=== PATIENT | female | born 1980 | race Caucasian/White ===

== ENCOUNTER 2020-11-27 14:43 | Outpatient (CLI) | payer OTHER, SELFPAY ==
--- NOTE | ~2020-11-27 | MM_ITS ---
EXAMINATION: MM screening [place] [facility] w jaciel HISTORY: Screening TECHNIQUE: Craniocaudal and mediolateral oblique 3-D tomosynthesis images were obtained and synthetic 2-D images were generated. CAD analysis was submitted and interpreted. COMPARISON: No prior mammogram is available for comparison at this institution. BREAST PARENCHYMAL COMPOSITION: There are scattered areas of fibroglandular density. FINDINGS: There is no evidence of suspicious mass, calcification, or architectural distortion to sugg est malignancy in either breast. There has been no suspicious interval change. IMPRESSION: 1. No mammographic evidence of malignancy. 2. Recommend routine screening mammography in one year. BI-RADS Category 1: Negative Reviewed, dictated and finalized at location A.
== END 2020-11-27 14:44 | disposition home or self-care (01) ==
LOC: ANHIMG 14:49
PROVIDERS: PCP Family Medicine; Visit Provider Nurse Practitioner Obstetrics & Gynecology
DX: Z12.31 Encounter for screening mammogram for malignant neoplasm of breast (principal)
CPT/HCPCS: 77063; 77067

== ENCOUNTER 2023-08-18 15:23 | Outpatient (CLI) | payer OTHER, SELFPAY ==
--- NOTE | ~2023-08-18 | MM_ITS ---
EXAMINATION: MM screening [place] [facility] w jaciel HISTORY: Screening mammogram TECHNIQUE: Craniocaudal and mediolateral oblique 3-D tomosynthesis images were obtained and synthetic 2-D images were generated. CAD analysis was submitted and interpreted. COMPARISON: 11/27/2020 bilateral screening mammogram BREAST PARENCHYMAL COMPOSITION: The breasts are almost entirely fatty. FINDINGS: There is no evidence of suspicious mass, calcification, or architectural distortion to sugg est malignancy in either breast. There has been no suspicious interval change. IMPRESSION: 1. No mammographic evidence of malignancy. 2. Recommend routine screening mammography in one year. BI-RADS Category 1: Negative Reviewed, dictated and finalized at location A.
== END 2023-08-18 15:24 | disposition home or self-care (01) ==
LOC: ANHIMG 15:24
PROVIDERS: PCP Internal Medicine; Visit Provider Nurse Practitioner Obstetrics & Gynecology
DX: Z12.31 Encounter for screening mammogram for malignant neoplasm of breast (principal)
CPT/HCPCS: 77063; 77067

== ENCOUNTER 2023-12-22 09:15 | Inpatient (IN) | payer MEDICARE, OTHER, SELFPAY ==
[2023-12-22] VITALS (17 sets, daily range): BP systolic 122–165; BP diastolic 75–102; PULSE 59–99; RESP 16–23; TEMP 36.7–36.8; O2SAT 95–100; BMI 43.0
--- NOTE | ~2023-12-22 | MR_ITS ---
EXAMINATION: MR thoracic spine wo con DATE: 12/22/2023 14:40 INDICATION: Saddle anesthesia. Low back pain. Lower extremity weakness. TECHNIQUE: Magnetic resonance imaging (MRI) of the thoracic spine was performed without intravenous c ontrast. COMPARISON: Lumbar spine MRI 12/19/2023 FINDINGS: There is 5 degrees levocurvature of upper thoracic spine. There is mild chronic anterior we dging of T8 vertebral body. There are Schmorl's nodes at multiple levels. There is mildly decreased d isc height from T2-T3 through T4-T5 and T7-T8 through T9-T10. At T2-T3, the disc is bulging with mild central canal stenosis. At T7-T8, there is a left central extrusion with mild central canal stenosis and indentation of the spinal cord. At T9-T10, there is a central extrusion with mild central canal stenosis and indentation of the spinal cord. There is multilevel mild facet joint osteoarthritis. On the right, there is mild neural foraminal stenosis at T2-T3. In the left, there is mild neural forami nal stenosis at T2-T3. There is increased T2-weighted signal intensity in the spinal cord involving t he torres matter at T9-T10. IMPRESSION: 1. Mild thoracic spondylosis. 2. 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 Reviewed, dictated and finalized at location A.
--- NOTE | ~2023-12-22 | XR_ITS ---
EXAMINATION: 1. CT cervical spine w con 2. XR myelogram spine cervical DATE: 12/28/2023 10:44 INDICATION: Cervical stenosis. TECHNIQUE: The procedure including the risks, benefits, and alternatives was discussed with the patie nt. Risks discussed included spinal headache, bleeding, and infection. The patient understood the ris ks and agreed to proceed. A timeout was performed to verify the patient's name, date of , and procedure to be performed. The skin overlying the L2-L3 level was prepped and draped in usual steri le fashion. Subcutaneous 1% lidocaine was used for local anesthesia. A 22 gauge spinal needle was a dvanced under fluoroscopic guidance. 10 mL Omnipaque 300 was injected into the thecal sac. The needle was removed and the entry site was cleaned and dressed. Multiple fluoroscopic images were obtained. There were no immediate complications. Fluoroscopy exposure time was 0.2 minutes. The total number of images was 3. Computed tomography (CT) of the thoracic spine was performed without intravenous contr ast. Automated exposure control and iterative reconstruction technique were employed. The dose-length product was 455.88 mGy-cm. COMPARISON: Cervical spine MRI 12/23/2023 FINDINGS: CERVICAL MYELOGRAM: Images demonstrate the needle in the thecal sac at L2-L3. Images demonstrate disp lacement of contrast to the cervical spine with the patient's head down. The contrast is faint by flu oroscopy and will be further described on the post myelogram CT. POST MYELOGRAM CERVICAL SPINE CT: There is 5 degrees levocurvature of the cervical spine. Vertebral b jodi heights are normal. Intervertebral disc heights are normal. The following disc levels are specifi rajeev discussed: C2-C3: There is moderate left uncovertebral joint osteoarthritis. There is mild bilateral facet joint osteoarthritis. There is mild left neural foraminal stenosis. There is no central canal stenosis. C3-C4: There is severe right uncovertebral joint osteoarthritis. There is mild bilateral facet joint osteoarthritis. There is mild right neural foraminal stenosis. There is no central canal stenosis. C4-C5: There is mild right and moderate left uncovertebral joint osteoarthritis. There is moderate le ft facet joint osteoarthritis. There is mild left neural foraminal stenosis. There is no central lalo l stenosis. C5-C6: There is a central extrusion. There is mild bilateral uncovertebral joint osteoarthritis. Ther e is mild bilateral facet joint osteoarthritis. There is no neural foraminal stenosis. There is mild central canal stenosis with ventral indentation of the spinal cord. C6-C7: There is no uncovertebral joint osteoarthritis. There is mild bilateral facet joint osteoarthr itis. There is no neural foraminal stenosis. There is no central canal stenosis. C7-T1: There is a central extrusion. There is mild right uncovertebral joint osteoarthritis. There is mild bilateral facet joint osteoarthritis. There is mild right neural foraminal stenosis. There is m ild central canal stenosis. IMPRESSION: 1. Mild cervical spondylosis. Reviewed, dictated and finalized at location A. IMPRESSION: 1. Mild cervical spondylosis.
--- NOTE | ~2023-12-22 | MR_ITS ---
Procedure: MR thoracic spine wo/w con Ordering provider: Micheline Shepherd History: . MS protocol . Comparison: None. Technique: MRI thoracic spine with and without contrast. 20 mL of MultiHance was given IV. FINDINGS: Motion artifacts degrading the images. SPINAL CORD: No definite abnormality seen. No abnormal enhancement of the spinal cord or spinal canal . VERTEBRAL BODIES: Normal height and alignment. No compression fracture. Normal marrow signal. No abno rmal marrow enhancement. DISK SPACES: Normal. STENOSIS: None. PARASPINOUS SOFT TISSUES: Normal. No abnormal enhancement of the paraspinous soft tissues. IMPRESSION: No definite abnormality seen with no definite enhancing lesions. Reviewed, dictated and finalized at location A.
--- NOTE | ~2023-12-22 | MR_ITS ---
MR brain/brain stem wo/w con Ordering provider: Micheline Shepherd PA-C History: 43 years Female with . MS protocol . Comparison: None. Technique: MRI brain was performed with and without contrast. 20 mL MultiHance was given IV. FINDINGS: BONES: Normal. CRANIOCERVICAL JUNCTION: normal. PITUITARY: Normal. MAJOR INTRACRANIAL VESSELS: Normal flow void. OPTIC NERVES AND CRANIAL NERVES VII AND VIII COMPLEXES: Grossly normal. BRAIN PARENCHYMA AND CSF SPACES: No visible white matter disease. The brainstem and cerebellum are n ormal. No acute or chronic intracranial hemorrhage. No extra axial fluid collections. Diffusion weigh argenis and ADC mapping images reveal no recent ischemia. No midline shift or mass effect. No abnormal co ntrast enhancement. PARANASAL SINUSES: Bilateral ethmoid sinus disease. MASTOIDS: Normal SUPERFICIAL/SURROUNDING SOFT TISSUES: Normal. IMPRESSION: 1. No acute intracranial process. No evidence of multiple sclerosis 2. No abnormal enhancement. Reviewed, dictated and finalized at location A.
--- NOTE | ~2023-12-22 | XR_ITS ---
EXAMINATION: XR lumbar puncture diagnostic DATE: 12/23/2023 22:12 INDICATION: Suspected acute transverse myelitis with several anesthesia and lower extremity weakness TECHNIQUE: The procedure including the risks and benefits was discussed with the patient. Risks discu ssed included spinal headache, cerebrospinal fluid leak, bleeding, and infection. The patient underst ood the risks and agreed to proceed. A timeout was performed to verify the patient's name, date of , and procedure to be performed. The skin overlying the L5-S1 level was prepped and draped in usual sterile fashion. Subcutaneous 1% lidocaine was used for local anesthesia. A 22 gauge spinal n eedle was advanced under fluoroscopic guidance. The needle was removed and the entry site was cleaned and dressed. There were no immediate complications. A total of 2 fluoroscopic images and a crosstab le lateral radiograph were obtained. The amount of fluoroscopy time used during this procedure was 0. 2 minutes. Total DAP was 33.03 Gycm^2. There were no immediate complications. FINDINGS: Real-time fluoroscopy demonstrates the needle at the L5-S1 level. Opening pressure was 19 c m water. (Normal range is variably defined as 6-20 cm water and up to 25 cm water in obese patients. Pressure >25 cm water is one of the modified Dandy criteria for idiopathic intracranial hypertension) . 13 mL of clear, colorless fluid was collected in 4 tubes. IMPRESSION: 1. Successful fluoro-guided lumbar puncture with normal opening pressure of 19 cm water. Reviewed, dictated and finalized at location A.
--- NOTE | ~2023-12-22 | XR_ITS ---
EXAMINATION: XR chest 2V DATE: 12/22/2023 11:23 INDICATION: Lower extremity weakness. Low back pain. Saddle anesthesia. TECHNIQUE: Frontal and lateral views of the chest were obtained. COMPARISON: None. FINDINGS: There is no pneumonia, pleural effusion, or pneumothorax. The heart size is normal. There a re surgical clips in the abdomen. IMPRESSION: 1. No acute cardiopulmonary disease. Reviewed, dictated and finalized at location A.
--- NOTE | ~2023-12-22 | MR_ITS ---
MR cervical spine wo/w con Ordering provider: Micheline Shepherd History: . MS protocol . Comparison: None. Technique: MRI cervical spine with and without contrast enhancement. 20 mL MultiHance was given IV. FINDINGS: CERVICAL SPINAL CORD/CRANIAL CERVICAL JUNCTION: T2 hyperintense signal areas seen in the cord opposit e the inferior aspect of C7. Marrow reconversion is seen in the C2, C3 and C4 versus hemangiomas. Nor mal in signal and caliber. No abnormal enhancement. CERVICAL VERTEBRAL BODIES: Normal height and alignment. Normal marrow signal. No abnormal marrow enha ncement. DISK SPACES: Well maintained. C2-C3: No stenosis. C3-C4: No stenosis. Diffuse disc bulge with slight narrowing of the right intervertebral foramen with nerve root compression.. C4-C5: Moderate spinal canal stenosis secondary to broad based disc bulge. Narrowing of the right in tervertebral foramen with root compression. C5-C6: Severe spinal canal stenosis secondary to broad based disc bulge. Slight narrowing of the rig ht intervertebral foramen. C6-C7: Mild spinal canal stenosis secondary to broad based disc bulge. Bilateral narrowing of the fo ramina with nerve root compression. C7-T1: No stenosis. VISUALIZED PARASPINOUS SOFT TISSUES: Normal. No abnormal enhancement. IMPRESSION: 1. Very small T2 hyperintense signal focus seen in the colon opposite C7 which may be a plaque. Foll ow-up advised. 2. Multilevel degenerative disc disease with variable degrees of spinal canal stenosis, intervertebr al foraminal narrowing and the root compression. 3. No abnormal enhancing lesions seen. Reviewed, dictated and finalized at location A. IMPRESSION: 1. Very small T2 hyperintense signal focus seen in the colon opposite C7 which may be a plaque. Follow-up advised. 2. Multilevel degenerative disc disease with variable degrees of spinal canal stenosis, intervertebral foraminal narrowing and the root compression. 3. No abnormal enhancing lesions seen.
--- NOTE | 2023-12-22 09:47 | ED.BACK ---
HPI - Back Pain/Injury General Chief Complaint: Back Pain/Injury <Micheline Shepherd PA-C - Last Filed: 12/22/23 18:31> Stated Complaint: lower back pain, bilateral leg numbness <RAYSA Ho Last Filed: 12/22/23 18:31> Time Seen by Provider: 12/22/23 09:23 <RAYSA Ho Last Filed: 12/22/23 18:31> Source: patient <RAYSA Ho Last Filed: 12/22/23 18:31> Mode of arrival: ambulatory (with walker) <RAYSA Ho Last Filed: 12/22/23 18:31> Limitations: no limitations <RAYSA Ho Last Filed: 12/22/23 18:31> History of Present Illness HPI Narrative: This is a 43-year-old female that presents to the emergency department for lower extremity weakness. Reports she called her neurosurgeon Dr Gaspar and was prompted to be seen in the ER for an MRI of her lumbar spine. Reports over the last several weeks she has had numbness in her right leg. Reports the last couple of days she now has numbness in her left leg. Reports numbness in her groin as well. She has not experienced bowel/bladder incontinence, but reports she just goes to the bathroom every couple hours to avoid that because she is unsure when she needs to urinate. Reports she has still been able to walk, but has to shuffle and use a walker. Denies fevers. <Micheline Shepherd PA-C - Last Filed: 12/22/23 18:31> Related Data Home Medications: Home Medications Medication Instructions Recorded Confirmed adalimumab 40 mg/0.4 mL 40 mg subcut [id number] 12/22/23 subcutaneous pen kit (Humira(CF) Pen) albuterol sulfate 90 mcg/actuation 2 inh inhalation Q4H PRN Shortness 12/22/23 12/22/23 aerosol inhaler Of Breath Or Wheezing aspirin 81 mg tablet,delayed 81 mg PO DAILY 12/22/23 12/22/23 release (Fred Low Dose Aspirin) clindamycin phosphate 1 % lotion 1 applic topical DAILY PRN Skin 12/22/23 12/22/23 Irritation doxycycline monohydrate 100 mg 100 mg PO BID 12/22/23 12/22/23 capsule furosemide 20 mg tablet 20 mg PO DAILY 12/22/23 12/22/23 hydroxychloroquine 200 mg tablet 200 mg PO BID 12/22/23 12/22/23 ketoconazole 2 % topical cream 1 applic topical BID PRN Skin 12/22/23 12/22/23 Irritation pantoprazole 40 mg tablet,delayed 40 mg PO DAILY 12/22/23 12/22/23 release prednisone 20 mg tablet 40 mg PO DAILY 12/22/23 12/22/23 rosuvastatin 40 mg tablet 40 mg PO DAILY 12/22/23 12/22/23 spironolactone 100 mg tablet 100 mg PO DAILY 12/22/23 12/22/23 triamcinolone acetonide 0.1 % 1 applic topical BID PRN Skin 12/22/23 12/22/23 topical cream Irritation varenicline 1 mg tablet 1 mg PO DAILY 12/22/23 12/22/23 gabapentin 100 mg capsule 100 mg PO BID 12/23/23 12/23/23 gabapentin 300 mg capsule 300 mg PO QHS 12/23/23 12/23/23 <Micheline Shepherd PA-C - Last Filed: 12/22/23 18:31> Allergies/Adverse Reactions: Allergies Allergy/AdvReac Type Severity Reaction Status Date / Time No Known Drug Allergies Allergy Mild Verified 06/21/09 19:23 <Micheline Shepherd PA-C - Last Filed: 12/22/23 18:31> Review of Systems Review of Systems: CONSTITUTIONAL: Denies fever MUSCULOSKELETAL: Reports back pain NEUROLOGIC: Reports numbness, and weakness. <RAYSA Ho Last Filed: 12/22/23 18:31> All systems reviewed & are unremarkable except as noted in HPI and below <Micheline Shepherd PA-C - Last Filed: 12/22/23 18:31> [facility] Past Medical History Medical History: Medical History (Updated 12/23/23 @ 05:09 by Antonieta Ornelas DO) Asthma Cutaneous lupus erythematosus Degenerative disc disease Essential hypertension GERD (gastroesophageal reflux disease) Hyperlipidemia Migraine Obstructive sleep apnea Rheumatoid arthritis <Micheline Shepherd PA-C - Last Filed: 12/22/23 18:31> Surgical History Surgical History: Surgical History (Updated 12/23/23 @ 05:09 by Antonieta Ornelas DO) History of (2001) History of cardiac catheterization No stents Hx of cholecystectomy (~12/2022) <Micheline Shepherd PA-C - Last Filed: 12/22/23 18:31> Social History Social History: Social History (Updated 12/22/23 @ 10:16 by Micheline Shepherd PA-C) Smoking status: Light tobacco smoker Tobacco type: cigarettes Alcohol intake: current Drinks per week: 1 Substance use: current Substance use type: marijuana Other substance usage details: daily Last use: 12/22/23 Do You Feel Safe in your Home?: Yes Lack of Transportation: No Lack of Food: Never True Current Housing: I Have Housing Concerned About Future Housing: No Difficulty Paying Gas/Electric Bills: No Difficulty Paying for Meds: No Currently Unemployed: No Education: Associate Degree Difficulty w/ Childcare or Family Care: No Spiritual care concerns: No <Micheline Shepherd PA-C - Last Filed: 12/22/23 18:31> Exam Narrative: GENERAL: Well-appearing, well-nourished, and in no acute distress. HEAD: Normocephalic, atraumatic. EYES: EOMI. CHEST: Clear to auscultation. No respiratory distress. No wheezes rales or rhonchi HEART: Regular rate and rhythm. No murmur heard. Normal peripheral pulses. EXTREMITIES: Normal range of motion in the feet and ankle. Unable to bend at the knee due to weakness. No edema. Normal DP pulses. Patient unable to feel pinprick to the legs bilaterally SKIN: Warm, dry, no rash. NEURO: No focal deficits. Alert and oriented x3. PSYCH: Normal mood and affect <Micheline Shepherd PA-C - Last Filed: 12/22/23 18:31> Course Course Emergency Course: We are not able to get an MRI today, Dr. Gaspar recommends transfer to somewhere who can do a more urgent MRI Spoke with Dr. Gaspar again. As I was not able to get patient transferred. Initial plan was for MRI in the morning. Dr Gaspar believes she still needs imaging more urgently than that. MRI is able to get her in this afternoon <Micheline Shepherd PA-C - Last Filed: 12/22/23 18:31> CLINICAL OPERATIONS MANAGER/PA Physician Supervision For this patient encounter, I reviewed the CLINICAL OPERATIONS MANAGER or PA documentation, treatment plan, and medical decision making; and I had [id number] time with this patient. <Cayden Scherer MD - Last Filed: 12/23/23 07:28> Consultations Consultation #1: Spoke with Dr. Gaspar about patient and workup who would like patient to have an urgent MRI of the thoracic spine in the ER for surgical planning Dr. Gaspar does not see any structural lesions that would need immediate surgery/ explain the myelomalacia at T9/10. Recommends admission with neurology consult <Micheline Shepherd PA-C - Last Filed: 12/22/23 18:31> Date: 12/22/23 <Micheline Shepherd PA-C - Last Filed: 12/22/23 18:31> Consultation #2: Spoke with [facility] who is unable to accept the patient at this time as they are on red status <Micheline Shepherd PA-C - Last Filed: 12/22/23 18:31> Date: 12/22/23 <Micheline Shepherd PA-C - Last Filed: 12/22/23 18:31> Consultation #3: Spoke with [facility] hospital system. Patient was initially accepted by the hospitalist at [facility]. Neurosurgery then declined to consult for transfer <Micheline Shepherd PA-C - Last Filed: 12/22/23 18:31> Date: 12/22/23 <Micheline Shepherd PA-C - Last Filed: 12/22/23 18:31> Additional Consultation(s): Spoke with Dr. Montero who will consult. Recommends MR with and without contrast of the brain, cervical, and thoracic spine to rule out MS Spoke with hospitalist about patient and workup who accepts admission <Micheline Shepherd PA-C - Last Filed: 12/22/23 18:31> Vital Signs Vital signs: Vital Signs Temperature 98.1 F 12/22/23 09:16 Pulse Rate 60 12/22/23 09:16 Respiratory Rate 18 12/22/23 09:16 Blood Pressure 143/83 H 12/22/23 09:16 Pulse Oximetry 98 12/22/23 09:16 Oxygen Delivery Room Air 12/22/23 09:16 Temperature 98.2 F 12/23/23 05:24 Pulse Rate 57 L 12/23/23 05:24 Respiratory Rate 18 12/23/23 05:24 Blood Pressure 111/74 12/23/23 05:24 Pulse Oximetry 99 12/23/23 05:24 Oxygen Delivery Room Air 12/22/23 20:00 <Micheline Shepherd PA-C - Last Filed: 12/22/23 18:31> Vital Signs Temperature 98.1 F 12/22/23 09:16 Pulse Rate 60 12/22/23 09:16 Respiratory Rate 18 12/22/23 09:16 Blood Pressure 143/83 H 12/22/23 09:16 Pulse Oximetry 98 12/22/23 09:16 Oxygen Delivery Room Air 12/22/23 09:16 Temperature 98.2 F 12/23/23 05:24 Pulse Rate 57 L 12/23/23 05:24 Respiratory Rate 18 12/23/23 05:24 Blood Pressure 111/74 12/23/23 05:24 Pulse Oximetry 99 12/23/23 05:24 Oxygen Delivery Room Air 12/22/23 20:00 <Cayden Scherer MD - Last Filed: 12/23/23 07:28> MDM - Back Pain/Injury MDM Narrative Medical decision making narrative: Patient presents to the emergency department for bilateral lower extremity weakness. Progressively ongoing over the last couple of weeks. Reports saddle anesthesia. She is unable to flex at the knee. She is able to move her feet and ankles. She has normal peripheral pulses. She is insensate to pinprick sensation from the feet to the hips bilaterally. Unable to feel when she needs to urinate. Neurosurgery had sent her to the ER to have an urgent MRI of her thoracic spine. Originally I was likely not going to be able to perform the MRI here in the ER. Dr. Gaspar then recommended transfer to a hospital that would be able to do this. Spoke with [facility] who is unable to accept the patient at this time as they are on red status. Spoke with [facility] system. Patient was initially accepted by the hospitalist at [facility]. Neurosurgery then declined to consult for transfer. Spoke with Dr. Gaspar again. As I was not able to get patient transferred. Initial plan was for MRI in the morning. Dr Gaspar believes she still needs imaging more urgently than that. As she could potentially have a lesion that would not recover as we wait longer. MRI is able to get her in this afternoon. Her MRI of the thoracic spine shows myelomalacia at T9/T10. Dr. Gaspar recommends admission for consult with Neurology as she does not see a structural lesion to explain this. Spoke with Dr. Montero who will consult. Recommends MR with and without contrast of the brain, cervical, and thoracic spine to rule out MS. Spoke with hospitalist about patient and workup accepts admission <Micheline Shepherd PA-C - Last Filed: 12/22/23 18:31> Differential Diagnosis Differential diagnosis: Likely lumbar radiculopathy, discitis and other (MS, transverse myelitis, cauda equina) <Micheline Shepherd PA-C - Last Filed: 12/22/23 18:31> Lab Data Attestation: I reviewed the patient's lab results. <Micheline Shepherd PA-C - Last Filed: 12/22/23 18:31> Result diagrams: 12/22/23 10:16 12/22/23 10:16 <Micheline Shepherd PA-C - Last Filed: 12/22/23 18:31> Labs: Lab Results 12/22/23 12/22/23 Range/Units 10:16 10:55 WBC 10.3 H (4.5-10.0) K/mm3 RBC 4.55 (4.2-5.4) M/mm3 Hgb 14.8 (12.0-15.0) g/dL Hct 43.7 (37.0-47.0) % MCV 96.0 (80-100) fl MCH 32.5 (26-34) pg MCHC 33.9 (32-36) g/dl RDW 13.2 (11.5-14.5) % Plt Count 222 (150-375) k/mm3 MPV 10.2 (7.4-10.4) fl Immature Gran % (Auto) 0.4 (0-0.5) % Neut % (Auto) 85.8 H (45.5-73.1) % Lymph % (Auto) 10.1 L (18.3-44.2) % Knox % (Auto) 3.6 (2.6-8.5) % Eos % (Auto) 0.0 (0-4.4) % Baso % (Auto) 0.1 L (0.2-1.2) % Lymph # (Auto) 1.04 (0.9-3.2) K/mm3 Knox # (Auto) 0.4 (0.1-0.6) K/mm3 Eos # (Auto) 0.0 (0-0.3) K/mm3 Baso # (Auto) 0.0 (0.0-0.1) K/mm3 Abs Immat Gran (auto) 0.04 H (0.00-0.031) K/mm3 Absolute Neuts (auto) 8.9 H (1.3-6.7) K/mm3 Absolute Nucleated RBC 0.000 (0.0-0.012) K/mm3 Nucleated RBC % 0.0 (0.0-0.2) % PT 13.7 (11.1-14.7) Seconds INR 1.0 APTT 22.4 (22.3-36.8) Seconds Sodium 133 L (137-145) mmol/L Potassium 4.7 (3.4-5.0) mmol/L Chloride 102 (98-107) mmol/L Carbon Dioxide 26 (22-30) mmol/L Anion Gap 5 (4-12) mmol/L BUN 16 (7-17) mg/dL Creatinine 1.10 H (0.7-1.0) mg/dL Estim Creat Clear Calc 72 ml/min Estimated GFR 54 L (59 - ) Glucose 113 H (65-110) mg/dL Calcium 9.2 (8.4-10.2) mg/dL POC Urine HCG, Qual Negative POC Ur Preg QC Yes <Micheline Shepherd PA-C - Last Filed: 12/22/23 18:31> Lab Results 12/22/23 12/22/23 Range/Units 10:16 10:55 WBC 10.3 H (4.5-10.0) K/mm3 RBC 4.55 (4.2-5.4) M/mm3 Hgb 14.8 (12.0-15.0) g/dL Hct 43.7 (37.0-47.0) % MCV 96.0 (80-100) fl MCH 32.5 (26-34) pg MCHC 33.9 (32-36) g/dl RDW 13.2 (11.5-14.5) % Plt Count 222 (150-375) k/mm3 MPV 10.2 (7.4-10.4) fl Immature Gran % (Auto) 0.4 (0-0.5) % Neut % (Auto) 85.8 H (45.5-73.1) % Lymph % (Auto) 10.1 L (18.3-44.2) % Knox % (Auto) 3.6 (2.6-8.5) % Eos % (Auto) 0.0 (0-4.4) % Baso % (Auto) 0.1 L (0.2-1.2) % Lymph # (Auto) 1.04 (0.9-3.2) K/mm3 Knox # (Auto) 0.4 (0.1-0.6) K/mm3 Eos # (Auto) 0.0 (0-0.3) K/mm3 Baso # (Auto) 0.0 (0.0-0.1) K/mm3 Abs Immat Gran (auto) 0.04 H (0.00-0.031) K/mm3 Absolute Neuts (auto) 8.9 H (1.3-6.7) K/mm3 Absolute Nucleated RBC 0.000 (0.0-0.012) K/mm3 Nucleated RBC % 0.0 (0.0-0.2) % PT 13.7 (11.1-14.7) Seconds INR 1.0 APTT 22.4 (22.3-36.8) Seconds Sodium 133 L (137-145) mmol/L Potassium 4.7 (3.4-5.0) mmol/L Chloride 102 (98-107) mmol/L Carbon Dioxide 26 (22-30) mmol/L Anion Gap 5 (4-12) mmol/L BUN 16 (7-17) mg/dL Creatinine 1.10 H (0.7-1.0) mg/dL Estim Creat Clear Calc 72 ml/min Estimated GFR 54 L (59 - ) Glucose 113 H (65-110) mg/dL Calcium 9.2 (8.4-10.2) mg/dL POC Urine HCG, Qual Negative POC Ur Preg QC Yes <Cayden Scherer MD - Last Filed: 12/23/23 07:28> Imaging Data Radiologist's impression: ITS Impressions Chest X-Ray 12/22/23 11:24 IMPRESSION: 1. No acute cardiopulmonary disease. Thoracic Spine MRI 12/22/23 14:41 IMPRESSION: 1. Mild thoracic spondylosis. 2. 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 <Micheline Shepherd PA-C - Last Filed: 12/22/23 18:31> ECG Data EKG #1: ECG completion date: 12/22/23 <Micheline Shepherd PA-C - Last Filed: 12/22/23 18:31> EKG Interpretation: bradycardia, sinus rhythm, no ST changes and normal QT <Micheline Shepherd PA-C - Last Filed: 12/22/23 18:31> Critical Care Time Critical Care Time Critical Care Time: Yes <Micheline Shepherd PA-C - Last Filed: 12/22/23 18:31> Total Critical Care Time: 35 <Micheline Shepherd PA-C - Last Filed: 12/22/23 18:31> Discharge Plan Discharge Clinical Impression: Bilateral leg weakness, Myelomalacia <Micheline Shepherd PA-C - Last Filed: 12/22/23 18:31> Patient Disposition: Still a Patient <Micheline Shepherd PA-C - Last Filed: 12/22/23 18:31> Condition: Serious <Micheline Shepherd PA-C - Last Filed: 12/22/23 18:31>
[2023-12-22 10:22] LABS: Basophils Percent Auto 0.1 % (0.2-1.2); Hematocrit 43.7 % (37.0-47.0); Hemoglobin 14.8 g/dL (12.0-15.0); Immature Granulocyte Absolute 0.04 K/mm3 (0.00-0.031); Immature Granulocyte Percent A 0.4 % (0-0.5); Lymphocytes Absolute Auto 1.04 K/mm3 (0.9-3.2); Lymphocytes Percent Auto 10.1 % (18.3-44.2); Mean Corpuscular HGB Conc 33.9 g/dl (32-36); Mean Corpuscular Hemoglobin 32.5 pg (26-34); Mean Platelet Volume 10.2 fl (7.4-10.4); Monocytes Absolute Auto 0.4 K/mm3 (0.1-0.6); Monocytes Percent Auto 3.6 % (2.6-8.5); Neutrophils Absolute Auto 8.9 K/mm3 (1.3-6.7); Neutrophils Percent Auto 85.8 % (45.5-73.1); Platelet Count Result 222 k/mm3 (150-375); Red Blood Count 4.55 M/mm3 (4.2-5.4); Red Cell Distribution Width 13.2 % (11.5-14.5); White Blood Count 10.3 K/mm3 (4.5-10.0)
--- NOTE | 2023-12-22 10:33 | ECG_ITS ---
Test Date: 2023-12-22 10:52:25 Measurements Intervals [place] Rate: 49 P: 52 OK: 141 QRS: 25 QRSD: 88 T: 28 QT: 431 QTc: 391 Interpretive Statements SINUS BRADYCARDIA No previous ECG available for comparison Electronically Signed On 12-22-2023 13:37:35 CDT by Young Lozada M.D.
[2023-12-22 10:34] LABS: Anion Gap 5 mmol/L (4-12); Blood Urea Nitrogen 16 mg/dL (7-17); Calcium 9.2 mg/dL (8.4-10.2); Carbon Dioxide 26 mmol/L (22-30); Chloride 102 mmol/L (98-107); Estimated CRCL calculation 72 ml/min; Estimated Glomerular Filt Rate 54; Glucose 113 mg/dL (65-110); Potassium 4.7 mmol/L (3.4-5.0); Sodium 133 mmol/L (137-145)
[2023-12-22 10:56] LABS: BEDSIDEPREGUCG Negative
[2023-12-22 11:01] LABS: Prothrombin Time 13.7 Seconds (11.1-14.7)
[2023-12-22 11:02] LABS: Partial Thromboplastin Time 22.4 Seconds (22.3-36.8)
[2023-12-22] MEDS: MORPHINE SULFATE (*CRX) 4 MG/ML INJ IV PUSH (11:43)
[2023-12-22] MEDS: ONDANSETRON INJ 4 MG/2 ML VIAL IV PUSH (11:43)
[2023-12-22] MEDS: LORazepam INJ (*CRX) 2 MG/ML VIAL 0.5 MG IV PUSH (14:10)
--- NOTE | 2023-12-22 17:32 | WPDNEUROSGCN ---
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 Ferrell is a 43-year-old female who has had progressive lower extremity weakness, numbness from the waist down, and inability to sense bowel or bladder function over the last 12 days. On physical exam, she has a sensory level around T9-10 and does have objective weakness in both legs with fairly minimal movement in her distal legs. MRI thoracic spine shows a faint cord signal change at the T9-10 level. I also reviewed her outside MRI lumbar spine which does show fairly diffuse degenerative changes and [id number] stenosis most prominently at L3-4. I do not see any large disc herniation or other compressive lesion in her thoracic spine to explain her symptoms. Possible diagnoses at this time could be transverse myelitis or a demyelinating lesion. I would recommend a Neurology consult. I would also suggest repeating an MRI thoracic spine with contrast. She may require a lumbar puncture, but I will defer that decision to Neurology. It would be important to bladder scan her to evaluate for urinary retention. I do not recommend any surgical intervention at this time. Plan: -Recommend Neurology consultation -Recommend MRI thoracic spine with contrast when able Consult date: 12/22/23 HPI: Ana Ferrell is a 43 year old female with history of lupus, rheumatoid arthritis, and chronic kidney disease who presented to the ER today on my advice for evaluation of progressive lower extremity numbness and weakness over the last 2 weeks. Around December 08, she started noticing some numbness in her right leg. The following day, she was helping a friend move, during which she noticed significant weakness of her right leg to the point that she had to drag it to walk. She also had progressive numbness from the waist down at this point. Four days ago, she developed similar weakness in the left leg to the point that she is unable to ambulate normally or independently. She now is completely numb from the waist down. She has chronically had some issues with bowel or bladder function, but in the last week or 2, she has been unable to sense when she needs to use the restroom. She says an alarm on her phone for every 2 hours to sit on the toilet in case she needs to go. She went to her primary care physician who sent her to the emergency room at [place]. In the ER, they obtained an MRI lumbar spine and discharge her with outpatient follow-up with me. When I saw her pop up on my schedule yesterday afternoon, I called her and got the same information as above. I recommended that she go back to the emergency room yesterday afternoon for an emergent MRI thoracic spine. She apparently waited until this morning and presented to the ER at [place]. She describes a long history of lower back pain that can radiate up her back, sometimes to her shoulders. She also can have pain that radiates into the legs. She does follow with a pain management physician at [facility] in [place]. She had an epidural steroid injection around October 23. She denies any recent infections, viral illnesses, or vaccines. She has some occasional paresthesias in her upper extremities, but she denies any new and progressive numbness or weakness in her arms or hands. Review of Systems Review of Systems: All systems reviewed & are unremarkable except as noted in HPI and below PMFSH Past Medical History Medical History (Updated 12/22/23 @ 17:47 by Blaire Gaspar MD) History of gastroesophageal reflux (GERD) History of hyperlipidemia History of rheumatoid arthritis Social History Social History (Updated 12/22/23 @ 10:16 by Micheline Shepherd PA-C) Substance use: never Meds Home Medications and Allergies Allergies Allergy/AdvReac Type Severity Reaction Status Date / Time No Known Drug Allergies Allergy Mild Verified 06/21/09 19:23 Vital Signs Vital Signs - 24 hr 12/22/23 09:16 12/22/23 10:22 12/22/23 11:25 Temperature 98.1 F Pulse Rate 60 99 95 Respiratory Rate 18 19 19 Blood Pressure 143/83 H 123/78 141/87 H Pulse Oximetry 98 97 99 Oxygen Delivery Room Air 12/22/23 11:48 12/22/23 13:19 12/22/23 15:14 Temperature Pulse Rate 60 59 L 65 Respiratory Rate 17 17 23 H Blood Pressure 122/77 123/75 122/77 Pulse Oximetry 96 97 99 Oxygen Delivery Exam Narrative: Sensory level around T9 or T10 No sensation to light touch or pain in lower extremities 2/5 bilateral hip flexors, 3/5 knee extension, minimal movement in dorsiflexion/plantar flexion Unless otherwise stated above, the patient's physical exam is as follows: General: -Well developed and well nourished. No acute distress. Cooperative with exam. Mental status: -Awake and oriented to person, place, and time. Integumentary: -No obvious skin lesions or masses Motor: -Muscle tone normal without spasticity of flaccidity. No atrophy. No fasciculations. -No pronator drift -Right upper extremity: deltoid 5/5, biceps 5/5, triceps 5/5, wrist extensors 5/5, wrist flexors 5/5, intrinsics 5/5 -Left upper extremity: deltoid 5/5, biceps 5/5, triceps 5/5, wrist extensors 5/5, wrist flexors 5/5, intrinsics 5/5 -Right lower extremity: iliopsoas 5/5, quadriceps 5/5, hamstrings 5/5, tibialis anterior 5/5, gastroc-soleus 5/5, EHL 5/5 -Left lower extremity: iliopsoas 5/5, quadriceps 5/5, hamstrings 5/5, tibialis anterior 5/5, gastroc-soleus 5/5, EHL 5/5 Sensory: -Intact to light touch throughout -Normal proprioception throughout Reflexes: -1-2+ DTR's throughout -No Edwards's, clonus, or Babinski bilaterally Results Labs 12/22/23 10:16 12/22/23 10:16 Labs: Short CBC 12/22/23 Range/Units 10:16 WBC 10.3 H (4.5-10.0) K/mm3 Hgb 14.8 (12.0-15.0) g/dL Hct 43.7 (37.0-47.0) % Plt Count 222 (150-375) k/mm3 [facility] 12/22/23 10:16 Sodium 133 L Potassium 4.7 Chloride 102 Carbon Dioxide 26 BUN 16 Creatinine 1.10 H Glucose 113 H Calcium 9.2 Imaging My impression: I personally viewed the MRI thoracic spine without contrast. This shows a small signal abnormality within the spinal cord at T9-10 on the STIR image. I do not see any obvious compressive lesion in the thoracic spine. I personally reviewed the recent MRI lumbar spine that was performed on December 19. There is fairly significant degenerative disc disease at L1-2, L2-3, and L3-4. There is epidural lipomatosis throughout the lumbar spine. There is mild central stenosis at L2-3 and [id number] central stenosis at L3-4
--- NOTE | 2023-12-22 19:57 | PC.NURSE ---
This patient, Ana Ferrell, was admitted to [facility] Surg Room 300-01. Patient/family oriented to hospital policies and general routines including ID bracelet, bed and alarms, visiting hours, pain management, procedures, bathroom and other care routines, personal items, smoking policy, room service/diet, and visiting hours. Information on how to activate the Rapid Response Team has been discussed. Patient/Family are encouraged to report perceived risks to care and to ask questions if they do not understand what they are told or what they should do.
[2023-12-22] MEDS: HYDROcodone/acetaminophen (*CRX) 5-325 MG TABLET 1 TAB PO (21:11)
[2023-12-22] MEDS: MORPHINE SULFATE (*CRX) 2 MG/ML INJ IV PUSH (21:12)
[2023-12-23] VITALS (9 sets, daily range): BP systolic 111–134; BP diastolic 63–80; PULSE 57–75; RESP 18–20; TEMP 36.8; O2SAT 94–99
--- NOTE | 2023-12-23 04:59 | P.HP_ITS ---
H&P: HPI History of Present Illness Date/Time: 12/23/23 04:59 Chief Complaint: Back pain, difficulty walking, urinary symptoms Narrative: 43-year-old female with a past medical history of migraines, hyperlipidemia, hypertension, asthma, obstructive sleep apnea, stage 3 chronic kidney disease, rheumatoid arthritis, cutaneous lupus, hidradenitis suppurative, GERD and other comorbidities who presented to the ER with leg numbness and weakness. The patient reports that she has chronic back pain that is been worse than usual the pain is in the lower thoracic region. She describes the pain as a pulling in nature in is a 7/10 in intensity. The pain can radiate upper back into her shoulders. Sometimes the pain radiates down into her legs as well. She reports that she had an epidural steroid injection in the middle of October. She reports that since the end of November she has had numbness down her right hip and the lower extremity. Then approximately 5 days ago she felt numbness in her left lower extremity. She has had to drag her legs in order to walk. Her numbness has progressed the point that she has numbness from the waist down. She then states that she does not realize when she needs to urinate. She has been making herself go to the bathroom every 2 hours in sit on the toilet until she urinat es. She has been having normally formed bowel movements. She has numerous bruises in various stages of healing that she reports is due to not being able to since her legs and falling frequently. She has been ambulating at home with a walker by shuffling her feet. She denies any numbness or tingling in her upper extremities or weakness. She denies any sensation to light touch or pain in her lower extremities. She denies any movement in her lower extremities but patient was noted to flex legs from hips and was able to straight her legs slightly. She has no movement with dorsiflexion and plantar flexion. She denies any known acute back injury. She reports that her Lafutimide was recent ly discontinued as it was causing stomach upset. She is still taking her hydro chloroquine. She is also on gabapentin 3 times a day which has not been helping foot with her pain. She reports that she was placed on spironolactone and Lasix several years ago due to fluid retention with her chronic kidney disease and she has been on these medications since that time. She was started on prednisone on the but reported to nursing staff that she had not taken it since the for uncertain reasons. Review of Systems Review of Systems: 12 systems were reviewed with pertinent positives and negatives per HPI. Except as documented in the HPI, all other systems were reviewed and are negative. [facility] Past Medical History Medical History (Updated 12/23/23 @ 07:54 by Antonieta Ornelas DO) Asthma Cutaneous lupus erythematosus Degenerative disc disease Essential hypertension GERD (gastroesophageal reflux disease) Hyperlipidemia Migraine Obstructive sleep apnea Intermittent compliance Rheumatoid arthritis Surgical History Surgical History (Updated 12/23/23 @ 05:09 by Antonieta Ornelas DO) History of (2001) History of cardiac catheterization No stents Hx of cholecystectomy (~12/2022) Family History Family History (Updated 12/23/23 @ 07:58 by Antonieta Ornelsa DO) Mother , in her early 70s DVT (deep venous thrombosis) Rheumatoid arthritis Cerebrovascular accident Thyroid disease Father , in his late 60s of complications of cystectomy Bladder cancer Diabetes mellitus Rheumatoid arthritis Sibling SLE (systemic lupus erythematosus related syndrome) Thyroid disease Sibling Gunshot wound Social History Social History (Updated 12/23/23 @ 08:01 by Antonieta Ornelas DO) Social History: She lives with her ex-. They are now back in a committed relationship and are engaged for the last 5 years. She has a daughter who is 22 years old. She has a 2-year-old grandchild and a 3-month-old grandchild. She has smoked on average 0.5 packs of cigarettes per day since she was 14 years old. She rarely drinks alcohol. She smokes marijuana on a frequent basis to help with pain control. She denies other illicit substance use. Code status: Full code Surrogate decision maker: Naldo Ferrell (fiance) Smoking packs per day: 0.5 Smoking cigarettes per day: 10.0 Years smoked: 39 Smoking pack-years: 19.50 Smoking status: Current every day smoker Tobacco type: cigarettes Alcohol intake: current Drinks per week: 1 Substance use: current Substance use type: marijuana Other substance usage details: daily Last use: 12/22/23 Do You Feel Safe in your Home?: Yes Lack of Transportation: No Lack of Food: Never True Current Housing: I Have Housing Concerned About Future Housing: No Difficulty Paying Gas/Electric Bills: No Difficulty Paying for Meds: No Currently Unemployed: No Education: Associate Degree Difficulty w/ Childcare or Family Care: No Spiritual care concerns: No Meds Home Medications and Allergies Home Medications Medication Instructions Recorded Confirmed Type adalimumab 40 mg/0.4 mL 40 mg subcut [id number] 12/22/23 History subcutaneous pen kit (Humira(CF) Pen) albuterol sulfate 90 mcg/actuation 2 inh inhalation Q4H PRN Shortness 12/22/23 12/22/23 History aerosol inhaler Of Breath Or Wheezing aspirin 81 mg tablet,delayed 81 mg PO DAILY 12/22/23 12/22/23 History release (Fred Low Dose Aspirin) clindamycin phosphate 1 % lotion 1 applic topical DAILY PRN Skin 12/22/23 12/22/23 History Irritation doxycycline monohydrate 100 mg 100 mg PO BID 12/22/23 12/22/23 History capsule furosemide 20 mg tablet 20 mg PO DAILY 12/22/23 12/22/23 History hydroxychloroquine 200 mg tablet 200 mg PO BID 12/22/23 12/22/23 History ketoconazole 2 % topical cream 1 applic topical BID PRN Skin 12/22/23 12/22/23 History Irritation pantoprazole 40 mg tablet,delayed 40 mg PO DAILY 12/22/23 12/22/23 History release prednisone 20 mg tablet 40 mg PO DAILY 12/22/23 12/22/23 History rosuvastatin 40 mg tablet 40 mg PO DAILY 12/22/23 12/22/23 History spironolactone 100 mg tablet 100 mg PO DAILY 12/22/23 12/22/23 History triamcinolone acetonide 0.1 % 1 applic topical BID PRN Skin 12/22/23 12/22/23 History topical cream Irritation varenicline 1 mg tablet 1 mg PO DAILY 12/22/23 12/22/23 History gabapentin 100 mg capsule 100 mg PO BID 12/23/23 12/23/23 History gabapentin 300 mg capsule 300 mg PO QHS 12/23/23 12/23/23 History Allergies Allergy/AdvReac Type Severity Reaction Status Date / Time No Known Drug Allergies Allergy Mild Verified 06/21/09 19:23 Vital Signs Vital Signs - 24 hr 12/22/23 09:16 12/22/23 10:22 12/22/23 11:25 Temperature 98.1 F Pulse Rate 60 99 95 Respiratory Rate 18 19 19 Blood Pressure 143/83 H 123/78 141/87 H Pulse Oximetry 98 97 99 Oxygen Delivery Room Air 12/22/23 11:48 12/22/23 13:19 12/22/23 15:14 Temperature Pulse Rate 60 59 L 65 Respiratory Rate 17 17 23 H Blood Pressure 122/77 123/75 122/77 Pulse Oximetry 96 97 99 Oxygen Delivery 12/22/23 11:51 12/22/23 12:00 12/22/23 12:15 Temperature Pulse Rate Respiratory Rate Blood Pressure Pulse Oximetry 96 96 96 Oxygen Delivery 12/22/23 12:30 12/22/23 12:45 12/22/23 13:00 Temperature Pulse Rate Respiratory Rate Blood Pressure Pulse Oximetry 97 95 98 Oxygen Delivery 12/22/23 13:15 12/22/23 17:52 12/22/23 18:00 Temperature Pulse Rate 74 Respiratory Rate 16 Blood Pressure 159/102 H Pulse Oximetry 96 96 100 Oxygen Delivery 12/22/23 20:29 12/22/23 20:00 Temperature 98.3 F Pulse Rate 71 Respiratory Rate 18 Blood Pressure 165/78 H Pulse Oximetry 99 Oxygen Delivery Room Air Exam Narrative: Weight 117.2 kg BMI 43 Const: Other: Obese, no acute distress, sitting in bed with head of bed at 60?, appears stated age HENMT: Other: Crowded posterior oropharynx, mucous membranes are tacky, no oral pharyngeal erythema Eyes: Other: Pupils are equal and reactive, extraocular movements intact, no scleral icterus Neck: Other: Large neck circumference, difficult to assess for thyromegaly, no obvious JVD Resp: Other: Clear to auscultation bilaterally, no increased work of breathing Cardio: Other: Regular rate, regular rhythm, 2+ bilateral radial pedal pulses GI: Other: Soft, nontender, obese, normoactive bowel sounds Skin: Other: Numerous bruises to bilateral lower extremities of various stages of healing, no evidence petechiae, no open wounds Neuro: Other: Alert oriented, speech is clear, no facial asymmetry, cranial nerves 2-12 appear to be grossly intact, patient has 2+ deep tendon reflexes patellar bilaterally, decreased sensation from the waist down bilaterally, normal muscle tone, no clonus, absent Babinski, no fasciculations Extrem: Other: No edema, multiple areas of bruising, patient reports no movement of the lower extremities but does have some movement when distracted, however no witnessed movement of plantar dorsiflexion Psych: Other: Pleasant and cooperative, appropriate mood and affect H&P: Results Labs Labs: Laboratory Tests 12/22/23 10:16 12/22/23 10:16 12/22/23 12/22/23 10:16 10:55 WBC 10.3 H RBC 4.55 Hgb 14.8 Hct 43.7 MCV 96.0 MCH 32.5 MCHC 33.9 RDW 13.2 Plt Count 222 MPV 10.2 Immature Gran % (Auto) 0.4 Neut % (Auto) 85.8 H Lymph % (Auto) 10.1 L Green % (Auto) 3.6 Eos % (Auto) 0.0 Baso % (Auto) 0.1 L Lymph # (Auto) 1.04 Green # (Auto) 0.4 Eos # (Auto) 0.0 Baso # (Auto) 0.0 Abs Immat Gran (auto) 0.04 H Absolute Neuts (auto) 8.9 H Absolute Nucleated RBC 0.000 Nucleated RBC % 0.0 PT 13.7 INR 1.0 APTT 22.4 Sodium 133 L Potassium 4.7 Chloride 102 Carbon Dioxide 26 Anion Gap 5 BUN 16 Creatinine 1.10 H Estim Creat Clear Calc 72 Estimated GFR 54 L Glucose 113 H Calcium 9.2 POC Urine HCG, Qual Negative POC Ur Preg QC Yes Impressions Chest X-Ray 12/22/23 11:24 IMPRESSION: 1. No acute cardiopulmonary disease. Thoracic Spine MRI 12/22/23 14:41 IMPRESSION: 1. Mild thoracic spondylosis. 2. 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 Assessment and Plan Assessment and plan (1) Myelomalacia: Code(s): G95.89 - Other specified diseases of spinal cord Status: Acute (2) Intramedullary abnormality of spinal cord: Code(s): G95.9 - Disease of spinal cord, unspecified Status: Acute (3) Bilateral leg weakness: Code(s): R29.898 - Other symptoms and signs involving the musculoskeletal system Status: Acute (4) Obstructive sleep apnea: Code(s): G47.33 - Obstructive sleep apnea (adult) (pediatric) Status: Acute (5) Acute on chronic back pain: Code(s): M54.9 - Dorsalgia, unspecified; G89.29 - Other chronic pain Status: Acute Plan Patient was evaluated by neuro surgery who feels the patient would be best served by evaluation by Neurology. MRI of the cervical spine, thoracic spine and lumbar spine has been ordered. Neurology has been consulted and will await further recommendations. Will continue pain medications as needed. Will resume patient's home hydroxychloroquine gabapentin and prednisone. Will request nursing staff to check for postvoid residuals to ensure complete bladder emptying. Patient does have obstructive sleep apnea but it sounds like she has not all that compliant with CPAP and she had CPAP brought to the room but patient refused CPAP earlier in the evening. She has agreed to use CPAP it is supplied. Will attempt to re ordering auto titrating CPAP/BiPAP. Patient does have chronic kidney disease. Patient appears to be euvolemic currently. Baseline is uncertain. Will resume patient's home Lasix and spironolactone but will monitor strict I&O's and Will repeat electrolyte panel this a.m.. Patient is on Chantix for smoking cessation. We do not have Chantix available from our pharmacy. Patient has been instructed that if she can have family members bring her Chantix and from home he can be ordered. Encourage patient to continue with her smoking cessation efforts. Will continue patient's home inhalers as needed. Patient has been admitted as observation status. Quality VTE Prophylaxis VTE prophylaxis: mechanical ordered (SCDs) Hospitalist MIPS Advance Care Plan I have confirmed that the patient's Advanced Care Plan is present, code status is documented, or surrogate decision maker is listed in patient medical record.: Yes Medication Reconciliation I have utilized all available resources to obtain, update and review the patients current medications (includes all prescriptions, OTC, herbals, cannabis, and nutritional supplements).: Yes
[2023-12-23] MEDS: MORPHINE SULFATE (*CRX) 2 MG/ML INJ IV PUSH ×2 (06:21→12:10)
[2023-12-23] MEDS: ASPIRIN 81 MG ENTERIC TABLET PO (08:31)
[2023-12-23] MEDS: SPIRONOLACTONE 50 MG TABLET 100 MG PO (08:31)
[2023-12-23] MEDS: ROSUVASTATIN 20 MG TABLET 40 MG PO (08:31)
[2023-12-23] MEDS: predniSONE 20 MG TABLET 40 MG PO (08:31)
[2023-12-23] MEDS: PANTOPRAZOLE 40 MG TABLET PO (08:31)
[2023-12-23] MEDS: CHOLECALCIFEROL 1,000 UNITS TABLET 1000 UNITS PO (08:32)
[2023-12-23] MEDS: HYDROXYCHLOROQUINE SULFATE 200 MG TABLET PO ×2 (08:32→22:06)
[2023-12-23] MEDS: FUROSEMIDE 20 MG TABLET PO (08:32)
[2023-12-23] MEDS: ACETAMINOPHEN 325 MG TABLET 650 MG PO ×2 (08:32→22:10)
[2023-12-23] MEDS: DOXYCYCLINE HYCLATE 100 MG TABLET PO ×2 (08:32→22:06)
[2023-12-23] MEDS: GABAPENTIN 100 MG CAPSULE PO ×2 (08:35→17:27)
[2023-12-23 09:08] LABS: Anion Gap 6 mmol/L (4-12); Blood Urea Nitrogen 20 mg/dL (7-17); Calcium 8.8 mg/dL (8.4-10.2); Carbon Dioxide 25 mmol/L (22-30); Chloride 103 mmol/L (98-107); Estimated CRCL calculation 68 ml/min; Estimated Glomerular Filt Rate 49; Glucose 104 mg/dL (65-110); Potassium 4.1 mmol/L (3.4-5.0); Sodium 134 mmol/L (137-145)
[2023-12-23] MEDS: LORazepam (*CRX) 0.5 MG TABLET PO (10:08)
--- NOTE | 2023-12-23 16:42 | WPDNEUROSGPN ---
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 MRI brain is negative. MRI cervical spine shows degenerative disc disease most pronounced at C5-6 with moderate central stenosis and without cord signal change. There is a T2-cord signal abnormality at C7-T1 that does not enhance with contrast. MRI thoracic spine does not show the previously-mentioned STIR signal abnormality, although there is motion artifact on this sequence. There is no abnormal enhancement at T9-10. There are small disc bulges at T8-9 and T9-10 that are not causing any significant spinal cord compression or cord signal change. I have reviewed her images extensively. While there are areas of stenosis in her cervical and lumbar spine, those are from chronic/degenerative processes and would not explain the acute-onset of her symptoms or the sensory level in her thoracic spine. They are also not significant enough to cause the severity of her symptoms, in my opinion. Additionally, she does not have any upper-extremity symptoms that would be expected if from cervical pathology. At this time, I continue to recommend Neurology evaluation. I suppose Guillain [place] could also be in the differential diagnosis, although she denies any recent infection or vaccination, and her issues do not appear to be spreading to the upper extremities or chest. I would continue to monitor bladder function for retention. She may work with PT/OT. Subjective Date/time seen: 12/23/23 16:42 Objective Data Vital Signs Vital Signs: Vital Signs - 24 hr 12/22/23 17:52 12/22/23 18:00 12/22/23 20:29 Temperature 98.3 F Pulse Rate 74 71 Respiratory Rate 16 18 Blood Pressure 159/102 H 165/78 H Pulse Oximetry 96 100 99 Oxygen Delivery 12/22/23 20:00 12/23/23 05:24 12/22/23 20:00 Temperature 98.2 F Pulse Rate 57 L 73 Respiratory Rate 18 Blood Pressure 111/74 Pulse Oximetry 99 Oxygen Delivery Room Air 12/23/23 00:00 12/23/23 04:00 12/23/23 08:00 Temperature Pulse Rate 69 64 71 Respiratory Rate Blood Pressure Pulse Oximetry Oxygen Delivery 12/23/23 08:30 12/23/23 15:45 Temperature 98.2 F Pulse Rate 66 Respiratory Rate 20 Blood Pressure 127/80 Pulse Oximetry 95 Oxygen Delivery Room Air Intake/Output Intake/Output: Intake & Output 12/20/23 12/21/23 12/22/23 12/23/23 23:59 23:59 23:59 23:59 Intake Total 1080 Balance 1080 Meds/Results Medications: Active Medications Generic Name Dose Route Start Last Admin Trade Name Freq PRN Reason Stop Dose Admin Acetaminophen 650 mg 12/22/23 21:01 12/23/23 08:32 Acetaminophen 325 Mg Tablet PO 650 mg Q4H PRN Administration Mild Pain (1-3) or Fever Hydrocodone Bitart/Acetaminophen 1 tab 12/22/23 21:01 12/22/23 21:11 Hydrocodone/Acetaminophen (*Crx) 5-325 Mg Tablet PO 1 tab Q6H PRN Administration Pain Rated 4-6 Albuterol 2 puff 12/23/23 05:07 Albuterol Sulfate (*Sp) Aerosol 1 Puff INHALATION Q4HRT PRN Shortness Of Breath Or Wheezing Aspirin 81 mg 12/23/23 09:00 12/23/23 08:31 Aspirin 81 Mg Enteric Tablet PO 81 mg DAILY ISI Administration Doxycycline Hyclate 100 mg 12/23/23 09:00 12/23/23 08:32 Doxycycline Hyclate 100 Mg Tablet PO 100 mg Q12HR ISI Administration Furosemide 20 mg 12/23/23 09:00 12/23/23 08:32 Furosemide 20 Mg Tablet PO 20 mg DAILY ISI Administration Gabapentin 300 mg 12/23/23 21:00 Gabapentin 300 Mg Capsule PO QHS ISI Gabapentin 100 mg 12/23/23 09:00 12/23/23 08:35 Gabapentin 100 Mg Capsule PO 100 mg BID ISI Administration Hydroxychloroquine Sulfate 200 mg 12/23/23 09:00 12/23/23 08:32 Hydroxychloroquine Sulfate 200 Mg Tablet PO 200 mg Q12HR ISI Administration Morphine Sulfate 2 mg 12/22/23 21:01 12/23/23 12:10 Morphine Sulfate (*Crx) 2 Mg/Ml Inj IV PUSH 2 mg Q4H PRN Administration Pain Rated 7-10 Pantoprazole Sodium 40 mg 12/23/23 09:00 12/23/23 08:31 Pantoprazole 40 Mg Tablet PO 40 mg DAILY ISI Administration Prednisone 40 mg 12/23/23 09:00 12/23/23 08:31 Prednisone 20 Mg Tablet PO 40 mg DAILY ISI Administration Rosuvastatin Calcium 40 mg 12/23/23 09:00 12/23/23 08:31 Rosuvastatin 20 Mg Tablet PO 40 mg DAILY ISI Administration Spironolactone 100 mg 12/23/23 09:00 12/23/23 08:31 Spironolactone 50 Mg Tablet PO 100 mg DAILY ISI Administration Vitamin D 1,000 units 12/23/23 09:00 12/23/23 08:32 Cholecalciferol 1,000 Units Tablet PO 1,000 units DAILY ISI Administration Radiology Results: ITS Impressions Chest X-Ray 12/22/23 11:24 IMPRESSION: 1. No acute cardiopulmonary disease. Brain MRI 12/23/23 13:03 IMPRESSION: 1. No acute intracranial process. No evidence of multiple sclerosis 2. No abnormal enhancement. Cervical Spine MRI 12/23/23 13:41 IMPRESSION: 1. Very small T2 hyperintense signal focus seen in the colon opposite C7 which may be a plaque. Follow-up advised. 2. Multilevel degenerative disc disease with variable degrees of spinal canal stenosis, intervertebral foraminal narrowing and the root compression. 3. No abnormal enhancing lesions seen. Thoracic Spine MRI 12/23/23 14:02 IMPRESSION: No definite abnormality seen with no definite enhancing lesions. Labs Labs: Laboratory Results - last 24 hr 12/23/23 08:50 Sodium 134 L Potassium 4.1 Chloride 103 Carbon Dioxide 25 Anion Gap 6 BUN 20 H Creatinine 1.20 H Estim Creat Clear Calc 68 Estimated GFR 49 L Glucose 104 Calcium 8.8
--- NOTE | 2023-12-23 18:21 | P.CONNEU_ITS ---
Assessment and Plan Assessment and plan (1) Acute transverse myelitis: Code(s): G37.3 - Acute transverse myelitis in demyelinating disease of central nervous system Status: Acute (2) Obstructive sleep apnea: Code(s): G47.33 - Obstructive sleep apnea (adult) (pediatric) Status: Acute Plan The patient has a weakness in both lower limbs which appears significant and she has sensory loss with level at around T9 on both sides. There is an area of encephalomalacia in this region in the MRI of the thoracic spine done yesterday however today the MRI done today has some motion artifact and was difficult to discern. I had called of the radiologist and discussed with him in detail about all the MRI findings. I have suggested MRI of the brain, cervical and thoracic spine with and without contrast with MS protocol. These did not show any significant abnormality. There was some questionable finding at C7 level. The MRI of lumbar spine was performed at [facility] and I do not have the report of that but I reviewed that with the radiologist were talk to felt that there is a cyst on the nerve most likely at a L5-S1 level on the right side and I agree with the same. This of course alone is unable to cause all the things we are looking at. Rectal exam is also performed did not show any loss of rectal tone although she is unable to squeeze because he see that she cannot feel anything. However she cannot feel anything below T9 area. I had discussion with Dr. Thapa about this and I would suggest consider transfer to a tertiary care given her young age and the fact that she has lupus, a rheumatoid arthritis, chronic kidney disease to complicate the matters. treatment options can also vary depending upon further analysis of the findings. The differential diagnosis of the condition may include vasculitis, GBS and NMO disease or a multiple sclerosis variant. Spinal tap to include antibodies for NMO, acquaporin, MOG and oligoclonal band, myelin basic protein would be necessary however it is not available till the Interventional Radiology can get to tomorrow and hence we can start her on steroids with methylprednisolone 250 mg 4 times a day or 1 g a day this should be given with the some cardiac monitoring since that time stay cardia or cardiac arrhythmias can occur. Blood sugar and blood pressure need to monitor. If she does get accepted and tertiary care center a young age and complicated concurrent medical problems that would be a good option and I understand that sometimes it is hard to get bed in tertiary care but spoke to them along with Dr. Thapa explaining the situation. Consult date: 12/23/23 HPI: Ana Ferrell is a 43 year old female With history of difficulty in walking and numbness in her lower limbs that have gradually progressed over the last 2-3 weeks time. She also cannot feel voiding now has a catheter in place. She states that she cannot feel her legs and cannot walk. She does have history of lupus and rheumatoid arthritis and chronic kidney disease. She has been under pain management at [facility] on the last time she had a injection in mid October this year. She states that this did not help resolve her pain. She follows with a clinical business manager in [place]. Current medications were reviewed. No history of any fall or trauma or any other recent illness. No difficulty swallowing. No diplopia. No visual symptoms. Upon asking she states that she has occasional numbness in hands occasional blurring of the eyes but no specific symptoms. She is able to function normally until her symptoms started 3 weeks ago. Now she is completely unable to walk. Review of Systems Review of Systems: All systems reviewed & are unremarkable except as noted in HPI and below PMFSH Past Medical History Medical History (Updated 12/23/23 @ 18:26 by Joshua Montero MD) Acute transverse myelitis Asthma Cutaneous lupus erythematosus Degenerative disc disease Essential hypertension GERD (gastroesophageal reflux disease) Hyperlipidemia Migraine Obstructive sleep apnea Intermittent compliance Rheumatoid arthritis Surgical History Surgical History History of (2001) History of cardiac catheterization No stents Hx of cholecystectomy (~12/2022) Family History Family History Mother , in her early 70s DVT (deep venous thrombosis) Rheumatoid arthritis Cerebrovascular accident Thyroid disease Father , in his late 60s of complications of cystectomy Bladder cancer Diabetes mellitus Rheumatoid arthritis Sibling SLE (systemic lupus erythematosus related syndrome) Thyroid disease Sibling Gunshot wound Social History Social History Social History: She lives with her ex-. They are now back in a committed relationship and are engaged for the last 5 years. She has a daughter who is 22 years old. She has a 2-year-old grandchild and a 3-month-old grandchild. She has smoked on average 0.5 packs of cigarettes per day since she was 14 years old. She rarely drinks alcohol. She smokes marijuana on a frequent basis to help with pain control. She denies other illicit substance use. Code status: Full code Surrogate decision maker: Naldo Ferrell (fiance) Smoking packs per day: 0.5 Smoking cigarettes per day: 10.0 Years smoked: 39 Smoking pack-years: 19.50 Smoking status: Current every day smoker Tobacco type: cigarettes Alcohol intake: current Drinks per week: 1 Substance use: current Substance use type: marijuana Other substance usage details: daily Last use: 12/22/23 Do You Feel Safe in your Home?: Yes Lack of Transportation: No Lack of Food: Never True Current Housing: I Have Housing Concerned About Future Housing: No Difficulty Paying Gas/Electric Bills: No Difficulty Paying for Meds: No Currently Unemployed: No Education: Associate Degree Difficulty w/ Childcare or Family Care: No Spiritual care concerns: No Meds Home Medications and Allergies Home Medications Medication Instructions Recorded Confirmed Type adalimumab 40 mg/0.4 mL 40 mg subcut [id number] 12/22/23 History subcutaneous pen kit (Humira(CF) Pen) albuterol sulfate 90 mcg/actuation 2 inh inhalation Q4H PRN Shortness 12/22/23 12/22/23 History aerosol inhaler Of Breath Or Wheezing aspirin 81 mg tablet,delayed 81 mg PO DAILY 12/22/23 12/22/23 History release (Fred Low Dose Aspirin) clindamycin phosphate 1 % lotion 1 applic topical DAILY PRN Skin 12/22/23 12/22/23 History Irritation doxycycline monohydrate 100 mg 100 mg PO BID 12/22/23 12/22/23 History capsule furosemide 20 mg tablet 20 mg PO DAILY 12/22/23 12/22/23 History hydroxychloroquine 200 mg tablet 200 mg PO BID 12/22/23 12/22/23 History ketoconazole 2 % topical cream 1 applic topical BID PRN Skin 12/22/23 12/22/23 History Irritation pantoprazole 40 mg tablet,delayed 40 mg PO DAILY 12/22/23 12/22/23 History release prednisone 20 mg tablet 40 mg PO DAILY 12/22/23 12/22/23 History rosuvastatin 40 mg tablet 40 mg PO DAILY 12/22/23 12/22/23 History spironolactone 100 mg tablet 100 mg PO DAILY 12/22/23 12/22/23 History triamcinolone acetonide 0.1 % 1 applic topical BID PRN Skin 12/22/23 12/22/23 History topical cream Irritation varenicline 1 mg tablet 1 mg PO DAILY 12/22/23 12/22/23 History gabapentin 100 mg capsule 100 mg PO BID 12/23/23 12/23/23 History gabapentin 300 mg capsule 300 mg PO QHS 12/23/23 12/23/23 History Allergies Allergy/AdvReac Type Severity Reaction Status Date / Time No Known Drug Allergies Allergy Mild Verified 06/21/09 19:23 Vital Signs Vital Signs - 24 hr 12/22/23 20:29 12/22/23 20:00 12/23/23 05:24 Temperature 36.8 C 36.8 C Pulse Rate 71 57 L Respiratory Rate 18 18 Blood Pressure 165/78 H 111/74 Pulse Oximetry 99 99 Oxygen Delivery Room Air 12/22/23 20:00 12/23/23 00:00 12/23/23 04:00 Temperature Pulse Rate 73 69 64 Respiratory Rate Blood Pressure Pulse Oximetry Oxygen Delivery 12/23/23 08:00 12/23/23 08:30 12/23/23 15:45 Temperature 36.8 C Pulse Rate 71 66 Respiratory Rate 20 Blood Pressure 127/80 Pulse Oximetry 95 Oxygen Delivery Room Air Exam Narrative: Fully conscious alert, the time place and person, no aphasia or dysarthria Head and neck no evidence of external trauma, no carotid bruit, neck flexors and extensors show normal strength. Cranial nerves pupils were equal reacting to light. Visual mckeon and extraocular movements are intact. There is no facial asymmetry. Tongue was midline. Face sensation intact. Other cranial nerves within normal limits. Motor system normal power in both upper limbs however she is unable to go against gravity or even sideways with her lower limbs power grade 1/4 in both lower limbs deep tendon reflexes in the at the knees and ankles with absent were in the upper limbs were 2/4 at biceps and triceps. Sensory examination revealed a sensory level at T8 -9 to touch pin and temperature and vibration. No involuntary movements are seen. Results Labs 12/22/23 10:16 12/23/23 08:50 Labs: BMP 12/23/23 08:50 Sodium 134 L Potassium 4.1 Chloride 103 Carbon Dioxide 25 BUN 20 H Creatinine 1.20 H Glucose 104 Calcium 8.8
[2023-12-23] MEDS: methylPREDNISolone SOD SUCC 125 MG VIAL 250 MG IV PUSH (18:34)
--- NOTE | 2023-12-23 19:32 | CY_PTH ---
PATIENT: Ana Ferrell LOC: [id number] U#:[id number] AGE/SX: 43/F ROOM: 300 RE12/24/[address]: Alanis Cavazos MD : 1980 BED: 01 DIS: 12/29/2023 SPEC #: [id number] RECD: 12/26/23 07:17 STATUS: SAHIL REQ #: [id number] TG: 12/23/23 19:[address]: Alanis Cavazos DEPT: [facility] Cytology RECD BY: Seda Gonsales ENTERED: 12/26/23 07:17 SP TYPE: Cytology OTHR DR: Demetrio Zuniga, MD Joshua Paul MD Sarah S. Travers, MD Tissues: A - CSF Procedures: Cytopathology Cytospin
[2023-12-23] MEDS: HYDROcodone/acetaminophen (*CRX) 5-325 MG TABLET 1 TAB PO (19:52)
--- NOTE | 2023-12-23 20:59 | PM.EVENT ---
Event Note Event Note Event Note: Discussed case with Dr. Montero. Suspect acute transverse myelitis. Patient has been accepted by neurology at [facility]. She is established with them she sees a pain doctor and purchasing clerk there. Neurologist at [facility] agreed with pulse dose steroids for now and to monitor for improvement. Lumbar puncture pending. CSF in serum studies entered. PT OT ordered. SCDs only. Start pharmacological prophylaxis post lumbar puncture. Discussed suspicions in length with the patient and her . Discussed risks versus benefits of procedure/medications. They were satisfied with the discussion and are in agreement with the plan. Full code.
[2023-12-23] MEDS: GABAPENTIN 300 MG CAPSULE PO (22:06)
[2023-12-23 22:08] LABS: Glucose Point of Care 139 mg/dl (65-105)
[2023-12-23 22:36] LABS: Glucose CSF 74 mg/dL (40-70); Total Protein CSF 43 mg/dL (12-60)
[2023-12-23 22:45] LABS: Appearance CSF Clear (Clear); CSF source CSF; Color CSF Colorless (Colorless)
[2023-12-23 23:07] LABS: Influenza A QL RT-PCR Negative (Negative); Influenza B QL RT-PCR Negative (Negative); RSV RNA, RT-PCR Negative (Negative); SARS-CoV-2 RNA PCR Negative (Negative)
--- NOTE | 2023-12-23 23:27 | PC.NURSE ---
I reviewed the License Pending RN's documentation and agree with the findings of [place].
[2023-12-24] VITALS (9 sets, daily range): BP systolic 128–152; BP diastolic 74–81; PULSE 45–72; RESP 16–18; TEMP 36.6–36.9; O2SAT 94–98
[2023-12-24 00:12] LABS: Nucleated Cell CSF 1 /uL (0-5)
[2023-12-24 00:13] LABS: Red Blood Cell CSF 1.5 (0-2)
[2023-12-24 00:14] LABS: Lymphocytes CSF 90 % (40-80); Neutrophils CSF 10 % (0-6)
[2023-12-24] MEDS: methylPREDNISolone SOD SUCC 125 MG VIAL 250 MG IV PUSH ×5 (00:14→23:24)
[2023-12-24 05:48] LABS: Basophils Percent Auto 0.1 % (0.2-1.2); Hematocrit 44.3 % (37.0-47.0); Hemoglobin 14.9 g/dL (12.0-15.0); Immature Granulocyte Absolute 0.08 K/mm3 (0.00-0.031); Immature Granulocyte Percent A 0.7 % (0-0.5); Lymphocytes Absolute Auto 0.67 K/mm3 (0.9-3.2); Lymphocytes Percent Auto 5.5 % (18.3-44.2); Mean Corpuscular HGB Conc 33.6 g/dl (32-36); Mean Corpuscular Hemoglobin 32.3 pg (26-34); Mean Corpuscular Volume 96.1 fl (80-100); Mean Platelet Volume 10.6 fl (7.4-10.4); Monocytes Absolute Auto 0.1 K/mm3 (0.1-0.6); Monocytes Percent Auto 0.5 % (2.6-8.5); Neutrophils Absolute Auto 11.4 K/mm3 (1.3-6.7); Neutrophils Percent Auto 93.2 % (45.5-73.1); Platelet Count Result 192 k/mm3 (150-375); Red Blood Count 4.61 M/mm3 (4.2-5.4); Red Cell Distribution Width 12.6 % (11.5-14.5); White Blood Count 12.2 K/mm3 (4.5-10.0)
[2023-12-24 05:55] LABS: Anion Gap 8 mmol/L (4-12); Blood Urea Nitrogen 18 mg/dL (7-17); Calcium 9.2 mg/dL (8.4-10.2); Carbon Dioxide 23 mmol/L (22-30); Chloride 102 mmol/L (98-107); Estimated CRCL calculation 90 ml/min; Estimated Glomerular Filt Rate > 60; Glucose 130 mg/dL (65-110); Magnesium 2.1 mg/dL (1.6-2.3); Potassium 4.3 mmol/L (3.4-5.0); Sodium 133 mmol/L (137-145)
[2023-12-24 05:57] LABS: Rheumatoid Factor < 12.0 IU/ML (<12)
[2023-12-24 05:58] LABS: CRP < 0.5 mg/dL (<1.0)
[2023-12-24 06:02] LABS: COMPLEMENT C4 28.7 mg/dL (14.0-44.0)
[2023-12-24 06:15] LABS: Procalcitonin 0.1 ng/mL
[2023-12-24 06:26] LABS: Erythrocyte Sedimentation Rate 15 mm/hr (0-20)
[2023-12-24 06:37] LABS: HIV 1/2 Ab P24 Ag Result Negative (Negative)
[2023-12-24 07:01] LABS: Folic Acid 5.6 ng/mL (2.76->20)
[2023-12-24] MEDS: ACETAMINOPHEN 325 MG TABLET 650 MG PO ×2 (08:10→14:28)
[2023-12-24] MEDS: ROSUVASTATIN 20 MG TABLET 40 MG PO (08:10)
[2023-12-24] MEDS: PANTOPRAZOLE 40 MG TABLET PO (08:11)
[2023-12-24] MEDS: FUROSEMIDE 20 MG TABLET PO (08:11)
[2023-12-24] MEDS: SPIRONOLACTONE 50 MG TABLET 100 MG PO (08:11)
[2023-12-24] MEDS: GABAPENTIN 100 MG CAPSULE PO ×2 (08:11→17:00)
[2023-12-24] MEDS: DOXYCYCLINE HYCLATE 100 MG TABLET PO ×2 (08:11→20:46)
[2023-12-24] MEDS: HYDROXYCHLOROQUINE SULFATE 200 MG TABLET PO ×2 (08:11→20:47)
[2023-12-24] MEDS: CHOLECALCIFEROL 1,000 UNITS TABLET 1000 UNITS PO (08:11)
[2023-12-24 08:47] LABS: Glucose Point of Care 123 mg/dl (65-105)
--- NOTE | 2023-12-24 09:28 | PM.IMPN ---
Progress Note: A&P Assessment and Plan (1) Acute transverse myelitis: Code(s): G37.3 - Acute transverse myelitis in demyelinating disease of central nervous system Status: Acute (2) Acute on chronic back pain: Code(s): M54.9 - Dorsalgia, unspecified; G89.29 - Other chronic pain Status: Acute (3) Obstructive sleep apnea: Code(s): G47.33 - Obstructive sleep apnea (adult) (pediatric) Status: Acute (4) Myelomalacia: Code(s): G95.89 - Other specified diseases of spinal cord Status: Acute (5) Bilateral leg weakness: Code(s): R29.898 - Other symptoms and signs involving the musculoskeletal system Status: Acute Plan This is a 43-year-old female with past medical history migraines, morbid obesity, hyperlipidemia, hypertension, asthma, obstructive sleep apnea, CKD stage 3a, chronic back pain/degenerative disc disease rheumatoid arthritis, cutaneous lupus, hidradenitis suppurativa, GERD who presents to [place] [facility] complaining of progressive leg numbness and weakness. She has had chronic back pain that is worse than usual for the past few weeks. Is pulling in nature 11/15. It shoots up from her lower back to her thoracic spine. Also radiates down the legs. In the middle of October she had an epidural steroid injection. She sees Rheumatology and Pain Management at [facility]. She reports since the end of November she had numbness down her right hip and lower extremity. Than weakness began. Five days prior to admission she had weakness and loss of sensation in her left leg as well. Reports lack of sensation from the umbilicus down. Five days prior she presented to [facility] but there is a 4 hour wait so she left and went to [place]. There a lumbar spine MRI was performed she was subsequently septic home on prednisone for a short course and that helped her pain but her weakness and decreased sensation has persisted. She also has not been able to feel sensation to urinate. She had not had bowel incontinence. Denies acute back injury. She has not traveled. 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 She has not had fever/chills/shortness of breath/cough/chest pain/vomiting/body aches. No sick contacts. She got in contact with [place] [facility] and was then advised to present to [place] [facility] to be admitted under the hospitalist service on 12/22/2023. Acute transverse myelitis -MR lumbar spine obtained from outside facility, currently unable to pull up the image however neurology and Neurosurgery have extensively reviewed and report fairly significant degenerative disc disease at L1-2, L2-3, L3-4 the epidural lipomatosis lumbar spine, mild central stenosis at L2-3, mild to moderate central stenosis at L3-4. MR thoracic spine on 12/22/2023 demonstrates mild thoracic spondylosis and myelomalacia at T9-T10. Subsequent MR thoracic and cervical spine with contrast reveals a very small T2 hyperintense signal focus seen opposite C7, multilevel degenerative disc disease with variable degrees of spinal canal stenosis, intervertebral foraminal narrowing and root compression. No enhancing lesion seen. Previous myelomalacia at T9-T10 not visualized however her symptoms relate with transverse myelitis at T8-T9. -continue to appreciate neurology and neurosurgical recommendations. -available serum and CSF studies reviewed. -quad viral screen negative on 12/23/2023 -no change in lower extremity weakness or loss of sensation, continue to monitor for improvement. -accepted to [facility] on 12/23/23 -continue Solu-Medrol 250 mg IV q.6 hours started on 12/23/2023 -monitor blood pressure and Accu-Cheks while on pulse dose steroids Leukocytosis -procalcitonin normal. Continue to trend Chronic essential hypertension -at goal -continue NURSING PROGRAM COORDINATOR furosemide, spironolactone CKD stage IIIA -stable. Continue to trend daily renal function Hyperlipidemia -continue NURSING PROGRAM COORDINATOR rosuvastatin 40 mg p.o. q.day JEAN PIERRE -continue CPAP at night Morbid obesity Chronic back pain Degenerative spine disease -continue NURSING PROGRAM COORDINATOR gabapentin -counseling provided -pulse dose steroids as above Rheumatoid arthritis, cutaneous lupus -continue NURSING PROGRAM COORDINATOR hydroxychloroquine 200 mg p.o. b.i.d. -no active symptoms Hidradenitis -continue NURSING PROGRAM COORDINATOR doxycycline 100 mg p.o. b.i.d. -no active abscess GERD -continue NURSING PROGRAM COORDINATOR Protonix 40 mg p.o. q.day F/E/N: saline lock IV, replace lytes as needed, cardiac diet GI prophylaxis: Continue NURSING PROGRAM COORDINATOR Protonix DVT prophylaxis: Heparin subQ 5000 units t.i.d. Bowel regimen: Monitor Lines: Mendoza catheter placed on admission 12/23/2023, peripheral IV Precautions: Fall precautions Code Status: Patient wishes to be full code Dispo: Pending transfer to [facility] -Living arrangements, functional status, significant history: Lives at home with spouse Note to the patient: The Century Cures Act makes medical notes like these available to patients in the interest of transparency. Please be advised this is a medical document. It is intended for [id number] communication. It is written in medical language and may contain unfamiliar abbreviations or verbiage. Components may appear blunt or direct. Medical documents are intended to carry relevant information, facts as evident, and the clinical opinion of the practitioner at the time of the encounter. This note was generated by a speech recognition system and may contain inherent errors or omissions not intended by the user. Grammatical errors, random word insertions, deletions, pronoun errors and incomplete sentences are occasional consequences of this technology due to software limitations. Not all errors are caught or corrected. If there are questions or concerns about the content of this note or information contained within the body of this dictation they should be addressed directly with author for clarification. The file time of this note does not necessarily represent the time the patient was seen. Subjective Date/time seen: 12/24/23 09:28 Interval history: No acute overnight events. at bedside again. Patient reports a headache when she woke up it is mild. She reports pain in the lower back when she lies flat. Her lack of sensation and weakness is unchanged from the day prior. Review of Systems Review of Systems: All systems reviewed & are unremarkable except as noted in HPI and below (Subjective) Exam Const: General: comfortable and no acute distress Other: Obese. HENMT: Mouth: Yes moist mucous membranes Other: Crowded oropharynx, Mallampati 3-4 Eyes: Pupils: Equal, round and reactive pupils present Neck: Neck: supple Resp: Effort & Inspection: normal respiratory effort Auscultation: clear to auscultation bilaterally Cardio: Rate: regular rate Rhythm: regular rhythm Heart sounds: no gallops, no murmurs and no rubs GI: GI Palp: Yes Soft to palpation and No Tenderness to palpation present (GI) Urinary Catheter: Urinary Catheter: patent and draining Neuro: Other: Starting from an inch above her umbilicus in circumferential fashion, no sensation to light touch or pain all the way down to the toes. Lack of motor function from the hips down. Extrem: General: no edema Objective Data Vital Signs Vital Signs: Vital Signs - 24 hr 12/23/23 15:45 12/23/23 16:00 12/23/23 20:41 Temperature 98.2 F 98.2 F Pulse Rate 66 64 75 Respiratory Rate 20 18 Blood Pressure 127/80 134/80 Pulse Oximetry 95 99 Oxygen Delivery 12/23/23 22:02 12/23/23 23:00 12/24/23 00:00 Temperature Pulse Rate 66 66 56 L Respiratory Rate 18 Blood Pressure 121/63 Pulse Oximetry 94 95 Oxygen Delivery CPAP 12/24/23 04:00 12/24/23 05:34 12/24/23 08:10 Temperature 97.8 F Pulse Rate 45 L 57 L Respiratory Rate 18 Blood Pressure 128/79 Pulse Oximetry 98 Oxygen Delivery Room Air Intake/Output Intake/Output: Intake & Output 12/21/23 12/22/23 12/23/23 12/24/23 23:59 23:59 23:59 23:59 Intake Total 1080 220 Output Total 1000 950 Balance 80 -730 Meds/Results Medications: Active Medications Generic Name Dose Route Start Last Admin Trade Name Freq PRN Reason Stop Dose Admin Acetaminophen 650 mg 12/22/23 21:01 12/24/23 08:10 Acetaminophen 325 Mg Tablet PO 650 mg Q4H PRN Administration Mild Pain (1-3) or Fever Hydrocodone Bitart/Acetaminophen 1 tab 12/22/23 21:01 12/23/23 19:52 Hydrocodone/Acetaminophen (*Crx) 5-325 Mg Tablet PO 1 tab Q6H PRN Administration Pain Rated 4-6 Albuterol 2 puff 12/23/23 05:07 Albuterol Sulfate (*Sp) Aerosol 1 Puff INHALATION Q4HRT PRN Shortness Of Breath Or Wheezing Aspirin 81 mg 12/23/23 09:00 12/23/23 08:31 Aspirin 81 Mg Enteric Tablet PO 81 mg DAILY ISI Administration Dextrose 12.5 gm 12/23/23 19:14 Dextrose 50% 25 Gm/50 Ml Syringe IV PUSH PRN PRN Hypoglycemia Protocol Doxycycline Hyclate 100 mg 12/23/23 09:00 08/17/24 08:11 Doxycycline Hyclate 100 Mg Tablet PO 100 mg Q12HR ISI Administration Furosemide 20 mg 12/23/23 09:00 12/24/23 08:11 Furosemide 20 Mg Tablet PO 20 mg DAILY ISI Administration Gabapentin 300 mg 12/23/23 21:00 12/23/23 22:06 Gabapentin 300 Mg Capsule PO 300 mg QHS ISI Administration Gabapentin 100 mg 12/23/23 09:00 12/24/23 08:11 Gabapentin 100 Mg Capsule PO 100 mg BID ISI Administration Glucagon 1 mg 12/23/23 19:14 Glucagon For Inj 1 Mg Vial IM PRN PRN Hypoglycemia Protocol Glucose 15 gm 12/23/23 19:14 Glucose Oral Gel 15 Gm Of Glucse In 37.5 Gm Tube PO PRN PRN Hypoglycemia Protocol Heparin Sodium (Porcine) 5,000 units 12/24/23 14:00 Heparin Sodium 5,000 Units/Ml Vial SUB-Q Q8HR [facility] Hydroxychloroquine Sulfate 200 mg 12/23/23 09:00 12/24/23 08:11 Hydroxychloroquine Sulfate 200 Mg Tablet PO 200 mg Q12HR ISI Administration Dextrose 1,000 mls @ 100 mls/hr 12/23/23 19:14 Dextrose 5% 1,000 Ml IVPB PRN PRN Hypoglycemia Protocol Insulin Aspart 2 - 5 units 12/24/23 08:00 12/24/23 08:07 Insulin Aspart (*Bkc) 100 Units/Ml SUB-Q Not Given TIDWM [facility] Protocol Insulin Aspart 1 - 2 units 12/23/23 21:00 12/23/23 22:06 Insulin Aspart (*Bkc) 100 Units/Ml SUB-Q Not Given HS [facility] Protocol Methylprednisolone Sodium Succinate 250 mg 12/23/23 17:30 12/24/23 05:35 Methylprednisolone Sod Succ 125 Mg Vial IV PUSH 250 mg Q6HR ISI Administration Morphine Sulfate 2 mg 12/22/23 21:01 12/23/23 12:10 Morphine Sulfate (*Crx) 2 Mg/Ml Inj IV PUSH 2 mg Q4H PRN Administration Pain Rated 7-10 Ondansetron HCl 4 mg 12/24/23 09:26 Ondansetron Inj 4 Mg/2 Ml Vial IV PUSH Q4H PRN Nausea And Vomiting Pantoprazole Sodium 40 mg 12/23/23 09:00 12/24/23 08:11 Pantoprazole 40 Mg Tablet PO 40 mg DAILY ISI Administration Rosuvastatin Calcium 40 mg 12/23/23 09:00 12/24/23 08:10 Rosuvastatin 20 Mg Tablet PO 40 mg DAILY ISI Administration Spironolactone 100 mg 12/23/23 09:00 12/24/23 08:11 Spironolactone 50 Mg Tablet PO 100 mg DAILY ISI Administration Vitamin D 1,000 units 12/23/23 09:00 12/24/23 08:11 Cholecalciferol 1,000 Units Tablet PO 1,000 units DAILY ISI Administration Radiology Results: ITS Impressions Chest X-Ray 12/22/23 11:24 IMPRESSION: 1. No acute cardiopulmonary disease. Brain MRI 12/23/23 13:03 IMPRESSION: 1. No acute intracranial process. No evidence of multiple sclerosis 2. No abnormal enhancement. Cervical Spine MRI 12/23/23 13:41 IMPRESSION: 1. Very small T2 hyperintense signal focus seen in the colon opposite C7 which may be a plaque. Follow-up advised. 2. Multilevel degenerative disc disease with variable degrees of spinal canal stenosis, intervertebral foraminal narrowing and the root compression. 3. No abnormal enhancing lesions seen. Thoracic Spine MRI 12/23/23 14:02 IMPRESSION: No definite abnormality seen with no definite enhancing lesions. Lumbar Puncture Fluoroscopy 12/23/23 22:20 IMPRESSION: 1. Successful fluoro-guided lumbar puncture with normal opening pressure of 19 cm water. Labs Labs: Laboratory Results - last 24 hr 12/23/23 12/23/23 12/23/23 21:28 21:33 22:05 WBC RBC Hgb Hct MCV MCH MCHC RDW Plt Count MPV Immature Gran % (Auto) Neut % (Auto) Lymph % (Auto) [place] % (Auto) Eos % (Auto) Baso % (Auto) Lymph # (Auto) [place] # (Auto) Eos # (Auto) Baso # (Auto) Abs Immat Gran (auto) Absolute Neuts (auto) Absolute Nucleated RBC Nucleated RBC % ESR Sodium Potassium Chloride Carbon Dioxide Anion Gap BUN Creatinine Estim Creat Clear Calc Estimated GFR Glucose POC Capillary Glucose 139 H Calcium Magnesium C-Reactive Protein Vitamin B12 Folate Procalcitonin CSF Source Csf CSF Appearance Clear CSF Color Colorless CSF RBC 1.5 CSF Tot Nucleated Cells 1 CSF Neutrophils 10 H CSF Lymphocytes 90 H CSF Glucose 74 H CSF Total Protein 43 Rheumatoid Factor Complement C4 HIV 1&2 Ab/P24 Ag 4thGn Influenza A (RT-PCR) Influenza B (RT-PCR) RSV (RT-PCR) SARS-CoV-2 RNA (RT-PCR) 12/23/23 12/24/23 12/24/23 22:24 05:22 05:23 WBC 12.2 H RBC 4.61 Hgb 14.9 Hct 44.3 MCV 96.1 MCH 32.3 MCHC 33.6 RDW 12.6 Plt Count 192 MPV 10.6 H Immature Gran % (Auto) 0.7 H Neut % (Auto) 93.2 H Lymph % (Auto) 5.5 L [place] % (Auto) 0.5 L Eos % (Auto) 0.0 Baso % (Auto) 0.1 L Lymph # (Auto) 0.67 L [place] # (Auto) 0.1 Eos # (Auto) 0.0 Baso # (Auto) 0.0 Abs Immat Gran (auto) 0.08 H Absolute Neuts (auto) 11.4 H Absolute Nucleated RBC 0.000 Nucleated RBC % 0.0 ESR 15 Sodium 133 L Potassium 4.3 Chloride 102 Carbon Dioxide 23 Anion Gap 8 BUN 18 H Creatinine 0.90 Estim Creat Clear Calc 90 Estimated GFR > 60 Glucose 130 H POC Capillary Glucose Calcium 9.2 Magnesium 2.1 C-Reactive Protein < 0.5 Vitamin B12 472.0 Folate 5.6 Procalcitonin CSF Source CSF Appearance CSF Color CSF RBC CSF Tot Nucleated Cells CSF Neutrophils CSF Lymphocytes CSF Glucose CSF Total Protein Rheumatoid Factor < 12.0 Complement C4 28.7 HIV 1&2 Ab/P24 Ag 4thGn Negative Influenza A (RT-PCR) Negative Influenza B (RT-PCR) Negative RSV (RT-PCR) Negative SARS-CoV-2 RNA (RT-PCR) Negative 12/24/23 12/24/23 05:24 08:27 WBC RBC Hgb Hct MCV MCH MCHC RDW Plt Count MPV Immature Gran % (Auto) Neut % (Auto) Lymph % (Auto) [place] % (Auto) Eos % (Auto) Baso % (Auto) Lymph # (Auto) [place] # (Auto) Eos # (Auto) Baso # (Auto) Abs Immat Gran (auto) Absolute Neuts (auto) Absolute Nucleated RBC Nucleated RBC % ESR Sodium Potassium Chloride Carbon Dioxide Anion Gap BUN Creatinine Estim Creat Clear Calc Estimated GFR Glucose POC Capillary Glucose 123 H Calcium Magnesium C-Reactive Protein Vitamin B12 Folate Procalcitonin 0.1 CSF Source CSF Appearance CSF Color CSF RBC CSF Tot Nucleated Cells CSF Neutrophils CSF Lymphocytes CSF Glucose CSF Total Protein Rheumatoid Factor Complement C4 HIV 1&2 Ab/P24 Ag 4thGn Influenza A (RT-PCR) Influenza B (RT-PCR) RSV (RT-PCR) SARS-CoV-2 RNA (RT-PCR)
[2023-12-24 11:52] LABS: Glucose Point of Care 159 mg/dl (65-105)
[2023-12-24] MEDS: HYDROcodone/acetaminophen (*CRX) 5-325 MG TABLET 1 TAB PO (12:07)
[2023-12-24] MEDS: HEPARIN SODIUM 5,000 UNITS/ML VIAL 5000 UNITS SUB-Q ×2 (14:27→22:20)
[2023-12-24 16:55] LABS: Glucose Point of Care 146 mg/dl (65-105)
[2023-12-24] MEDS: MORPHINE SULFATE (*CRX) 2 MG/ML INJ IV PUSH (17:01)
[2023-12-24 20:31] LABS: Glucose Point of Care 132 mg/dl (65-105)
[2023-12-24] MEDS: GABAPENTIN 300 MG CAPSULE PO (20:47)
[2023-12-25] VITALS (9 sets, daily range): BP systolic 133–153; BP diastolic 69–70; PULSE 52–78; RESP 16–18; TEMP 36.8–36.9; O2SAT 100
[2023-12-25] MEDS: HEPARIN SODIUM 5,000 UNITS/ML VIAL 5000 UNITS SUB-Q ×3 (05:48→21:51)
[2023-12-25] MEDS: methylPREDNISolone SOD SUCC 125 MG VIAL 250 MG IV PUSH ×3 (05:48→17:59)
[2023-12-25 06:39] LABS: Basophils Percent Auto 0.1 % (0.2-1.2); Hematocrit 43.3 % (37.0-47.0); Hemoglobin 14.5 g/dL (12.0-15.0); Immature Granulocyte Percent A 0.6 % (0-0.5); Lymphocytes Percent Auto 4.8 % (18.3-44.2); Mean Corpuscular HGB Conc 33.5 g/dl (32-36); Mean Corpuscular Hemoglobin 32.1 pg (26-34); Mean Corpuscular Volume 95.8 fl (80-100); Mean Platelet Volume 11.2 fl (7.4-10.4); Monocytes Absolute Auto 0.4 K/mm3 (0.1-0.6); Monocytes Percent Auto 2.3 % (2.6-8.5); Neutrophils Absolute Auto 15.3 K/mm3 (1.3-6.7); Neutrophils Percent Auto 92.2 % (45.5-73.1); Platelet Count Result 181 k/mm3 (150-375); Red Blood Count 4.52 M/mm3 (4.2-5.4); White Blood Count 16.6 K/mm3 (4.5-10.0)
[2023-12-25 06:58] LABS: Alanine Aminotransferase 17 U/L (6-35); Albumin Level 3.5 g/dL (3.5-5.1); Alkaline Phosphatase 127 U/L (38-126); Anion Gap 9 mmol/L (4-12); Aspartate Amino Transferase 16 U/L (14-36); Bilirubin,Total 0.5 mg/dL (0.2-1.3); Blood Urea Nitrogen 19 mg/dL (7-17); Carbon Dioxide 25 mmol/L (22-30); Chloride 100 mmol/L (98-107); Estimated CRCL calculation 81 ml/min; Estimated Glomerular Filt Rate 60; Glucose 125 mg/dL (65-110); Magnesium 2.2 mg/dL (1.6-2.3); Potassium 4.5 mmol/L (3.4-5.0); Sodium 134 mmol/L (137-145)
[2023-12-25 07:10] LABS: Procalcitonin 0.1 ng/mL
[2023-12-25 08:10] LABS: Glucose Point of Care 124 mg/dl (65-105)
[2023-12-25] MEDS: CHOLECALCIFEROL 1,000 UNITS TABLET 1000 UNITS PO (08:47)
[2023-12-25] MEDS: SPIRONOLACTONE 50 MG TABLET 100 MG PO (08:47)
[2023-12-25] MEDS: DOXYCYCLINE HYCLATE 100 MG TABLET PO ×2 (08:47→21:50)
[2023-12-25] MEDS: FUROSEMIDE 20 MG TABLET PO (08:47)
[2023-12-25] MEDS: ROSUVASTATIN 20 MG TABLET 40 MG PO (08:47)
[2023-12-25] MEDS: GABAPENTIN 100 MG CAPSULE PO ×2 (08:47→18:03)
[2023-12-25] MEDS: ACETAMINOPHEN 325 MG TABLET 650 MG PO (08:48)
[2023-12-25] MEDS: HYDROXYCHLOROQUINE SULFATE 200 MG TABLET PO ×2 (08:48→21:50)
[2023-12-25] MEDS: PANTOPRAZOLE 40 MG TABLET PO (08:48)
[2023-12-25 12:15] LABS: Glucose Point of Care 133 mg/dl (65-105)
--- NOTE | 2023-12-25 12:15 | P.PNIM_ITS ---
Progress Note: A&P Assessment and Plan (1) Acute transverse myelitis: Code(s): G37.3 - Acute transverse myelitis in demyelinating disease of central nervous system Status: Acute (2) Acute on chronic back pain: Code(s): M54.9 - Dorsalgia, unspecified; G89.29 - Other chronic pain Status: Acute (3) Obstructive sleep apnea: Code(s): G47.33 - Obstructive sleep apnea (adult) (pediatric) Status: Acute (4) Myelomalacia: Code(s): G95.89 - Other specified diseases of spinal cord Status: Acute (5) Bilateral leg weakness: Code(s): R29.898 - Other symptoms and signs involving the musculoskeletal system Status: Acute Plan This is a 43-year-old female with past medical history migraines, morbid obesity, hyperlipidemia, hypertension, asthma, obstructive sleep apnea, CKD stage 3a, chronic back pain/degenerative disc disease rheumatoid arthritis, cutaneous lupus, hidradenitis suppurativa, GERD who presents to [facility] complaining of progressive leg numbness and weakness. She has had chronic back pain that is worse than usual for the past few weeks. Is pulling in nature 11/15. It shoots up from her lower back to her thoracic spine. Also radiates down the legs. In the middle of October she had an epidural steroid injection. She sees Rheumatology and Pain Management at [facility]. She reports since the end of November she had numbness down her right hip and lower extremity. Than weakness began. Five days prior to admission she had weakness and loss of sensation in her left leg as well. Reports lack of sensation from the umbilicus down. Five days prior she presented to [facility] but there is a 4 hour wait so she left and went to [facility]. There a lumbar spine MRI was performed she was subsequently septic home on prednisone for a short course and that helped her pain but her weakness and decreased sensation has persisted. She also has not been able to feel sensation to urinate. She had not had bowel incontinence. Denies acute back injury. She has not traveled. 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 She has not had fever/chills/shortness of breath/cough/chest pain/vomiting/body aches. No sick contacts. She got in contact with [facility] and was then advised to present to [facility] to be admitted under the hospitalist service on 12/22/2023. Acute transverse myelitis -MR lumbar spine obtained from outside facility, currently unable to pull up the image however neurology and Neurosurgery have extensively reviewed and report fairly significant degenerative disc disease at L1-2, L2-3, L3-4 the epidural lipomatosis lumbar spine, mild central stenosis at L2-3, mild to moderate central stenosis at L3-4. MR thoracic spine on 12/22/2023 demonstrates mild thoracic spondylosis and myelomalacia at T9-T10. Subsequent MR thoracic and cervical spine with contrast reveals a very small T2 hyperintense signal focus seen opposite C7, multilevel degenerative disc disease with variable degrees of spinal canal stenosis, intervertebral foraminal narrowing and root compression. No enhancing lesion seen. Previous myelomalacia at T9-T10 not visualized however her symptoms relate with transverse myelitis at T8-T9. -continue to appreciate neurology and neurosurgical recommendations. -available serum and CSF studies reviewed. -quad viral screen negative on 12/23/2023 -no change in lower extremity weakness or loss of sensation, continue to monitor for improvement. -accepted to [facility] on 12/23/23 -continue Solu-Medrol 250 mg IV q.6 hours started on 12/23/2023 -monitor blood pressure and Accu-Cheks and LFTs while on pulse dose steroids -12/25/2023: She now has sensation to pinprick at the lower extremity distal to the knee. She has 1/5 motor strength the left hip on flexion, she is able to wiggle her left toes. Encouragement given, the patient is enthusiastic about this. Continue therapy. Continue post so steroids. Neurology returns on Tuesday12/26/2023 will continue discussed with them. Leukocytosis -procalcitonin normal. Continue to trend in the setting of dose steroid administration Chronic essential hypertension -at goal -continue [employer] furosemide, spironolactone CKD stage IIIA -stable. Continue to trend daily renal function Hyperlipidemia -continue [employer] rosuvastatin 40 mg p.o. q.day JEAN PIERRE -continue CPAP at night Morbid obesity Chronic back pain Degenerative spine disease -continue [employer] gabapentin -counseling provided -pulse dose steroids as above Rheumatoid arthritis, cutaneous lupus -continue [employer]EC[employer] hydroxychloroquine 200 mg p.o. b.i.d. -no active symptoms Hidradenitis -continue [employer]EC[employer]IVE doxycycline 100 mg p.o. b.i.d. -no active abscess GERD -continue [employer]EC[employer]IVE Protonix 40 mg p.o. q.day F/E/N: saline lock IV, replace lytes as needed, cardiac diet GI prophylaxis: Continue [employer]ING [employer]EC[employer]IVE Protonix DVT prophylaxis: Heparin subQ 5000 units t.i.d. Bowel regimen: Monitor Lines: Peripheral IV Precautions: Fall precautions Code Status: Patient wishes to be full code Dispo: Pending transfer to [facility] Neurology, anticipate ultimate disposition to rehab -Living arrangements, functional status, significant history: Lives at home with spouse Note to the patient: The Century Cures Act makes medical notes like these available to patients in the interest of transparency. Please be advised this is a medical document. It is intended for [id number] communication. It is written in medical language and may contain unfamiliar abbreviations or verbiage. Components may appear blunt or direct. Medical documents are in tended to carry relevant information, facts as evident, and the clinical opinion of the practitioner at the time of the encounter. This note was generated by a speech recognition system and may contain inherent errors or omissions not intended by the user. Grammatical errors, random word insertions, deletions, pronoun errors and incomplete sentences are occasional consequences of this technology due to software limitations. Not all errors are caught or corrected. If there are questions or concerns about the content of this note or information contained within the body of this dictation they should be addressed directly with author for clarification. The file time of this note does not necessarily represent the time the patient was seen. Subjective Date/time seen: 12/25/23 12:15 Interval history: No major acute overnight events. The patient reports a nurse she went to go home. In-person evaluation her mood is stable. She was a bit teary-eyed during the evaluation however the report writer provided encouragement. Patient reports she cannot feel some in her left foot. Review of Systems Review of Systems: All systems reviewed & are unremarkable except as noted in HPI and below (Subjective) Exam Const: General: comfortable and no acute distress Other: Obese. HENMT: Mouth: Yes moist mucous membranes Other: Crowded oropharynx, Mallampati score 4 Eyes: Pupils: Equal, round and reactive pupils present Neck: Neck: supple Resp: Effort & Inspection: normal respiratory effort Auscultation: clear to auscultation bilaterally Cardio: Rate: regular rate Rhythm: regular rhythm Heart sounds: no gallops, no murmurs and no rubs GI: GI Palp: Yes Soft to palpation and No Tenderness to palpation present (GI) Urinary Catheter: Urinary Catheter: patent and draining Neuro: Other: Starting from an inch above her umbilicus in circumferential fashion, no sen sation to light touch or pain all the way down to the toes. 12/25/2023: She now has sensation to pi nprick at the lower extremity distal to the knee. She has 1/5 motor strength the left hip on flexion, she is able to wiggle her left toes Extrem: Other: Trivial pitting edema of the bilateral lower extremities distal to knees Objective Data Vital Signs Vital Signs: Vital Signs - 24 hr 12/24/23 13:42 12/24/23 14:40 12/24/23 16:00 Temperature 98.5 F Pulse Rate 72 61 Respiratory Rate 16 Blood Pressure 152/74 H Pulse Oximetry 94 Oxygen Delivery Room Air 12/24/23 21:19 12/24/23 20:00 12/25/23 00:00 Temperature 98.1 F Pulse Rate 61 64 56 L Respiratory Rate 18 Blood Pressure 135/81 Pulse Oximetry 97 Oxygen Delivery 12/25/23 04:00 12/25/23 06:00 12/25/23 08:36 Temperature 98.4 F Pulse Rate 52 L 66 Respiratory Rate 18 Blood Pressure 133/69 Pulse Oximetry 100 Oxygen Delivery Room Air 12/25/23 08:45 Temperature Pulse Rate Respiratory Rate Blood Pressure Pulse Oximetry Oxygen Delivery Room Air Intake/Output Intake/Output: Intake & Output 12/22/23 12/23/23 12/24/23 12/25/23 23:59 23:59 23:59 23:59 Intake Total 1080 860 500 Output Total 1000 1200 900 Balance 80 340 -400 Meds/Results Medications: Active Medications Generic Name Dose Route Start Last Admin Trade Name Freq PRN Reason Stop Dose Admin Acetaminophen 650 mg 12/22/23 21:01 12/25/23 08:48 Acetaminophen 325 Mg Tablet PO 650 mg Q4H PRN Administration Mild Pain (1-3) or Fever Hydrocodone Bitart/Acetaminophen 1 tab 12/22/23 21:01 12/24/23 12:07 Hydrocodone/Acetaminophen (*Crx) 5-325 Mg Tablet PO 1 tab Q6H PRN Administration Pain Rated 4-6 Albuterol 2 puff 12/23/23 05:07 Albuterol Sulfate (*Sp) Aerosol 1 Puff INHALATION Q4HRT PRN Shortness Of Breath Or Wheezing Aspirin 81 mg 12/23/23 09:00 12/23/23 08:31 Aspirin 81 Mg Enteric Tablet PO 81 mg DAILY ISI Administration Dextrose 12.5 gm 12/23/23 19:14 Dextrose 50% 25 Gm/50 Ml Syringe IV PUSH PRN PRN Hypoglycemia Protocol Doxycycline Hyclate 100 mg 12/23/23 09:00 12/25/23 08:47 Doxycycline Hyclate 100 Mg Tablet PO 100 mg Q12HR ISI Administration Furosemide 20 mg 12/23/23 09:00 12/25/23 08:47 Furosemide 20 Mg Tablet PO 20 mg DAILY ISI Administration Gabapentin 300 mg 12/23/23 21:00 12/24/23 20:47 Gabapentin 300 Mg Capsule PO 300 mg QHS ISI Administration Gabapentin 100 mg 12/23/23 09:00 12/25/23 08:47 Gabapentin 100 Mg Capsule PO 100 mg BID ISI Administration Glucagon 1 mg 12/23/23 19:14 Glucagon For Inj 1 Mg Vial IM PRN PRN Hypoglycemia Protocol Glucose 15 gm 12/23/23 19:14 Glucose Oral Gel 15 Gm Of Glucse In 37.5 Gm Tube PO PRN PRN Hypoglycemia Protocol Heparin Sodium (Porcine) 5,000 units 12/24/23 14:00 12/25/23 05:48 Heparin Sodium 5,000 Units/Ml Vial SUB-Q 5,000 units Q8HR ISI Administration Hydroxychloroquine Sulfate 200 mg 12/23/23 09:00 12/25/23 08:48 Hydroxychloroquine Sulfate 200 Mg Tablet PO 200 mg Q12HR ISI Administration Dextrose 1,000 mls @ 100 mls/hr 12/23/23 19:14 Dextrose 5% 1,000 Ml IVPB PRN PRN Hypoglycemia Protocol Insulin Aspart 2 - 5 units 12/24/23 08:00 12/25/23 12:01 Insulin Aspart (*Bkc) 100 Units/Ml SUB-Q Not Given TIDWM ISI Protocol Insulin Aspart 1 - 2 units 12/23/23 21:00 12/24/23 20:47 Insulin Aspart (*Bkc) 100 Units/Ml SUB-Q Not Given [facility] Protocol Methylprednisolone Sodium Succinate 250 mg 12/23/23 17:30 12/25/23 05:48 Methylprednisolone Sod Succ 125 Mg Vial IV PUSH 250 mg Q6HR ISI Administration Morphine Sulfate 2 mg 12/22/23 21:01 12/24/23 17:01 Morphine Sulfate (*Crx) 2 Mg/Ml Inj IV PUSH 2 mg Q4H PRN Administration Pain Rated 7-10 Ondansetron HCl 4 mg 12/24/23 09:26 Ondansetron Inj 4 Mg/2 Ml Vial IV PUSH Q4H PRN Nausea And Vomiting Pantoprazole Sodium 40 mg 12/23/23 09:00 12/25/23 08:48 Pantoprazole 40 Mg Tablet PO 40 mg DAILY ISI Administration Rosuvastatin Calcium 40 mg 12/23/23 09:00 12/25/23 08:47 Rosuvastatin 20 Mg Tablet PO 40 mg DAILY ISI Administration Spironolactone 100 mg 12/23/23 09:00 12/25/23 08:47 Spironolactone 50 Mg Tablet PO 100 mg DAILY ISI Administration Vitamin D 1,000 units 12/23/23 09:00 12/25/23 08:47 Cholecalciferol 1,000 Units Tablet PO 1,000 units DAILY ISI Administration Radiology Results: ITS Impressions Chest X-Ray 12/22/23 11:24 IMPRESSION: 1. No acute cardiopulmonary disease. Brain MRI 12/23/23 13:03 IMPRESSION: 1. No acute intracranial process. No evidence of multiple sclerosis 2. No abnormal enhancement. Cervical Spine MRI 12/23/23 13:41 IMPRESSION: 1. Very small T2 hyperintense signal focus seen in the colon opposite C7 which may be a plaque. Follow-up advised. 2. Multilevel degenerative disc disease with variable degrees of spinal canal stenosis, intervertebral foraminal narrowing and the root compression. 3. No abnormal enhancing lesions seen. Thoracic Spine MRI 12/23/23 14:02 IMPRESSION: No definite abnormality seen with no definite enhancing lesions. Lumbar Puncture Fluoroscopy 12/23/23 22:20 IMPRESSION: 1. Successful fluoro-guided lumbar puncture with normal opening pressure of 19 cm water. Labs Labs: Laboratory Results - last 24 hr 12/24/23 12/24/23 12/25/23 16:47 20:04 05:38 WBC 16.6 H RBC 4.52 Hgb 14.5 Hct 43.3 MCV 95.8 MCH 32.1 MCHC 33.5 RDW 13.0 Plt Count 181 MPV 11.2 H Immature Gran % (Auto) 0.6 H Neut % (Auto) 92.2 H Lymph % (Auto) 4.8 L Wayne % (Auto) 2.3 L Eos % (Auto) 0.0 Baso % (Auto) 0.1 L Lymph # (Auto) 0.80 L Wayne # (Auto) 0.4 Eos # (Auto) 0.0 Baso # (Auto) 0.0 Abs Immat Gran (auto) 0.10 H Absolute Neuts (auto) 15.3 H Absolute Nucleated RBC 0.000 Nucleated RBC % 0.0 Sodium 134 L Potassium 4.5 Chloride 100 Carbon Dioxide 25 Anion Gap 9 BUN 19 H Creatinine 1.00 Estim Creat Clear Calc 81 Estimated GFR 60 Glucose 125 H POC Capillary Glucose 146 H 132 H Calcium 9.0 Magnesium 2.2 Total Bilirubin 0.5 AST 16 ALT 17 Alkaline Phosphatase 127 H Total Protein 7.0 Albumin 3.5 Procalcitonin 0.1 12/25/23 08:08 WBC RBC Hgb Hct MCV MCH MCHC RDW Plt Count MPV Immature Gran % (Auto) Neut % (Auto) Lymph % (Auto) Wayne % (Auto) Eos % (Auto) Baso % (Auto) Lymph # (Auto) Wayne # (Auto) Eos # (Auto) Baso # (Auto) Abs Immat Gran (auto) Absolute Neuts (auto) Absolute Nucleated RBC Nucleated RBC % Sodium Potassium Chloride Carbon Dioxide Anion Gap BUN Creatinine Estim Creat Clear Calc Estimated GFR Glucose POC Capillary Glucose 124 H Calcium Magnesium Total Bilirubin AST ALT Alkaline Phosphatase Total Protein Albumin Procalcitonin
[2023-12-25] MEDS: HYDROcodone/acetaminophen (*CRX) 5-325 MG TABLET 1 TAB PO (15:36)
[2023-12-25 16:54] LABS: Glucose Point of Care 135 mg/dl (65-105)
[2023-12-25 20:04] LABS: Glucose Point of Care 203 mg/dl (65-105)
[2023-12-25] MEDS: GABAPENTIN 300 MG CAPSULE PO (21:50)
[2023-12-25] MEDS: INSULIN ASPART (*BKC) 100 UNITS/ML SUB-Q (21:59)
[2023-12-26] VITALS (9 sets, daily range): BP systolic 127–141; BP diastolic 70–75; PULSE 51–69; RESP 14–17; TEMP 36.3–36.8; O2SAT 97–99
[2023-12-26] MEDS: methylPREDNISolone SOD SUCC 125 MG VIAL 250 MG IV PUSH ×5 (00:07→23:53)
[2023-12-26] MEDS: HEPARIN SODIUM 5,000 UNITS/ML VIAL 5000 UNITS SUB-Q ×3 (06:17→20:45)
[2023-12-26] MEDS: HYDROcodone/acetaminophen (*CRX) 5-325 MG TABLET 1 TAB PO (06:26)
[2023-12-26 06:49] LABS: Hematocrit 42.4 % (37.0-47.0); Hemoglobin 14.6 g/dL (12.0-15.0); Mean Corpuscular HGB Conc 34.4 g/dl (32-36); Mean Corpuscular Hemoglobin 32.4 pg (26-34); Mean Platelet Volume 11.2 fl (7.4-10.4); Platelet Count Result 186 k/mm3 (150-375); Red Blood Count 4.51 M/mm3 (4.2-5.4); Red Cell Distribution Width 12.8 % (11.5-14.5); White Blood Count 12.6 K/mm3 (4.5-10.0)
[2023-12-26 07:00] LABS: Alanine Aminotransferase 16 U/L (6-35); Albumin Level 3.3 g/dL (3.5-5.1); Alkaline Phosphatase 120 U/L (38-126); Anion Gap 4 mmol/L (4-12); Aspartate Amino Transferase 16 U/L (14-36); Bilirubin,Total 0.5 mg/dL (0.2-1.3); Blood Urea Nitrogen 21 mg/dL (7-17); Calcium 8.7 mg/dL (8.4-10.2); Carbon Dioxide 30 mmol/L (22-30); Chloride 100 mmol/L (98-107); Estimated CRCL calculation 81 ml/min; Estimated Glomerular Filt Rate 60; Glucose 124 mg/dL (65-110); Magnesium 2.3 mg/dL (1.6-2.3); Potassium 4.2 mmol/L (3.4-5.0); Sodium 134 mmol/L (137-145)
[2023-12-26 07:56] LABS: Glucose Point of Care 129 mg/dl (65-105)
[2023-12-26] MEDS: FUROSEMIDE 20 MG TABLET PO (09:09)
[2023-12-26] MEDS: CHOLECALCIFEROL 1,000 UNITS TABLET 1000 UNITS PO (09:09)
[2023-12-26] MEDS: PANTOPRAZOLE 40 MG TABLET PO (09:09)
[2023-12-26] MEDS: SPIRONOLACTONE 50 MG TABLET 100 MG PO (09:09)
[2023-12-26] MEDS: ROSUVASTATIN 20 MG TABLET 40 MG PO (09:09)
[2023-12-26] MEDS: HYDROXYCHLOROQUINE SULFATE 200 MG TABLET PO ×2 (09:10→20:45)
[2023-12-26] MEDS: DOXYCYCLINE HYCLATE 100 MG TABLET PO ×2 (09:10→20:45)
[2023-12-26] MEDS: GABAPENTIN 100 MG CAPSULE PO ×2 (09:10→17:11)
--- NOTE | 2023-12-26 10:48 | WPDNEUROPN ---
Progress Note: A&P Assessment and Plan (1) Acute transverse myelitis: Code(s): G37.3 - Acute transverse myelitis in demyelinating disease of central nervous system Status: Acute Subjective Date/time seen: 12/26/23 10:48 Interval history: The patient is 43-year-old with history of weakness in both lower limbs and bladder symptoms found to have clinical findings suggestive of transverse myelitis at level of T8 -9. She feels the left leg is slightly better than right side. She is not able to walk. She feels that the feeling in the left leg is also slightly better but she still does not feel anything when she voids or has bowel movement. Right leg is still severely weak. She does not have any significant weakness in the upper limbs. No weakness of the head and neck muscles. No diplopia or difficulty speech or swallowing. No mental status changes. Review of Systems Review of Systems: All systems reviewed & are unremarkable except as noted in HPI and below Objective Data Vital Signs Vital Signs: Vital Signs - 24 hr 12/25/23 12:00 12/25/23 14:00 12/25/23 16:00 Temperature 36.9 C Pulse Rate 55 L 71 78 Respiratory Rate 18 Blood Pressure 133/70 Pulse Oximetry 100 12/25/23 20:34 12/25/23 20:00 12/26/23 00:00 Temperature 36.8 C Pulse Rate 62 64 52 L Respiratory Rate 16 Blood Pressure 153/70 H Pulse Oximetry 100 12/26/23 04:00 12/26/23 05:25 Temperature 36.5 C Pulse Rate 60 51 L Respiratory Rate 17 Blood Pressure 127/75 Pulse Oximetry 98 Intake/Output Intake/Output: Intake & Output 12/23/23 12/24/23 12/25/23 12/26/23 23:59 23:59 23:59 23:59 Intake Total 5316 810 8606 670 Output Total 1000 1200 1600 850 Balance 80 -340 -220 -180 Meds/Results Medications: Active Medications Generic Name Dose Route Start Last Admin Trade Name Freq PRN Reason Stop Dose Admin Acetaminophen 650 mg 12/22/23 21:01 12/25/23 08:48 Acetaminophen 325 Mg Tablet PO 650 mg Q4H PRN Administration Mild Pain (1-3) or Fever Hydrocodone Bitart/Acetaminophen 1 tab 12/22/23 21:01 12/26/23 06:26 Hydrocodone/Acetaminophen (*Crx) 5-325 Mg Tablet PO 1 tab Q6H PRN Administration Pain Rated 4-6 Albuterol 2 puff 12/23/23 05:07 Albuterol Sulfate (*Sp) Aerosol 1 Puff INHALATION Q4HRT PRN Shortness Of Breath Or Wheezing Aspirin 81 mg 12/23/23 09:00 12/23/23 08:31 Aspirin 81 Mg Enteric Tablet PO 81 mg DAILY ISI Administration Dextrose 12.5 gm 12/23/23 19:14 Dextrose 50% 25 Gm/50 Ml Syringe IV PUSH PRN PRN Hypoglycemia Protocol Doxycycline Hyclate 100 mg 12/23/23 09:00 12/26/23 09:10 Doxycycline Hyclate 100 Mg Tablet PO 100 mg Q12HR ISI Administration Furosemide 20 mg 12/23/23 09:00 12/26/23 09:09 Furosemide 20 Mg Tablet PO 20 mg DAILY ISI Administration Gabapentin 300 mg 12/23/23 21:00 12/25/23 21:50 Gabapentin 300 Mg Capsule PO 300 mg QHS ISI Administration Gabapentin 100 mg 12/23/23 09:00 12/26/23 09:10 Gabapentin 100 Mg Capsule PO 100 mg BID ISI Administration Glucagon 1 mg 12/23/23 19:14 Glucagon For Inj 1 Mg Vial IM PRN PRN Hypoglycemia Protocol Glucose 15 gm 12/23/23 19:14 Glucose Oral Gel 15 Gm Of Glucse In 37.5 Gm Tube PO PRN PRN Hypoglycemia Protocol Heparin Sodium (Porcine) 5,000 units 12/24/23 14:00 12/26/23 06:17 Heparin Sodium 5,000 Units/Ml Vial SUB-Q 5,000 units Q8HR ISI Administration Hydroxychloroquine Sulfate 200 mg 12/23/23 09:00 12/26/23 09:10 Hydroxychloroquine Sulfate 200 Mg Tablet PO 200 mg Q12HR ISI Administration Dextrose 1,000 mls @ 100 mls/hr 12/23/23 19:14 Dextrose 5% 1,000 Ml IVPB PRN PRN Hypoglycemia Protocol Insulin Aspart 2 - 5 units 12/24/23 08:00 12/25/23 18:05 Insulin Aspart (*Bkc) 100 Units/Ml SUB-Q Not Given TIDWM ISI Protocol Insulin Aspart 1 - 2 units 12/23/23 21:00 12/25/23 21:59 Insulin Aspart (*Bkc) 100 Units/Ml SUB-Q 1 units HS ISI Administration Protocol Methylprednisolone Sodium Succinate 250 mg 12/23/23 17:30 12/26/23 06:18 Methylprednisolone Sod Succ 125 Mg Vial IV PUSH 250 mg Q6HR ISI Administration Morphine Sulfate 2 mg 12/22/23 21:01 12/24/23 17:01 Morphine Sulfate (*Crx) 2 Mg/Ml Inj IV PUSH 2 mg Q4H PRN Administration Pain Rated 7-10 Ondansetron HCl 4 mg 12/24/23 09:26 Ondansetron Inj 4 Mg/2 Ml Vial IV PUSH Q4H PRN Nausea And Vomiting Pantoprazole Sodium 40 mg 12/23/23 09:00 12/26/23 09:09 Pantoprazole 40 Mg Tablet PO 40 mg DAILY ISI Administration Rosuvastatin Calcium 40 mg 12/23/23 09:00 12/26/23 09:09 Rosuvastatin 20 Mg Tablet PO 40 mg DAILY ISI Administration Spironolactone 100 mg 12/23/23 09:00 12/26/23 09:09 Spironolactone 50 Mg Tablet PO 100 mg DAILY ISI Administration Vitamin D 1,000 units 12/23/23 09:00 12/26/23 09:09 Cholecalciferol 1,000 Units Tablet PO 1,000 units DAILY ISI Administration Radiology Results: ITS Impressions Chest X-Ray 12/22/23 11:24 IMPRESSION: 1. No acute cardiopulmonary disease. Brain MRI 12/23/23 13:03 IMPRESSION: 1. No acute intracranial process. No evidence of multiple sclerosis 2. No abnormal enhancement. Cervical Spine MRI 12/23/23 13:41 IMPRESSION: 1. Very small T2 hyperintense signal focus seen in the colon opposite C7 which may be a plaque. Follow-up advised. 2. Multilevel degenerative disc disease with variable degrees of spinal canal stenosis, intervertebral foraminal narrowing and the root compression. 3. No abnormal enhancing lesions seen. Thoracic Spine MRI 12/23/23 14:02 IMPRESSION: No definite abnormality seen with no definite enhancing lesions. Lumbar Puncture Fluoroscopy 12/23/23 22:20 IMPRESSION: 1. Successful fluoro-guided lumbar puncture with normal opening pressure of 19 cm water. Labs Labs: Laboratory Results - last 24 hr 12/25/23 12/25/23 12/25/23 12:11 16:43 19:14 WBC RBC Hgb Hct MCV MCH MCHC RDW Plt Count MPV Sodium Potassium Chloride Carbon Dioxide Anion Gap BUN Creatinine Estim Creat Clear Calc Estimated GFR Glucose POC Capillary Glucose 133 H 135 H 203 H Calcium Magnesium Total Bilirubin AST ALT Alkaline Phosphatase Total Protein Albumin 12/26/23 12/26/23 05:51 07:42 WBC 12.6 H RBC 4.51 Hgb 14.6 Hct 42.4 MCV 94.0 MCH 32.4 MCHC 34.4 RDW 12.8 Plt Count 186 MPV 11.2 H Sodium 134 L Potassium 4.2 Chloride 100 Carbon Dioxide 30 Anion Gap 4 BUN 21 H Creatinine 1.00 Estim Creat Clear Calc 81 Estimated GFR 60 Glucose 124 H POC Capillary Glucose 129 H Calcium 8.7 Magnesium 2.3 Total Bilirubin 0.5 AST 16 ALT 16 Alkaline Phosphatase 120 Total Protein 7.0 Albumin 3.3 L
--- NOTE | 2023-12-26 10:49 | P.CDI_ITS ---
CDI Query Clarification Request Patient with a BMI of 43.0 please provide a diagnosis to accompany this finding if known: * Overweight * Obesity * Morbid Obesity * Other/Unknown <Sommer Salgado RN - Last Filed: 12/26/23 10:51> Clarified Diagnosis Clarified Diagnosis: Morbid obesity <Alanis Cavazos MD - Last Filed: 12/26/23 12:45> Provider Comments Morbid obesity <Alanis Cavazos MD - Last Filed: 12/26/23 12:45>
[2023-12-26 11:40] LABS: Glucose Point of Care 153 mg/dl (65-105)
--- NOTE | 2023-12-26 12:46 | P.PNIM_ITS ---
Progress Note: A&P Assessment and Plan (1) Acute transverse myelitis: Code(s): G37.3 - Acute transverse myelitis in demyelinating disease of central nervous system Status: Acute (2) Acute on chronic back pain: Code(s): M54.9 - Dorsalgia, unspecified; G89.29 - Other chronic pain Status: Acute (3) Obstructive sleep apnea: Code(s): G47.33 - Obstructive sleep apnea (adult) (pediatric) Status: Acute (4) Myelomalacia: Code(s): G95.89 - Other specified diseases of spinal cord Status: Acute (5) Bilateral leg weakness: Code(s): R29.898 - Other symptoms and signs involving the musculoskeletal system Status: Acute Plan This is a 43-year-old female with past medical history migraines, morbid obesity, hyperlipidemia, hypertension, asthma, obstructive sleep apnea, CKD stage 3a, chronic back pain/degenerative disc disease rheumatoid arthritis, cutaneous lupus, hidradenitis suppurativa, GERD who presents to [place] [facility] complaining of progressive leg numbness and weakness. She has had chronic back pain that is worse than usual for the past few weeks. Is pulling in nature 11/15. It shoots up from her lower back to her thoracic spine. Also radiates down the legs. In the middle of October she had an epidural steroid injection. She sees Rheumatology and Pain Management at [facility]. She reports since the end of November she had numbness down her right hip and lower extremity. Than weakness began. Five days prior to admission she had weakness and loss of sensation in her left leg as well. Reports lack of sensation from the umbilicus down. Five days prior she presented to [facility] but there is a 4 hour wait so she left and went to [place]. There a lumbar spine MRI was performed she was subsequently septic home on prednisone for a short course and that helped her pain but her weakness and decreased sensation has persisted. She also has not been able to feel sensation to urinate. She had not had bowel incontinence. Denies acute back injury. She has not traveled. 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 She has not had fever/chills/shortness of breath/cough/chest pain/vomiting/body aches. No sick contacts. She got in contact with [place] [facility] and was then advised to present to [place] [facility] to be admitted under the hospitalist service on 12/22/2023. Acute transverse myelitis -MR lumbar spine obtained from outside facility, currently unable to pull up the image however neurology and Neurosurgery have extensively reviewed and report fairly significant degenerative disc disease at L1-2, L2-3, L3-4 the epidural lipomatosis lumbar spine, mild central stenosis at L2-3, mild to moderate central stenosis at L3-4. MR thoracic spine on 12/22/2023 demonstrates mild thoracic spondylosis and myelomalacia at T9-T10. Subsequent MR thoracic and cervical spine with contrast reveals a very small T2 hyperintense signal focus seen opposite C7, multilevel degenerative disc disease with variable degrees of spinal canal stenosis, intervertebral foraminal narrowing and root compression. No enhancing lesion seen. Previous myelomalacia at T9-T10 not visualized however her symptoms relate with transverse myelitis at T8-T9. -continue to appreciate neurology and neurosurgical recommendations. -available serum and CSF studies reviewed. -quad viral screen negative on 12/23/2023 -no change in lower extremity weakness or loss of sensation, continue to monitor for improvement. -accepted to [facility] neurology on 12/23/23 -continue Solu-Medrol 250 mg IV q.6 hours started on 12/23/2023 -monitor blood pressure and Accu-Cheks and LFTs while on pulse dose steroids -12/25/2023: She now has sensation to pinprick at the lower extremity distal to the knee. She has 1/5 motor strength the left hip on flexion, she is able to wiggle her left toes. Encouragement given, the patient is enthusiastic about this. Continue therapy. Continue post so steroids. Neurology returns on Tuesday12/26/2023 will continue discussed with them. -12/26/2023: Patient continues to await transfer to [facility]. He is on day 3 of pulse dose steroids. Her left lower extremity is 5/5 strength in the right lower extremity has also improved to 1/5 strength at the hip. She has continued improvement, encouragement provided. No adverse effects of high-dose steroids identified. Continue a.c. HS Accu-Cheks and telemetry. Reviewed all available serum and CSF studies. No etiology identified. Discussed with Neurology. Leukocytosis -procalcitonin normal. Continue to trend in the setting of dose steroid administration Chronic essential hypertension -at goal -continue [employer] furosemide, spironolactone CKD stage IIIA -stable. Continue to trend daily renal function Hyperlipidemia -continue [employer]PORT[employer] rosuvastatin 40 mg p.o. q.day JEAN PIERRE -continue CPAP at night Morbid obesity Chronic back pain Degenerative spine disease -continue [employer] gabapentin -counseling provided -pulse dose steroids as above Rheumatoid arthritis, cutaneous lupus -continue [employer]PORT[employer] hydroxychloroquine 200 mg p.o. b.i.d. -no active symptoms Hidradenitis -continue [employer] REPORT[employer] doxycycline 100 mg p.o. b.i.d. -no active abscess GERD -continue [employer] REPORTING Protonix 40 mg p.o. q.day F/E/N: saline lock IV, replace lytes as needed, cardiac diet GI prophylaxis: Continue [employer]PORT[employer] Protonix DVT prophylaxis: Heparin subQ 5000 units t.i.d. Bowel regimen: Monitor Lines: Peripheral IV Precautions: Fall precautions Code Status: Patient wishes to be full code Dispo: Pending transfer to [facility] Neurology, anticipate ultimate disposition to rehab -Living arrangements, functional status, significant history: Lives at home with spouse Note to the patient: The 21st Century Cures Act makes medical notes like these available to patients in the interest of transparency. Please be advised this is a medical document. It is intended for [id number] communication. It is written in medical language and may contain unfamiliar abbreviations or verbiage. Components may appear blunt or direct. Medical documents are intended to carry relevant information, facts as evident, and the clinical opinion of the practitioner at the time of the encounter. This note was generated by a speech recognition system and may contain inherent errors or omissions not intended by the user. Grammatical errors, random word insertions, deletions, pronoun errors and incomplete sentences are occasional consequences of this technology due to software limitations. Not all errors are caught or corrected. If there are questions or concerns about the content of this note or information contained within the body of this dictation they should be addressed directly with author for clarification. The file time of this note does not necessarily represent the time the patient was seen. Subjective Date/time seen: 12/26/23 12:46 Interval history: No acute overnight events. Patient has got up to the bathroom with a 4 wheeled walker. She has been dragging her right foot. Patient reports she has good strength in cessation at her left lower extremity now. Also reporting she had a transient episode of sharp pinprick at her right great toe. Review of Systems Review of Systems: All systems reviewed & are unremarkable except as noted in HPI and below (Subjective) Exam Const: General: comfortable and no acute distress Other: Obese. HENMT: Mouth: Yes moist mucous membranes Other: Crowded oropharynx, Mallampati score 4 Eyes: Pupils: Equal, round and reactive pupils present Neck: Neck: supple Resp: Effort & Inspection: normal respiratory effort Auscultation: clear to auscultation bilaterally Cardio: Rate: regular rate Rhythm: regular rhythm Heart sounds: no gallops, no murmurs and no rubs GI: GI Palp: Yes Soft to palpation and No Tenderness to palpation present (GI) Urinary Catheter: Urinary Catheter: patent and draining Neuro: Other: Starting from an inch above her umbilicus in circumferential fashion, no sensation to light touch or pain all the way down to the toes. 12/25/2023: She now has sensation to pi nprick at the lower extremity distal to the knee. She has 1/5 motor strength the left hip on flexion, she is able to wiggle her left toes 12/26/2023: Left lower extremity 5/5 mo tor strength, sensation intact to light touch and pain. Right lower extremity 1/5 motor strength at the flexion of the right hip. Sensation absent. Extrem: Other: Trivial pitting edema of the bilateral lower extremities distal to knees Objective Data Vital Signs Vital Signs: Vital Signs - 24 hr 12/25/23 14:00 12/25/23 16:00 12/25/23 20:34 Temperature 98.4 F 98.2 F Pulse Rate 71 78 62 Respiratory Rate 18 16 Blood Pressure 133/70 153/70 H Pulse Oximetry 100 100 12/25/23 20:00 12/26/23 00:00 12/26/23 04:00 Temperature Pulse Rate 64 52 L 60 Respiratory Rate Blood Pressure Pulse Oximetry 12/26/23 05:25 Temperature 97.7 F Pulse Rate 51 L Respiratory Rate 17 Blood Pressure 127/75 Pulse Oximetry 98 Intake/Output Intake/Output: Intake & Output 12/23/23 12/24/23 12/25/23 12/26/23 23:59 23:59 23:59 23:59 Intake Total 3280 121 3943 670 Output Total 1000 1200 1600 850 Balance 98 -340 -220 -180 Meds/Results Medications: Active Medications Generic Name Dose Route Start Last Admin Trade Name Freq PRN Reason Stop Dose Admin Acetaminophen 650 mg 12/22/23 21:01 12/25/23 08:48 Acetaminophen 325 Mg Tablet PO 650 mg Q4H PRN Administration Mild Pain (1-3) or Fever Hydrocodone Bitart/Acetaminophen 1 tab 12/22/23 21:01 12/26/23 06:26 Hydrocodone/Acetaminophen (*Crx) 5-325 Mg Tablet PO 1 tab Q6H PRN Administration Pain Rated 4-6 Albuterol 2 puff 12/23/23 05:07 Albuterol Sulfate (*Sp) Aerosol 1 Puff INHALATION Q4HRT PRN Shortness Of Breath Or Wheezing Aspirin 81 mg 12/23/23 09:00 12/23/23 08:31 Aspirin 81 Mg Enteric Tablet PO 81 mg DAILY ISI Administration Dextrose 12.5 gm 12/23/23 19:14 Dextrose 50% 25 Gm/50 Ml Syringe IV PUSH PRN PRN Hypoglycemia Protocol Doxycycline Hyclate 100 mg 12/23/23 09:00 12/26/23 09:10 Doxycycline Hyclate 100 Mg Tablet PO 100 mg Q12HR ISI Administration Furosemide 20 mg 12/23/23 09:00 12/26/23 09:09 Furosemide 20 Mg Tablet PO 20 mg DAILY ISI Administration Gabapentin 300 mg 12/23/23 21:00 12/25/23 21:50 Gabapentin 300 Mg Capsule PO 300 mg QHS ISI Administration Gabapentin 100 mg 12/23/23 09:00 12/26/23 09:10 Gabapentin 100 Mg Capsule PO 100 mg BID ISI Administration Glucagon 1 mg 12/23/23 19:14 Glucagon For Inj 1 Mg Vial IM PRN PRN Hypoglycemia Protocol Glucose 15 gm 12/23/23 19:14 Glucose Oral Gel 15 Gm Of Glucse In 37.5 Gm Tube PO PRN PRN Hypoglycemia Protocol Heparin Sodium (Porcine) 5,000 units 12/24/23 14:00 12/26/23 06:17 Heparin Sodium 5,000 Units/Ml Vial SUB-Q 5,000 units Q8HR ISI Administration Hydroxychloroquine Sulfate 200 mg 12/23/23 09:00 12/26/23 09:10 Hydroxychloroquine Sulfate 200 Mg Tablet PO 200 mg Q12HR ISI Administration Dextrose 1,000 mls @ 100 mls/hr 12/23/23 19:14 Dextrose 5% 1,000 Ml IVPB PRN PRN Hypoglycemia Protocol Insulin Aspart 2 - 5 units 12/24/23 08:00 12/25/23 18:05 Insulin Aspart (*Bkc) 100 Units/Ml SUB-Q Not Given TIDWM ISI Protocol Insulin Aspart 1 - 2 units 12/23/23 21:00 12/25/23 21:59 Insulin Aspart (*Bkc) 100 Units/Ml SUB-Q 1 units HS ISI Administration Protocol Methylprednisolone Sodium Succinate 250 mg 12/23/23 17:30 12/26/23 06:18 Methylprednisolone Sod Succ 125 Mg Vial IV PUSH 250 mg Q6HR ISI Administration Morphine Sulfate 2 mg 12/22/23 21:01 12/24/23 17:01 Morphine Sulfate (*Crx) 2 Mg/Ml Inj IV PUSH 2 mg Q4H PRN Administration Pain Rated 7-10 Ondansetron HCl 4 mg 12/24/23 09:26 Ondansetron Inj 4 Mg/2 Ml Vial IV PUSH Q4H PRN Nausea And Vomiting Pantoprazole Sodium 40 mg 12/23/23 09:00 12/26/23 09:09 Pantoprazole 40 Mg Tablet PO 40 mg DAILY ISI Administration Rosuvastatin Calcium 40 mg 12/23/23 09:00 12/26/23 09:09 Rosuvastatin 20 Mg Tablet PO 40 mg DAILY ISI Administration Spironolactone 100 mg 12/23/23 09:00 12/26/23 09:09 Spironolactone 50 Mg Tablet PO 100 mg DAILY ISI Administration Vitamin D 1,000 units 12/23/23 09:00 12/26/23 09:09 Cholecalciferol 1,000 Units Tablet PO 1,000 units DAILY ISI Administration Radiology Results: ITS Impressions Chest X-Ray 12/22/23 11:24 IMPRESSION: 1. No acute cardiopulmonary disease. Brain MRI 12/23/23 13:03 IMPRESSION: 1. No acute intracranial process. No evidence of multiple sclerosis 2. No abnormal enhancement. Cervical Spine MRI 12/23/23 13:41 IMPRESSION: 1. Very small T2 hyperintense signal focus seen in the colon opposite C7 which may be a plaque. Follow-up advised. 2. Multilevel degenerative disc disease with variable degrees of spinal canal stenosis, intervertebral foraminal narrowing and the root compression. 3. No abnormal enhancing lesions seen. Thoracic Spine MRI 12/23/23 14:02 IMPRESSION: No definite abnormality seen with no definite enhancing lesions. Lumbar Puncture Fluoroscopy 12/23/23 22:20 IMPRESSION: 1. Successful fluoro-guided lumbar puncture with normal opening pressure of 19 cm water. Labs Labs: Laboratory Results - last 24 hr 12/25/23 12/25/23 12/26/23 16:43 19:14 05:51 WBC 12.6 H RBC 4.51 Hgb 14.6 Hct 42.4 MCV 94.0 MCH 32.4 MCHC 34.4 RDW 12.8 Plt Count 186 MPV 11.2 H Sodium 134 L Potassium 4.2 Chloride 100 Carbon Dioxide 30 Anion Gap 4 BUN 21 H Creatinine 1.00 Estim Creat Clear Calc 81 Estimated GFR 60 Glucose 124 H POC Capillary Glucose 135 H 203 H Calcium 8.7 Magnesium 2.3 Total Bilirubin 0.5 AST 16 ALT 16 Alkaline Phosphatase 120 Total Protein 7.0 Albumin 3.3 L 12/26/23 12/26/23 07:42 11:38 WBC RBC Hgb Hct MCV MCH MCHC RDW Plt Count MPV Sodium Potassium Chloride Carbon Dioxide Anion Gap BUN Creatinine Estim Creat Clear Calc Estimated GFR Glucose POC Capillary Glucose 129 H 153 H Calcium Magnesium Total Bilirubin AST ALT Alkaline Phosphatase Total Protein Albumin
[2023-12-26 14:15] LABS: DNA (ds) Antibody. <1 IU/mL
[2023-12-26 15:42] LABS: Lyme Disease Ab (IgM), Blot NEGATIVE (NEGATIVE); Lyme Disease Ab(IgG), Blot NEGATIVE (NEGATIVE)
[2023-12-26 16:06] LABS: Glucose Point of Care 149 mg/dl (65-105)
[2023-12-26 20:14] LABS: Glucose Point of Care 198 mg/dl (65-105)
[2023-12-26] MEDS: GABAPENTIN 300 MG CAPSULE PO (20:45)
[2023-12-27] VITALS (9 sets, daily range): BP systolic 119–145; BP diastolic 53–75; PULSE 45–63; RESP 16–20; TEMP 35.9–36.6; O2SAT 95–100
[2023-12-27] MEDS: methylPREDNISolone SOD SUCC 125 MG VIAL 250 MG IV PUSH ×4 (05:22→23:32)
[2023-12-27] MEDS: HEPARIN SODIUM 5,000 UNITS/ML VIAL 5000 UNITS SUB-Q ×2 (05:22→14:26)
[2023-12-27 06:48] LABS: Hematocrit 43.1 % (37.0-47.0); Hemoglobin 14.6 g/dL (12.0-15.0); Mean Corpuscular HGB Conc 33.9 g/dl (32-36); Mean Corpuscular Hemoglobin 32.2 pg (26-34); Mean Corpuscular Volume 94.9 fl (80-100); Mean Platelet Volume 11.4 fl (7.4-10.4); Platelet Count Result 170 k/mm3 (150-375); Red Blood Count 4.54 M/mm3 (4.2-5.4); Red Cell Distribution Width 12.9 % (11.5-14.5); White Blood Count 8.8 K/mm3 (4.5-10.0)
[2023-12-27 06:58] LABS: Anion Gap 6 mmol/L (4-12); Blood Urea Nitrogen 25 mg/dL (7-17); Calcium 8.5 mg/dL (8.4-10.2); Carbon Dioxide 30 mmol/L (22-30); Chloride 97 mmol/L (98-107); Estimated CRCL calculation 74 ml/min; Estimated Glomerular Filt Rate 54; Glucose 118 mg/dL (65-110); Magnesium 2.3 mg/dL (1.6-2.3); Potassium 4.5 mmol/L (3.4-5.0); Sodium 133 mmol/L (137-145)
[2023-12-27 07:38] LABS: Glucose Point of Care 144 mg/dl (65-105)
[2023-12-27] MEDS: HYDROcodone/acetaminophen (*CRX) 5-325 MG TABLET 1 TAB PO (08:36)
[2023-12-27] MEDS: GABAPENTIN 100 MG CAPSULE PO ×2 (08:37→17:11)
[2023-12-27] MEDS: DOXYCYCLINE HYCLATE 100 MG TABLET PO ×2 (08:37→20:52)
[2023-12-27] MEDS: SPIRONOLACTONE 50 MG TABLET 100 MG PO (08:37)
[2023-12-27] MEDS: PANTOPRAZOLE 40 MG TABLET PO (08:37)
[2023-12-27] MEDS: CHOLECALCIFEROL 1,000 UNITS TABLET 1000 UNITS PO (08:37)
[2023-12-27] MEDS: ASPIRIN 81 MG ENTERIC TABLET PO (08:37)
[2023-12-27] MEDS: HYDROXYCHLOROQUINE SULFATE 200 MG TABLET PO ×2 (08:37→20:52)
[2023-12-27] MEDS: FUROSEMIDE 20 MG TABLET PO (08:37)
[2023-12-27] MEDS: ROSUVASTATIN 20 MG TABLET 40 MG PO (08:37)
[2023-12-27 10:39] LABS: ANCA Screen NEGATIVE (NEGATIVE)
[2023-12-27 11:08] LABS: Ceruloplasmin. 21 mg/dL (14-48)
[2023-12-27 12:09] LABS: Copper. 84 mcg/dL (70-175)
--- NOTE | 2023-12-27 13:37 | PM.IMPN ---
Progress Note: A&P Assessment and Plan (1) Acute transverse myelitis: Code(s): G37.3 - Acute transverse myelitis in demyelinating disease of central nervous system Status: Acute (2) Acute on chronic back pain: Code(s): M54.9 - Dorsalgia, unspecified; G89.29 - Other chronic pain Status: Acute (3) Obstructive sleep apnea: Code(s): G47.33 - Obstructive sleep apnea (adult) (pediatric) Status: Acute (4) Myelomalacia: Code(s): G95.89 - Other specified diseases of spinal cord Status: Acute (5) Bilateral leg weakness: Code(s): R29.898 - Other symptoms and signs involving the musculoskeletal system Status: Acute Plan This is a 43-year-old female with past medical history migraines, morbid obesity, hyperlipidemia, hypertension, asthma, obstructive sleep apnea, CKD stage 3a, chronic back pain/degenerative disc disease rheumatoid arthritis, cutaneous lupus, hidradenitis suppurativa, GERD who presents to [facility] complaining of progressive leg numbness and weakness. She has had chronic back pain that is worse than usual for the past few weeks. Is pulling in nature 11/15. It shoots up from her lower back to her thoracic spine. Also radiates down the legs. In the middle of October she had an epidural steroid injection. She sees Rheumatology and Pain Management at [facility]. She reports since the end of November she had numbness down her right hip and lower extremity. Than weakness began. Five days prior to admission she had weakness and loss of sensation in her left leg as well. Reports lack of sensation from the umbilicus down. Five days prior she presented to [facility] but there is a 4 hour wait so she left and went to [place]. There a lumbar spine MRI was performed she was subsequently septic home on prednisone for a short course and that helped her pain but her weakness and decreased sensation has persisted. She also has not been able to feel sensation to urinate. She had not had bowel incontinence. Denies acute back injury. She has not traveled. 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 She has not had fever/chills/shortness of breath/cough/chest pain/vomiting/body aches. No sick contacts. She got in contact with [facility] and was then advised to present to [facility] to be admitted under the hospitalist service on 12/22/2023. Acute transverse myelitis -MR lumbar spine obtained from outside facility, currently unable to pull up the image however neurology and Neurosurgery have extensively reviewed and report fairly significant degenerative disc disease at L1-2, L2-3, L3-4 the epidural lipomatosis lumbar spine, mild central stenosis at L2-3, mild to moderate central stenosis at L3-4. MR thoracic spine on 12/22/2023 demonstrates mild thoracic spondylosis and myelomalacia at T9-T10. Subsequent MR thoracic and cervical spine with contrast reveals a very small T2 hyperintense signal focus seen opposite C7, multilevel degenerative disc disease with variable degrees of spinal canal stenosis, intervertebral foraminal narrowing and root compression. No enhancing lesion seen. Previous myelomalacia at T9-T10 not visualized however her symptoms relate with transverse myelitis at T8-T9. -continue to appreciate neurology and neurosurgical recommendations. -available serum and CSF studies reviewed. -quad viral screen negative on 12/23/2023 -no change in lower extremity weakness or loss of sensation, continue to monitor for improvement. -accepted to [facility] neurology on 12/23/23 -continue Solu-Medrol 250 mg IV q.6 hours started on 12/23/2023 -monitor blood pressure and Accu-Cheks and LFTs while on pulse dose steroids -12/25/2023: She now has sensation to pinprick at the lower extremity distal to the knee. She has 1/5 motor strength the left hip on flexion, she is able to wiggle her left toes. Encouragement given, the patient is enthusiastic about this. Continue therapy. Continue post so steroids. Neurology returns on Tuesday12/26/2023 will continue discussed with them. -12/26/2023: Patient continues to await transfer to [facility]. He is on day 3 of pulse dose steroids. Her left lower extremity is 5/5 strength in the right lower extremity has also improved to 1/5 strength at the hip. She has continued improvement, encouragement provided. No adverse effects of high-dose steroids identified. Continue a.c. HS Accu-Cheks and telemetry. Reviewed all available serum and CSF studies. No etiology identified. Discussed with Neurology. -12/27/2023: Continue Solu-Medrol. Will appreciate Neurology recommendations. Continue therapy. Continue DVT prophylaxis. Leukocytosis -procalcitonin normal. Continue to trend in the setting of dose steroid administration Chronic essential hypertension -at goal -continue [employer] furosemide, spironolactone CKD stage IIIA -stable. Continue to trend daily renal function Hyperlipidemia -continue [employer] rosuvastatin 40 mg p.o. q.day JEAN PIERRE -continue CPAP at night Morbid obesity Chronic back pain Degenerative spine disease -continue [employer] gabapentin -counseling provided -pulse dose steroids as above Rheumatoid arthritis, cutaneous lupus -continue [employer] hydroxychloroquine 200 mg p.o. b.i.d. -no active symptoms Hidradenitis -continue [employer] doxycycline 100 mg p.o. b.i.d. -no active abscess GERD -continue [employer] Protonix 40 mg p.o. q.day F/E/N: saline lock IV, replace lytes as needed, cardiac diet GI prophylaxis: Continue [employer] Protonix DVT prophylaxis: Heparin subQ 5000 units t.i.d. Bowel regimen: Monitor Lines: Peripheral IV Precautions: Fall precautions Code Status: Patient wishes to be full code Dispo: Pending transfer to [facility], anticipate ultimate disposition to rehab -Living arrangements, functional status, significant history: Lives at home with spouse Note to the patient: The 21st Century Cures Act makes medical notes like these available to patients in the interest of transparency. Please be advised this is a medical document. It is intended for [id number] communication. It is written in medical language and may contain unfamiliar abbreviations or verbiage. Components may appear blunt or direct. Medical documents are intended to carry relevant information, facts as evident, and the clinical opinion of the practitioner at the time of the encounter. This note was generated by a speech recognition system and may contain inherent errors or omissions not intended by the user. Grammatical errors, random word insertions, deletions, pronoun errors and incomplete sentences are occasional consequences of this technology due to software limitations. Not all errors are caught or corrected. If there are questions or concerns about the content of this note or information contained within the body of this dictation they should be addressed directly with author for clarification. The file time of this note does not necessarily represent the time the patient was seen. Subjective Date/time seen: 12/27/23 13:37 Interval history: She reports she can now urinate and defecate know that she is. She has gained sensation and strength back in her legs. Patient is in a ecstatic mood Review of Systems Review of Systems: All systems reviewed & are unremarkable except as noted in HPI and below (Subjective) Exam Const: General: comfortable and no acute distress Other: Obese. HENMT: Mouth: Yes moist mucous membranes Other: Crowded oropharynx, Mallampati score 4 Eyes: Pupils: Equal, round and reactive pupils present Neck: Neck: supple Resp: Effort & Inspection: normal respiratory effort Auscultation: clear to auscultation bilaterally Cardio: Rate: regular rate Rhythm: regular rhythm Heart sounds: no gallops, no murmurs and no rubs GI: GI Palp: Yes Soft to palpation and No Tenderness to palpation present (GI) Urinary Catheter: Urinary Catheter: patent and draining Neuro: Other: Starting from an inch above her umbilicus in circumferential fashion, no sensation to light touch or pain all the way down to the toes. 12/25/2023: She now has sensation to pinprick at the lower extremity distal to the knee. She has 1/5 motor strength the left hip on flexion, she is able to wiggle her left toes 12/26/2023: Left lower extremity 5/5 motor strength, sensation intact to light touch and pain. Right lower extremity 1/5 motor strength at the flexion of the right hip. Sensation absent. 12/27/2023: Sensation intact bilateral lower extremities equal. Left lower extremity 5/5 motor strength. Right lower extremity 4/5 however that is limited by her chronic pain at the right lower back Extrem: General: no edema Other: Trivial pitting edema of the bilateral lower extremities distal to knees Objective Data Vital Signs Vital Signs: Vital Signs - 24 hr 12/26/23 14:00 12/26/23 16:00 12/26/23 20:14 Temperature 98.2 F 97.3 F L Pulse Rate 62 62 68 Respiratory Rate 16 14 Blood Pressure 131/70 141/70 H Pulse Oximetry 99 97 Oxygen Delivery 12/26/23 20:45 12/26/23 20:00 12/27/23 00:00 Temperature Pulse Rate 66 53 L Respiratory Rate Blood Pressure Pulse Oximetry Oxygen Delivery Room Air 12/27/23 04:00 12/27/23 06:00 Temperature 96.7 F L Pulse Rate 45 L 53 L Respiratory Rate 16 Blood Pressure 119/53 L Pulse Oximetry 100 Oxygen Delivery Intake/Output Intake/Output: Intake & Output 12/24/23 12/25/23 12/26/23 12/27/23 23:59 23:59 23:59 23:59 Intake Total 860 1380 1290 740 Output Total 1200 1600 1650 550 Balance -340 -220 -360 190 Meds/Results Medications: Active Medications Generic Name Dose Route Start Last Admin Trade Name Freq PRN Reason Stop Dose Admin Acetaminophen 650 mg 12/22/23 21:01 12/25/23 08:48 Acetaminophen 325 Mg Tablet PO 650 mg Q4H PRN Administration Mild Pain (1-3) or Fever Hydrocodone Bitart/Acetaminophen 1 tab 12/22/23 21:01 12/27/23 08:36 Hydrocodone/Acetaminophen (*Crx) 5-325 Mg Tablet PO 1 tab Q6H PRN Administration Pain Rated 4-6 Albuterol 2 puff 12/23/23 05:07 Albuterol Sulfate (*Sp) Aerosol 1 Puff INHALATION Q4HRT PRN Shortness Of Breath Or Wheezing Aspirin 81 mg 12/23/23 09:00 12/27/23 08:37 Aspirin 81 Mg Enteric Tablet PO 81 mg DAILY ISI Administration Dextrose 12.5 gm 12/23/23 19:14 Dextrose 50% 25 Gm/50 Ml Syringe IV PUSH PRN PRN Hypoglycemia Protocol Doxycycline Hyclate 100 mg 12/23/23 09:00 12/27/23 08:37 Doxycycline Hyclate 100 Mg Tablet PO 100 mg Q12HR ISI Administration Furosemide 20 mg 12/23/23 09:00 12/27/23 08:37 Furosemide 20 Mg Tablet PO 20 mg DAILY ISI Administration Gabapentin 300 mg 12/23/23 21:00 12/26/23 20:45 Gabapentin 300 Mg Capsule PO 300 mg QHS ISI Administration Gabapentin 100 mg 12/23/23 09:00 12/27/23 08:37 Gabapentin 100 Mg Capsule PO 100 mg BID ISI Administration Glucagon 1 mg 12/23/23 19:14 Glucagon For Inj 1 Mg Vial IM PRN PRN Hypoglycemia Protocol Glucose 15 gm 12/23/23 19:14 Glucose Oral Gel 15 Gm Of Glucse In 37.5 Gm Tube PO PRN PRN Hypoglycemia Protocol Heparin Sodium (Porcine) 5,000 units 12/24/23 14:00 12/27/23 05:22 Heparin Sodium 5,000 Units/Ml Vial SUB-Q 5,000 units Q8HR ISI Administration Hydroxychloroquine Sulfate 200 mg 12/23/23 09:00 12/27/23 08:37 Hydroxychloroquine Sulfate 200 Mg Tablet PO 200 mg Q12HR ISI Administration Dextrose 1,000 mls @ 100 mls/hr 12/23/23 19:14 Dextrose 5% 1,000 Ml IVPB PRN PRN Hypoglycemia Protocol Insulin Aspart 2 - 5 units 12/24/23 08:00 12/26/23 18:56 Insulin Aspart (*Bkc) 100 Units/Ml SUB-Q Not Given TIDWM ISI Protocol Insulin Aspart 1 - 2 units 12/23/23 21:00 12/26/23 20:45 Insulin Aspart (*Bkc) 100 Units/Ml SUB-Q Not Given HS [facility] Protocol Methylprednisolone Sodium Succinate 250 mg 12/23/23 17:30 12/27/23 12:59 Methylprednisolone Sod Succ 125 Mg Vial IV PUSH 250 mg Q6HR ISI Administration Morphine Sulfate 2 mg 12/22/23 21:01 12/24/23 17:01 Morphine Sulfate (*Crx) 2 Mg/Ml Inj IV PUSH 2 mg Q4H PRN Administration Pain Rated 7-10 Ondansetron HCl 4 mg 12/24/23 09:26 Ondansetron Inj 4 Mg/2 Ml Vial IV PUSH Q4H PRN Nausea And Vomiting Pantoprazole Sodium 40 mg 12/23/23 09:00 12/27/23 08:37 Pantoprazole 40 Mg Tablet PO 40 mg DAILY ISI Administration Rosuvastatin Calcium 40 mg 12/23/23 09:00 12/27/23 08:37 Rosuvastatin 20 Mg Tablet PO 40 mg DAILY ISI Administration Spironolactone 100 mg 12/23/23 09:00 12/27/23 08:37 Spironolactone 50 Mg Tablet PO 100 mg DAILY ISI Administration Vitamin D 1,000 units 12/23/23 09:00 12/27/23 08:37 Cholecalciferol 1,000 Units Tablet PO 1,000 units DAILY ISI Administration Radiology Results: ITS Impressions Chest X-Ray 12/22/23 11:24 IMPRESSION: 1. No acute cardiopulmonary disease. Brain MRI 12/23/23 13:03 IMPRESSION: 1. No acute intracranial process. No evidence of multiple sclerosis 2. No abnormal enhancement. Cervical Spine MRI 12/23/23 13:41 IMPRESSION: 1. Very small T2 hyperintense signal focus seen in the colon opposite C7 which may be a plaque. Follow-up advised. 2. Multilevel degenerative disc disease with variable degrees of spinal canal stenosis, intervertebral foraminal narrowing and the root compression. 3. No abnormal enhancing lesions seen. Thoracic Spine MRI 12/23/23 14:02 IMPRESSION: No definite abnormality seen with no definite enhancing lesions. Lumbar Puncture Fluoroscopy 12/23/23 22:20 IMPRESSION: 1. Successful fluoro-guided lumbar puncture with normal opening pressure of 19 cm water. Labs Labs: Laboratory Results - last 24 hr 12/24/23 12/24/23 12/24/23 05:23 05:24 05:25 WBC RBC Hgb Hct MCV MCH MCHC RDW Plt Count MPV Sodium Potassium Chloride Carbon Dioxide Anion Gap BUN Creatinine Estim Creat Clear Calc Estimated GFR Glucose POC Capillary Glucose Calcium Magnesium Copper 84 Ceruloplasmin 21 ANCA Screen Negative Anti-DNA Antibody <1 Lyme IgG 18 kDa Band Non-reactive Lyme IgG 23 kDa Band Non-reactive Lyme IgG 28 kDa Band Non-reactive Lyme IgG 30 kDa Band Non-reactive Lyme IgG 39 kDa Band Non-reactive Lyme IgG 41 kDa Band Non-reactive Lyme IgG 45 kDa Band Non-reactive Lyme IgG 58 kDa Band Non-reactive Lyme IgG 66 kDa Band Non-reactive Lyme IgG 93 kDa Band Non-reactive Lyme IgG Ab (Immblot) Negative Lyme IgM Ab (Immblot) Negative Lyme IgM 23 kDa Band Non-reactive Lyme IgM 39 kDa Band Non-reactive Lyme IgM 41 kDa Band Non-reactive 12/26/23 12/26/23 12/27/23 15:55 19:50 06:02 WBC 8.8 RBC 4.54 Hgb 14.6 Hct 43.1 MCV 94.9 MCH 32.2 MCHC 33.9 RDW 12.9 Plt Count 170 MPV 11.4 H Sodium 133 L Potassium 4.5 Chloride 97 L Carbon Dioxide 30 Anion Gap 6 BUN 25 H Creatinine 1.10 H Estim Creat Clear Calc 74 Estimated GFR 54 L Glucose 118 H POC Capillary Glucose 149 H 198 H Calcium 8.5 Magnesium 2.3 Copper Ceruloplasmin ANCA Screen Anti-DNA Antibody Lyme IgG 18 kDa Band Lyme IgG 23 kDa Band Lyme IgG 28 kDa Band Lyme IgG 30 kDa Band Lyme IgG 39 kDa Band Lyme IgG 41 kDa Band Lyme IgG 45 kDa Band Lyme IgG 58 kDa Band Lyme IgG 66 kDa Band Lyme IgG 93 kDa Band Lyme IgG Ab (Immblot) Lyme IgM Ab (Immblot) Lyme IgM 23 kDa Band Lyme IgM 39 kDa Band Lyme IgM 41 kDa Band 12/26/ 07:29 WBC RBC Hgb Hct MCV MCH MCHC RDW Plt Count MPV Sodium Potassium Chloride Carbon Dioxide Anion Gap BUN Creatinine Estim Creat Clear Calc Estimated GFR Glucose POC Capillary Glucose 144 H Calcium Magnesium Copper Ceruloplasmin ANCA Screen Anti-DNA Antibody Lyme IgG 18 kDa Band Lyme IgG 23 kDa Band Lyme IgG 28 kDa Band Lyme IgG 30 kDa Band Lyme IgG 39 kDa Band Lyme IgG 41 kDa Band Lyme IgG 45 kDa Band Lyme IgG 58 kDa Band Lyme IgG 66 kDa Band Lyme IgG 93 kDa Band Lyme IgG Ab (Immblot) Lyme IgM Ab (Immblot) Lyme IgM 23 kDa Band Lyme IgM 39 kDa Band Lyme IgM 41 kDa Band
[2023-12-27 16:13] LABS: Glucose Point of Care 154 mg/dl (65-105)
[2023-12-27 17:38] LABS: Methylmalonic Acid. 137 nmol/L (55-335)
[2023-12-27] MEDS: GABAPENTIN 300 MG CAPSULE PO (20:52)
[2023-12-27 21:03] LABS: Glucose Point of Care 143 mg/dl (65-105)
[2023-12-28] VITALS (10 sets, daily range): BP systolic 113–150; BP diastolic 56–75; PULSE 45–72; RESP 16–20; TEMP 36.3–36.8; O2SAT 95–99
[2023-12-28 05:19] LABS: Basophils Percent Auto 0.1 % (0.2-1.2); Hemoglobin 14.7 g/dL (12.0-15.0); Immature Granulocyte Absolute 0.04 K/mm3 (0.00-0.031); Immature Granulocyte Percent A 0.5 % (0-0.5); Lymphocytes Absolute Auto 0.67 K/mm3 (0.9-3.2); Lymphocytes Percent Auto 7.7 % (18.3-44.2); Mean Corpuscular HGB Conc 34.2 g/dl (32-36); Mean Corpuscular Hemoglobin 32.6 pg (26-34); Mean Corpuscular Volume 95.3 fl (80-100); Mean Platelet Volume 11.2 fl (7.4-10.4); Monocytes Absolute Auto 0.4 K/mm3 (0.1-0.6); Monocytes Percent Auto 4.8 % (2.6-8.5); Neutrophils Absolute Auto 7.6 K/mm3 (1.3-6.7); Neutrophils Percent Auto 86.9 % (45.5-73.1); Platelet Count Result 149 k/mm3 (150-375); Red Blood Count 4.51 M/mm3 (4.2-5.4); Red Cell Distribution Width 12.6 % (11.5-14.5); White Blood Count 8.7 K/mm3 (4.5-10.0)
[2023-12-28] MEDS: methylPREDNISolone SOD SUCC 125 MG VIAL 250 MG IV PUSH ×2 (05:28→14:01)
[2023-12-28 05:29] LABS: Alanine Aminotransferase 21 U/L (6-35); Albumin Level 3.2 g/dL (3.5-5.1); Alkaline Phosphatase 114 U/L (38-126); Anion Gap 6 mmol/L (4-12); Aspartate Amino Transferase 21 U/L (14-36); Bilirubin,Total 0.6 mg/dL (0.2-1.3); Blood Urea Nitrogen 26 mg/dL (7-17); Calcium 8.3 mg/dL (8.4-10.2); Carbon Dioxide 29 mmol/L (22-30); Chloride 97 mmol/L (98-107); Estimated CRCL calculation 74 ml/min; Estimated Glomerular Filt Rate 54; Glucose 120 mg/dL (65-110); Magnesium 2.4 mg/dL (1.6-2.3); Potassium 4.4 mmol/L (3.4-5.0); Prothrombin Time 13.9 Seconds (11.1-14.7); Sodium 132 mmol/L (137-145)
[2023-12-28 06:09] LABS: Procalcitonin 0.1 ng/mL
[2023-12-28 07:50] LABS: Glucose Point of Care 132 mg/dl (65-105)
--- NOTE | 2023-12-28 09:45 | PCOTNOTE ---
Patient out ofd the room at this time. Patient, Per RN, went down for a myelogram, unavailable for treatment session. Per RN, Patient will need to be bedrest for 4 hours post. OT treatment will be seen tomorrow.
[2023-12-28 11:28] LABS: Herpes Simplex Type 1 DNA PCR NOT DETECTED; Herpes Simplex Type 2 DNA PCR NOT DETECTED
[2023-12-28 11:31] LABS: Glucose Point of Care 114 mg/dl (65-105)
--- NOTE | 2023-12-28 12:06 | P.PNNEUR_ITS ---
Subjective Date/time seen: 12/28/23 12:06 Interval history: originally seen by Dr. Anthony and treated for acute transverse myelitis in addition patient has underlying obstructive sleep apnea, thoracic MRI has documented myelomalacia at T9 and T10 with the diagnosis of transverse myelitis as mentioned above, MRI of cervical spine has revealed only T2 hyperintensity signal in addition to degenerating disc disease cervical myelogram was carried out rule out the possibility of cervical cord extended disease in a myelogram has been compatible with only mild cervical spondylosis in addition to the suspicion about C5-C6 severe spinal canal stenosis secondary to broad-based disc not documented on the myelogram clinically patient is stable and receiving a medications such Dr. Florentino Nathan will be here tomorrow many can discuss with her about the follow-up. Objective Data Vital Signs Vital Signs: Vital Signs - 24 hr 12/27/23 14:00 12/27/23 16:00 12/27/23 20:00 Temperature 36.6 C Pulse Rate 58 L 58 L Respiratory Rate 18 Blood Pressure 145/67 H Pulse Oximetry 96 Oxygen Delivery Room Air 12/27/23 20:00 12/27/23 22:00 12/28/23 00:00 Temperature 36.5 C Pulse Rate 60 57 L 53 L Respiratory Rate 20 Blood Pressure 139/75 Pulse Oximetry 95 Oxygen Delivery 12/28/23 04:00 12/28/23 06:00 12/28/23 10:44 Temperature 36.8 C Pulse Rate 45 L 57 L 51 L Respiratory Rate 20 20 Blood Pressure 113/56 L 147/71 H Pulse Oximetry 99 97 Oxygen Delivery Intake/Output Intake/Output: Intake & Output 12/25/23 12/26/23 12/27/23 12/28/23 23:59 23:59 23:59 23:59 Intake Total 1380 1290 1120 Output Total 1600 1650 550 Balance -220 -360 570 Meds/Results Medications: Active Medications Generic Name Dose Route Start Last Admin Trade Name Freq PRN Reason Stop Dose Admin Acetaminophen 650 mg 12/22/23 21:01 12/25/23 08:48 Acetaminophen 325 Mg Tablet PO 650 mg Q4H PRN Administration Mild Pain (1-3) or Fever Hydrocodone Bitart/Acetaminophen 1 tab 12/22/23 21:01 12/27/23 08:36 Hydrocodone/Acetaminophen (*Crx) 5-325 Mg Tablet PO 1 tab Q6H PRN Administration Pain Rated 4-6 Albuterol 2 puff 12/23/23 05:07 Albuterol Sulfate (*Sp) Aerosol 1 Puff INHALATION Q4HRT PRN Shortness Of Breath Or Wheezing Aspirin 81 mg 12/23/23 09:00 12/27/23 08:37 Aspirin 81 Mg Enteric Tablet PO 81 mg DAILY ISI Administration Dextrose 12.5 gm 12/23/23 19:14 Dextrose 50% 25 Gm/50 Ml Syringe IV PUSH PRN PRN Hypoglycemia Protocol Doxycycline Hyclate 100 mg 12/23/23 09:00 12/27/23 20:52 Doxycycline Hyclate 100 Mg Tablet PO 100 mg Q12HR ISI Administration Furosemide 20 mg 12/23/23 09:00 12/27/23 08:37 Furosemide 20 Mg Tablet PO 20 mg DAILY ISI Administration Gabapentin 300 mg 12/23/23 21:00 12/27/23 20:52 Gabapentin 300 Mg Capsule PO 300 mg QHS ISI Administration Gabapentin 100 mg 12/23/23 09:00 12/27/23 17:11 Gabapentin 100 Mg Capsule PO 100 mg BID ISI Administration Glucagon 1 mg 12/23/23 19:14 Glucagon For Inj 1 Mg Vial IM PRN PRN Hypoglycemia Protocol Glucose 15 gm 12/23/23 19:14 Glucose Oral Gel 15 Gm Of Glucse In 37.5 Gm Tube PO PRN PRN Hypoglycemia Protocol Heparin Sodium (Porcine) 5,000 units 12/24/23 14:00 12/27/23 14:26 Heparin Sodium 5,000 Units/Ml Vial SUB-Q 5,000 units Q8HR ISI Administration Hydroxychloroquine Sulfate 200 mg 12/23/23 09:00 12/27/23 20:52 Hydroxychloroquine Sulfate 200 Mg Tablet PO 200 mg Q12HR ISI Administration Dextrose 1,000 mls @ 100 mls/hr 12/23/23 19:14 Dextrose 5% 1,000 Ml IVPB PRN PRN Hypoglycemia Protocol Insulin Aspart 2 - 5 units 12/24/23 08:00 12/27/23 19:27 Insulin Aspart (*Bkc) 100 Units/Ml SUB-Q Not Given TIDWM ISI Protocol Insulin Aspart 1 - 2 units 12/23/23 21:00 12/27/23 21:01 Insulin Aspart (*Bkc) 100 Units/Ml SUB-Q Not Given HS ISI Protocol Methylprednisolone Sodium Succinate 250 mg 12/23/23 17:30 12/28/23 05:28 Methylprednisolone Sod Succ 125 Mg Vial IV PUSH 250 mg Q6HR ISI Administration Morphine Sulfate 2 mg 12/22/23 21:01 12/24/23 17:01 Morphine Sulfate (*Crx) 2 Mg/Ml Inj IV PUSH 2 mg Q4H PRN Administration Pain Rated 7-10 Ondansetron HCl 4 mg 12/24/23 09:26 Ondansetron Inj 4 Mg/2 Ml Vial IV PUSH Q4H PRN Nausea And Vomiting Pantoprazole Sodium 40 mg 12/23/23 09:00 12/27/23 08:37 Pantoprazole 40 Mg Tablet PO 40 mg DAILY ISI Administration Rosuvastatin Calcium 40 mg 12/23/23 09:00 12/27/23 08:37 Rosuvastatin 20 Mg Tablet PO 40 mg DAILY ISI Administration Spironolactone 100 mg 12/23/23 09:00 12/27/23 08:37 Spironolactone 50 Mg Tablet PO 100 mg DAILY ISI Administration Vitamin D 1,000 units 12/23/23 09:00 12/27/23 08:37 Cholecalciferol 1,000 Units Tablet PO 1,000 units DAILY ISI Administration Radiology Results: ITS Impressions Chest X-Ray 12/22/23 11:24 IMPRESSION: 1. No acute cardiopulmonary disease. Brain MRI 12/23/23 13:03 IMPRESSION: 1. No acute intracranial process. No evidence of multiple sclerosis 2. No abnormal enhancement. Cervical Spine MRI 12/23/23 13:41 IMPRESSION: 1. Very small T2 hyperintense signal focus seen in the colon opposite C7 which may be a plaque. Follow-up advised. 2. Multilevel degenerative disc disease with variable degrees of spinal canal stenosis, intervertebral foraminal narrowing and the root compression. 3. No abnormal enhancing lesions seen. Thoracic Spine MRI 12/23/23 14:02 IMPRESSION: No definite abnormality seen with no definite enhancing lesions. Lumbar Puncture Fluoroscopy 12/23/23 22:20 IMPRESSION: 1. Successful fluoro-guided lumbar puncture with normal opening pressure of 19 cm water. Cervical Spine CT 12/28/23 10:53 IMPRESSION: 1. Mild cervical spondylosis. Myelogram,Cervical Spine 12/28/23 10:53 IMPRESSION: 1. Mild cervical spondylosis. Labs Labs: Laboratory Results - last 24 hr 08/12/24/23 12/27/23 21:30 05:25 16:09 WBC RBC Hgb Hct MCV MCH MCHC RDW Plt Count MPV Immature Gran % (Auto) Neut % (Auto) Lymph % (Auto) [place] % (Auto) Eos % (Auto) Baso % (Auto) Lymph # (Auto) [place] # (Auto) Eos # (Auto) Baso # (Auto) Abs Immat Gran (auto) Absolute Neuts (auto) Absolute Nucleated RBC Nucleated RBC % PT INR Sodium Potassium Chloride Carbon Dioxide Anion Gap BUN Creatinine Estim Creat Clear Calc Estimated GFR Glucose POC Capillary Glucose 154 H Calcium Magnesium Copper 84 Total Bilirubin AST ALT Alkaline Phosphatase Total Protein Albumin Methylmalonic Acid 137 Alpha-Tocopherol TNP Procalcitonin CSF Herpes I DNA (PCR) Not detected CSF Herpes II DNA (PCR) Not detected HSV (PCR) Source Cerebrospinal fluid 12/27/23 12/28/23 12/28/23 20:58 05:13 07:40 WBC 8.7 RBC 4.51 Hgb 14.7 Hct 43.0 MCV 95.3 MCH 32.6 MCHC 34.2 RDW 12.6 Plt Count 149 L MPV 11.2 H Immature Gran % (Auto) 0.5 Neut % (Auto) 86.9 H Lymph % (Auto) 7.7 L [place] % (Auto) 4.8 Eos % (Auto) 0.0 Baso % (Auto) 0.1 L Lymph # (Auto) 0.67 L [place] # (Auto) 0.4 Eos # (Auto) 0.0 Baso # (Auto) 0.0 Abs Immat Gran (auto) 0.04 H Absolute Neuts (auto) 7.6 H Absolute Nucleated RBC 0.000 Nucleated RBC % 0.0 PT 13.9 INR 1.0 Sodium 132 L Potassium 4.4 Chloride 97 L Carbon Dioxide 29 Anion Gap 6 BUN 26 H Creatinine 1.10 H Estim Creat Clear Calc 74 Estimated GFR 54 L Glucose 120 H POC Capillary Glucose 143 H 132 H Calcium 8.3 L Magnesium 2.4 H Copper Total Bilirubin 0.6 AST 21 ALT 21 Alkaline Phosphatase 114 Total Protein 7.0 Albumin 3.2 L Methylmalonic Acid Alpha-Tocopherol Procalcitonin 0.1 CSF Herpes I DNA (PCR) CSF Herpes II DNA (PCR) HSV (PCR) Source 12/28/23 11:21 WBC RBC Hgb Hct MCV MCH MCHC RDW Plt Count MPV Immature Gran % (Auto) Neut % (Auto) Lymph % (Auto) [place] % (Auto) Eos % (Auto) Baso % (Auto) Lymph # (Auto) [place] # (Auto) Eos # (Auto) Baso # (Auto) Abs Immat Gran (auto) Absolute Neuts (auto) Absolute Nucleated RBC Nucleated RBC % PT INR Sodium Potassium Chloride Carbon Dioxide Anion Gap BUN Creatinine Estim Creat Clear Calc Estimated GFR Glucose POC Capillary Glucose 114 H Calcium Magnesium Copper Total Bilirubin AST ALT Alkaline Phosphatase Total Protein Albumin Methylmalonic Acid Alpha-Tocopherol Procalcitonin CSF Herpes I DNA (PCR) CSF Herpes II DNA (PCR) HSV (PCR) Source
[2023-12-28] MEDS: ASPIRIN 81 MG ENTERIC TABLET PO (13:57)
[2023-12-28] MEDS: FUROSEMIDE 20 MG TABLET PO (13:58)
[2023-12-28] MEDS: PANTOPRAZOLE 40 MG TABLET PO (13:58)
[2023-12-28] MEDS: HYDROXYCHLOROQUINE SULFATE 200 MG TABLET PO ×2 (13:59→20:19)
[2023-12-28] MEDS: CHOLECALCIFEROL 1,000 UNITS TABLET 1000 UNITS PO (13:59)
[2023-12-28] MEDS: DOXYCYCLINE HYCLATE 100 MG TABLET PO ×2 (13:59→20:19)
[2023-12-28] MEDS: GABAPENTIN 100 MG CAPSULE PO ×2 (13:59→17:35)
[2023-12-28] MEDS: ROSUVASTATIN 20 MG TABLET 40 MG PO (13:59)
[2023-12-28] MEDS: SPIRONOLACTONE 50 MG TABLET 100 MG PO (14:00)
--- NOTE | 2023-12-28 15:45 | PM.IMPN ---
Progress Note: A&P Assessment and Plan (1) Acute transverse myelitis: Code(s): G37.3 - Acute transverse myelitis in demyelinating disease of central nervous system Status: Acute (2) Acute on chronic back pain: Code(s): M54.9 - Dorsalgia, unspecified; G89.29 - Other chronic pain Status: Acute (3) Obstructive sleep apnea: Code(s): G47.33 - Obstructive sleep apnea (adult) (pediatric) Status: Acute (4) Myelomalacia: Code(s): G95.89 - Other specified diseases of spinal cord Status: Acute (5) Bilateral leg weakness: Code(s): R29.898 - Other symptoms and signs involving the musculoskeletal system Status: Acute Plan This is a 43-year-old female with past medical history migraines, morbid obesity, hyperlipidemia, hypertension, asthma, obstructive sleep apnea, CKD stage 3a, chronic back pain/degenerative disc disease rheumatoid arthritis, cutaneous lupus, hidradenitis suppurativa, GERD who presents to [facility] complaining of progressive leg numbness and weakness. She has had chronic back pain that is worse than usual for the past few weeks. Is pulling in nature 11/15. It shoots up from her lower back to her thoracic spine. Also radiates down the legs. In the middle of October she had an epidural steroid injection. She sees Rheumatology and Pain Management at [facility]. She reports since the end of November she had numbness down her right hip and lower extremity. Than weakness began. Five days prior to admission she had weakness and loss of sensation in her left leg as well. Reports lack of sensation from the umbilicus down. Five days prior she presented to [facility] but there is a 4 hour wait so she left and went to [place]. There a lumbar spine MRI was performed she was subsequently septic home on prednisone for a short course and that helped her pain but her weakness and decreased sensation has persisted. She also has not been able to feel sensation to urinate. She had not had bowel incontinence. Denies acute back injury. She has not traveled. 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 She has not had fever/chills/shortness of breath/cough/chest pain/vomiting/body aches. No sick contacts. She got in contact with [facility] and was then advised to present to [facility] to be admitted under the hospitalist service on 12/22/2023. Acute transverse myelitis -MR lumbar spine obtained from outside facility, currently unable to pull up the image however neurology and Neurosurgery have extensively reviewed and report fairly significant degenerative disc disease at L1-2, L2-3, L3-4 the epidural lipomatosis lumbar spine, mild central stenosis at L2-3, mild to moderate central stenosis at L3-4. MR thoracic spine on 12/22/2023 demonstrates mild thoracic spondylosis and myelomalacia at T9-T10. Subsequent MR thoracic and cervical spine with contrast reveals a very small T2 hyperintense signal focus seen opposite C7, multilevel degenerative disc disease with variable degrees of spinal canal stenosis, intervertebral foraminal narrowing and root compression. No enhancing lesion seen. Previous myelomalacia at T9-T10 not visualized however her symptoms relate with transverse myelitis at T8-T9. -continue to appreciate neurology and neurosurgical recommendations. -available serum and CSF studies reviewed. -quad viral screen negative on 12/23/2023 -no change in lower extremity weakness or loss of sensation, continue to monitor for improvement. -accepted to [facility] neurology on 12/23/23 -continue Solu-Medrol 250 mg IV q.6 hours started on 12/23/2023 -monitor blood pressure and Accu-Cheks and LFTs while on pulse dose steroids -12/25/2023: She now has sensation to pinprick at the lower extremity distal to the knee. She has 1/5 motor strength the left hip on flexion, she is able to wiggle her left toes. Encouragement given, the patient is enthusiastic about this. Continue therapy. Continue post so steroids. Neurology returns on Tuesday12/26/2023 will continue discussed with them. -12/26/2023: Patient continues to await transfer to [facility]. He is on day 3 of pulse dose steroids. Her left lower extremity is 5/5 strength in the right lower extremity has also improved to 1/5 strength at the hip. She has continued improvement, encouragement provided. No adverse effects of high-dose steroids identified. Continue a.c. HS Accu-Cheks and telemetry. Reviewed all available serum and CSF studies. No etiology identified. Discussed with Neurology. -12/27/2023: Continue Solu-Medrol. Will appreciate Neurology recommendations. Continue therapy. Continue DVT prophylaxis. -12/28/2023: Patient has 5/5 motor strength, sensation intact in all 4 extremities. She is on day 6 of pulse dose steroids at a 1000 mg per day. Begin to wean, decreasing Solu-Medrol to 150 mg IV q.6 hours. She remains on the wait list to [facility]. Neurology continues to provide recommendations. Her cervical myelogram demonstrates mild cervical spondylosis. Leukocytosis -procalcitonin normal. Continue to trend in the setting of dose steroid administration Chronic essential hypertension -at goal -continue GENERAL LEDGER ACCOUNTANT furosemide, spironolactone CKD stage IIIA -stable. Continue to trend daily renal function Hyperlipidemia -continue GENERAL LEDGER ACCOUNTANT rosuvastatin 40 mg p.o. q.day JEAN PIERRE -continue CPAP at night Morbid obesity Chronic back pain Degenerative spine disease -continue GENERAL LEDGER ACCOUNTANT gabapentin -counseling provided -pulse dose steroids as above Rheumatoid arthritis, cutaneous lupus -continue GENERAL LEDGER ACCOUNTANT hydroxychloroquine 200 mg p.o. b.i.d. -no active symptoms Hidradenitis -continue GENERAL LEDGER ACCOUNTANT doxycycline 100 mg p.o. b.i.d. -no active abscess GERD -continue GENERAL LEDGER ACCOUNTANT Protonix 40 mg p.o. q.day F/E/N: saline lock IV, replace lytes as needed, cardiac diet GI prophylaxis: Continue GENERAL LEDGER ACCOUNTANT Protonix DVT prophylaxis: Heparin subQ 5000 units t.i.d. Bowel regimen: Monitor Lines: Peripheral IV Precautions: Fall precautions Code Status: Patient wishes to be full code Dispo: Pending transfer to [facility] Neurology, rehab eval is ongoing -Living arrangements, functional status, significant history: Lives at home with spouse Note to the patient: The 21st Century Cures Act makes medical notes like these available to patients in the interest of transparency. Please be advised this is a medical document. It is intended for [id number] communication. It is written in medical language and may contain unfamiliar abbreviations or verbiage. Components may appear blunt or direct. Medical documents are intended to carry relevant information, facts as evident, and the clinical opinion of the practitioner at the time of the encounter. This note was generated by a speech recognition system and may contain inherent errors or omissions not intended by the user. Grammatical errors, random word insertions, deletions, pronoun errors and incomplete sentences are occasional consequences of this technology due to software limitations. Not all errors are caught or corrected. If there are questions or concerns about the content of this note or information contained within the body of this dictation they should be addressed directly with author for clarification. The file time of this note does not necessarily represent the time the patient was seen. Subjective Date/time seen: 12/28/23 15:45 Interval history: No major acute overnight events. The patient continues to be in good spirits. She reports she has all of her sensation back in the whole body. She reports very good motor function in her lower extremities the left leg all the way improved and the right leg only seems minimally weak. She is now experiencing appropriate sensations for defecation and urination. Review of Systems Review of Systems: All systems reviewed & are unremarkable except as noted in HPI and below (Subjective) Exam Const: General: comfortable and no acute distress Other: Obese. HENMT: Mouth: Yes moist mucous membranes Other: Crowded oropharynx, Mallampati score 4 Eyes: Pupils: Equal, round and reactive pupils present Neck: Neck: supple Resp: Effort & Inspection: normal respiratory effort Auscultation: clear to auscultation bilaterally Cardio: Rate: regular rate Rhythm: regular rhythm Heart sounds: no gallops, no murmurs and no rubs GI: GI Palp: Yes Soft to palpation and No Tenderness to palpation present (GI) Urinary Catheter: Urinary Catheter: patent and draining Neuro: Other: Starting from an inch above her umbilicus in circumferential fashion, no sensation to light touch or pain all the way down to the toes. 12/25/2023: She now has sensation to pinprick at the lower extremity distal to the knee. She has 1/5 motor strength the left hip on flexion, she is able to wiggle her left toes 12/26/2023: Left lower extremity 5/5 motor strength, sensation intact to light touch and pain. Right lower extremity 1/5 motor strength at the flexion of the right hip. Sensation absent. 12/27/2023: Sensation intact bilateral lower extremities equal. Left lower extremity 5/5 motor strength. Right lower extremity 4/5 however that is limited by her chronic pain at the right lower back 12/28/2023: Sensation intact all 4 extremities. 5/5 motor strength all 4 extremities. Extrem: General: no edema Other: Trivial pitting edema of the bilateral lower extremities distal to knees Objective Data Vital Signs Vital Signs: Vital Signs - 24 hr 12/27/23 16:00 12/27/23 20:00 12/27/23 20:00 Temperature Pulse Rate 58 L 60 Respiratory Rate Blood Pressure Pulse Oximetry Oxygen Delivery Room Air 12/27/23 22:00 12/28/23 00:00 12/28/23 04:00 Temperature 97.7 F Pulse Rate 57 L 53 L 45 L Respiratory Rate 20 Blood Pressure 139/75 Pulse Oximetry 95 Oxygen Delivery 12/28/23 06:00 12/28/23 10:44 12/28/23 08:00 Temperature 98.3 F Pulse Rate 57 L 51 L 55 L Respiratory Rate 20 20 Blood Pressure 113/56 L 147/71 H Pulse Oximetry 99 97 Oxygen Delivery 12/28/23 12:00 12/28/23 14:00 Temperature 98.0 F Pulse Rate 55 L 60 Respiratory Rate 16 Blood Pressure 150/75 H Pulse Oximetry 99 Oxygen Delivery Intake/Output Intake/Output: Intake & Output 12/25/23 12/26/23 12/27/23 12/28/23 23:59 23:59 23:59 23:59 Intake Total 1380 1290 1120 240 Output Total 1600 1650 550 Balance -220 -360 570 240 Meds/Results Medications: Active Medications Generic Name Dose Route Start Last Admin Trade Name Freq PRN Reason Stop Dose Admin Acetaminophen 650 mg 12/22/23 21:01 12/25/23 08:48 Acetaminophen 325 Mg Tablet PO 650 mg Q4H PRN Administration Mild Pain (1-3) or Fever Hydrocodone Bitart/Acetaminophen 1 tab 12/22/23 21:01 12/27/23 08:36 Hydrocodone/Acetaminophen (*Crx) 5-325 Mg Tablet PO 1 tab Q6H PRN Administration Pain Rated 4-6 Albuterol 2 puff 12/23/23 05:07 Albuterol Sulfate (*Sp) Aerosol 1 Puff INHALATION Q4HRT PRN Shortness Of Breath Or Wheezing Aspirin 81 mg 12/23/23 09:00 12/28/23 13:57 Aspirin 81 Mg Enteric Tablet PO 81 mg DAILY ISI Administration Dextrose 12.5 gm 12/23/23 19:14 Dextrose 50% 25 Gm/50 Ml Syringe IV PUSH PRN PRN Hypoglycemia Protocol Doxycycline Hyclate 100 mg 12/23/23 09:00 12/28/23 13:59 Doxycycline Hyclate 100 Mg Tablet PO 100 mg Q12HR ISI Administration Furosemide 20 mg 12/23/23 09:00 12/28/23 13:58 Furosemide 20 Mg Tablet PO 20 mg DAILY ISI Administration Gabapentin 300 mg 12/23/23 21:00 12/27/23 20:52 Gabapentin 300 Mg Capsule PO 300 mg QHS ISI Administration Gabapentin 100 mg 12/23/23 09:00 12/28/23 13:59 Gabapentin 100 Mg Capsule PO 100 mg BID ISI Administration Glucagon 1 mg 12/23/23 19:14 Glucagon For Inj 1 Mg Vial IM PRN PRN Hypoglycemia Protocol Glucose 15 gm 12/23/23 19:14 Glucose Oral Gel 15 Gm Of Glucse In 37.5 Gm Tube PO PRN PRN Hypoglycemia Protocol Heparin Sodium (Porcine) 5,000 units 12/24/23 14:00 12/27/23 14:26 Heparin Sodium 5,000 Units/Ml Vial SUB-Q 5,000 units Q8HR ISI Administration Hydroxychloroquine Sulfate 200 mg 12/23/23 09:00 12/28/23 13:59 Hydroxychloroquine Sulfate 200 Mg Tablet PO 200 mg Q12HR ISI Administration Dextrose 1,000 mls @ 100 mls/hr 12/23/23 19:14 Dextrose 5% 1,000 Ml IVPB PRN PRN Hypoglycemia Protocol Insulin Aspart 2 - 5 units 12/24/23 08:00 12/27/23 19:27 Insulin Aspart (*Bkc) 100 Units/Ml SUB-Q Not Given TIDWM [facility] Protocol Insulin Aspart 1 - 2 units 12/23/23 21:00 12/27/23 21:01 Insulin Aspart (*Bkc) 100 Units/Ml SUB-Q Not Given HS [facility] Protocol Methylprednisolone Sodium Succinate 250 mg 12/23/23 17:30 12/28/23 14:01 Methylprednisolone Sod Succ 125 Mg Vial IV PUSH 250 mg Q6HR ISI Administration Morphine Sulfate 2 mg 12/22/23 21:01 12/24/23 17:01 Morphine Sulfate (*Crx) 2 Mg/Ml Inj IV PUSH 2 mg Q4H PRN Administration Pain Rated 7-10 Ondansetron HCl 4 mg 12/24/23 09:26 Ondansetron Inj 4 Mg/2 Ml Vial IV PUSH Q4H PRN Nausea And Vomiting Pantoprazole Sodium 40 mg 12/23/23 09:00 12/28/23 13:58 Pantoprazole 40 Mg Tablet PO 40 mg DAILY ISI Administration Rosuvastatin Calcium 40 mg 12/23/23 09:00 12/28/23 13:59 Rosuvastatin 20 Mg Tablet PO 40 mg DAILY ISI Administration Spironolactone 100 mg 12/23/23 09:00 12/28/23 14:00 Spironolactone 50 Mg Tablet PO 100 mg DAILY ISI Administration Vitamin D 1,000 units 12/23/23 09:00 12/28/23 13:59 Cholecalciferol 1,000 Units Tablet PO 1,000 units DAILY ISI Administration Radiology Results: ITS Impressions Chest X-Ray 12/22/23 11:24 IMPRESSION: 1. No acute cardiopulmonary disease. Brain MRI 12/23/23 13:03 IMPRESSION: 1. No acute intracranial process. No evidence of multiple sclerosis 2. No abnormal enhancement. Cervical Spine MRI 12/23/23 13:41 IMPRESSION: 1. Very small T2 hyperintense signal focus seen in the colon opposite C7 which may be a plaque. Follow-up advised. 2. Multilevel degenerative disc disease with variable degrees of spinal canal stenosis, intervertebral foraminal narrowing and the root compression. 3. No abnormal enhancing lesions seen. Thoracic Spine MRI 12/23/23 14:02 IMPRESSION: No definite abnormality seen with no definite enhancing lesions. Lumbar Puncture Fluoroscopy 12/23/23 22:20 IMPRESSION: 1. Successful fluoro-guided lumbar puncture with normal opening pressure of 19 cm water. Cervical Spine CT 12/28/23 10:53 IMPRESSION: 1. Mild cervical spondylosis. Myelogram,Cervical Spine 12/28/23 10:53 IMPRESSION: 1. Mild cervical spondylosis. Labs Labs: Laboratory Results - last 24 hr 12/23/23 12/24/23 12/27/23 21:30 05:25 16:09 WBC RBC Hgb Hct MCV MCH MCHC RDW Plt Count MPV Immature Gran % (Auto) Neut % (Auto) Lymph % (Auto) Butler % (Auto) Eos % (Auto) Baso % (Auto) Lymph # (Auto) Butler # (Auto) Eos # (Auto) Baso # (Auto) Abs Immat Gran (auto) Absolute Neuts (auto) Absolute Nucleated RBC Nucleated RBC % PT INR Sodium Potassium Chloride Carbon Dioxide Anion Gap BUN Creatinine Estim Creat Clear Calc Estimated GFR Glucose POC Capillary Glucose 154 H Calcium Magnesium Total Bilirubin AST ALT Alkaline Phosphatase Total Protein Albumin Methylmalonic Acid 137 Alpha-Tocopherol TNP B- and G-Tocopherol TNP Procalcitonin CSF Herpes I DNA (PCR) Not detected CSF Herpes II DNA (PCR) Not detected HSV (PCR) Source Cerebrospinal fluid 12/27/23 12/28/23 12/28/23 20:58 05:13 07:40 WBC 8.7 RBC 4.51 Hgb 14.7 Hct 43.0 MCV 95.3 MCH 32.6 MCHC 34.2 RDW 12.6 Plt Count 149 L MPV 11.2 H Immature Gran % (Auto) 0.5 Neut % (Auto) 86.9 H Lymph % (Auto) 7.7 L Butler % (Auto) 4.8 Eos % (Auto) 0.0 Baso % (Auto) 0.1 L Lymph # (Auto) 0.67 L Butler # (Auto) 0.4 Eos # (Auto) 0.0 Baso # (Auto) 0.0 Abs Immat Gran (auto) 0.04 H Absolute Neuts (auto) 7.6 H Absolute Nucleated RBC 0.000 Nucleated RBC % 0.0 PT 13.9 INR 1.0 Sodium 132 L Potassium 4.4 Chloride 97 L Carbon Dioxide 29 Anion Gap 6 BUN 26 H Creatinine 1.10 H Estim Creat Clear Calc 74 Estimated GFR 54 L Glucose 120 H POC Capillary Glucose 143 H 132 H Calcium 8.3 L Magnesium 2.4 H Total Bilirubin 0.6 AST 21 ALT 21 Alkaline Phosphatase 114 Total Protein 7.0 Albumin 3.2 L Methylmalonic Acid Alpha-Tocopherol B- and G-Tocopherol Procalcitonin 0.1 CSF Herpes I DNA (PCR) CSF Herpes II DNA (PCR) HSV (PCR) Source 12/28/23 11:21 WBC RBC Hgb Hct MCV MCH MCHC RDW Plt Count MPV Immature Gran % (Auto) Neut % (Auto) Lymph % (Auto) Butler % (Auto) Eos % (Auto) Baso % (Auto) Lymph # (Auto) Butler # (Auto) Eos # (Auto) Baso # (Auto) Abs Immat Gran (auto) Absolute Neuts (auto) Absolute Nucleated RBC Nucleated RBC % PT INR Sodium Potassium Chloride Carbon Dioxide Anion Gap BUN Creatinine Estim Creat Clear Calc Estimated GFR Glucose POC Capillary Glucose 114 H Calcium Magnesium Total Bilirubin AST ALT Alkaline Phosphatase Total Protein Albumin Methylmalonic Acid Alpha-Tocopherol B- and G-Tocopherol Procalcitonin CSF Herpes I DNA (PCR) CSF Herpes II DNA (PCR) HSV (PCR) Source
[2023-12-28 16:33] LABS: Glucose Point of Care 132 mg/dl (65-105)
[2023-12-28] MEDS: methylPREDNISolone SOD SUCC 125 MG VIAL 150 MG IV PUSH ×2 (17:35→23:16)
[2023-12-28 20:11] LABS: Glucose Point of Care 200 mg/dl (65-105)
[2023-12-28] MEDS: GABAPENTIN 300 MG CAPSULE PO (20:19)
[2023-12-29] VITALS: PULSE 50
[2023-12-29 02:24] LABS: Varicella IgM Antibody 0.27
[2023-12-29 04:00] VITALS: PULSE 50
[2023-12-29 05:35] VITALS: BP 120/65; PULSE 56; RESP 14; TEMP 35.8; O2SAT 100
[2023-12-29] MEDS: methylPREDNISolone SOD SUCC 125 MG VIAL 150 MG IV PUSH ×2 (05:46→12:19)
[2023-12-29 07:12] LABS: Basophils Percent Auto 0.1 % (0.2-1.2); Hematocrit 41.9 % (37.0-47.0); Hemoglobin 14.7 g/dL (12.0-15.0); Immature Granulocyte Absolute 0.06 K/mm3 (0.00-0.031); Immature Granulocyte Percent A 0.6 % (0-0.5); Immature Platelet Fraction Pct 10.9 % (0.9-11.2); Lymphocytes Absolute Auto 0.86 K/mm3 (0.9-3.2); Lymphocytes Percent Auto 8.3 % (18.3-44.2); Mean Corpuscular HGB Conc 35.1 g/dl (32-36); Mean Corpuscular Volume 93.9 fl (80-100); Mean Platelet Volume 11.9 fl (7.4-10.4); Monocytes Absolute Auto 0.7 K/mm3 (0.1-0.6); Monocytes Percent Auto 6.5 % (2.6-8.5); Neutrophils Absolute Auto 8.7 K/mm3 (1.3-6.7); Neutrophils Percent Auto 84.5 % (45.5-73.1); Platelet Count Result 135 k/mm3 (150-375); Red Blood Count 4.46 M/mm3 (4.2-5.4); Red Cell Distribution Width 12.5 % (11.5-14.5); White Blood Count 10.3 K/mm3 (4.5-10.0)
[2023-12-29 07:26] LABS: Glucose Point of Care 109 mg/dl (65-105)
[2023-12-29 08:00] VITALS: PULSE 46
[2023-12-29 08:25] LABS: Alanine Aminotransferase 27 U/L (6-35); Albumin Level 2.9 g/dL (3.5-5.1); Alkaline Phosphatase 136 U/L (38-126); Anion Gap 5 mmol/L (4-12); Aspartate Amino Transferase 24 U/L (14-36); Bilirubin,Total 0.8 mg/dL (0.2-1.3); Blood Urea Nitrogen 27 mg/dL (7-17); Calcium 8.2 mg/dL (8.4-10.2); Carbon Dioxide 28 mmol/L (22-30); Chloride 99 mmol/L (98-107); Estimated CRCL calculation 90 ml/min; Estimated Glomerular Filt Rate > 60; Glucose 106 mg/dL (65-110); Magnesium 2.4 mg/dL (1.6-2.3); Potassium 4.7 mmol/L (3.4-5.0); Sodium 132 mmol/L (137-145)
[2023-12-29] MEDS: CHOLECALCIFEROL 1,000 UNITS TABLET 1000 UNITS PO (08:28)
[2023-12-29] MEDS: DOXYCYCLINE HYCLATE 100 MG TABLET PO (08:28)
[2023-12-29] MEDS: PANTOPRAZOLE 40 MG TABLET PO (08:28)
[2023-12-29] MEDS: SPIRONOLACTONE 50 MG TABLET 100 MG PO (08:28)
[2023-12-29] MEDS: GABAPENTIN 100 MG CAPSULE PO (08:28)
[2023-12-29] MEDS: ASPIRIN 81 MG ENTERIC TABLET PO (08:28)
[2023-12-29] MEDS: FUROSEMIDE 20 MG TABLET PO (08:28)
[2023-12-29] MEDS: ROSUVASTATIN 20 MG TABLET 40 MG PO (08:28)
[2023-12-29] MEDS: HYDROXYCHLOROQUINE SULFATE 200 MG TABLET PO (08:28)
--- NOTE | 2023-12-29 11:30 | PM.DS ---
DS: Admitting Diagnosis Discharge Date 12/29/2023 Admitting Diagnosis Acute transverse myelitis DS: Discharge Diagnosis Discharge Diagnosis (1) Acute transverse myelitis: Code(s): G37.3 - Acute transverse myelitis in demyelinating disease of central nervous system Status: Acute (2) Acute on chronic back pain: Code(s): M54.9 - Dorsalgia, unspecified; G89.29 - Other chronic pain Status: Acute (3) Obstructive sleep apnea: Code(s): G47.33 - Obstructive sleep apnea (adult) (pediatric) Status: Acute (4) Bilateral leg weakness: Code(s): R29.898 - Other symptoms and signs involving the musculoskeletal system Status: Acute DS: Summary Hospital Course Hospital Course: This is a 43-year-old female with past medical history migraines, morbid obesity, hyperlipidemia, hypertension, asthma, obstructive sleep apnea, CKD stage 3a, chronic back pain/degenerative disc disease rheumatoid arthritis, cutaneous lupus, hidradenitis suppurativa, GERD who presents to [facility] complaining of progressive leg numbness and weakness. She has had chronic back pain that is worse than usual for the past few weeks. Is pulling in nature 11/15. It shoots up from her lower back to her thoracic spine. Also radiates down the legs. In the middle of October she had an epidural steroid injection. She sees Rheumatology and Pain Management at [facility]. She reports since the end of November she had numbness down her right hip and lower extremity. Than weakness began. Five days prior to admission she had weakness and loss of sensation in her left leg as well. Reports lack of sensation from the umbilicus down. Five days prior she presented to [facility] but there is a 4 hour wait so she left and went to [place]. There a lumbar spine MRI was performed she was subsequently septic home on prednisone for a short course and that helped her pain but her weakness and decreased sensation has persisted. She also has not been able to feel sensation to urinate. She had not had bowel incontinence. Denies acute back injury. She has not traveled. 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 She has not had fever/chills/shortness of breath/cough/chest pain/vomiting/body aches. No sick contacts. She got in contact with [facility] and was then advised to present to [facility] to be admitted under the hospitalist service on 12/22/2023. Acute transverse myelitis -MR lumbar spine obtained from outside facility, currently unable to pull up the image however neurology and Neurosurgery have extensively reviewed and report fairly significant degenerative disc disease at L1-2, L2-3, L3-4 the epidural lipomatosis lumbar spine, mild central stenosis at L2-3, mild to moderate central stenosis at L3-4. MR thoracic spine on 12/22/2023 demonstrates mild thoracic spondylosis and myelomalacia at T9-T10. Subsequent MR thoracic and cervical spine with contrast reveals a very small T2 hyperintense signal focus seen opposite C7, multilevel degenerative disc disease with variable degrees of spinal canal stenosis, intervertebral foraminal narrowing and root compression. No enhancing lesion seen. Previous myelomalacia at T9-T10 not visualized however her symptoms relate with transverse myelitis at T8-T9. -continue to appreciate neurology and neurosurgical recommendations. -available serum and CSF studies reviewed. -quad viral screen negative on 12/23/2023 -no change in lower extremity weakness or loss of sensation, continue to monitor for improvement. -accepted to [facility] on 12/23/23 -continue Solu-Medrol 250 mg IV q.6 hours started on 12/23/2023 -monitor blood pressure and Accu-Cheks and LFTs while on pulse dose steroids -12/25/2023: She now has sensation to pinprick at the lower extremity distal to the knee. She has 1/5 motor strength the left hip on flexion, she is able to wiggle her left toes. Encouragement given, the patient is enthusiastic about this. Continue therapy. Continue post so steroids. Neurology returns on Tuesday12/26/2023 will continue discussed with them. -12/26/2023: Patient continues to await transfer to [facility]. He is on day 3 of pulse dose steroids. Her left lower extremity is 5/5 strength in the right lower extremity has also improved to 1/5 strength at the hip. She has continued improvement, encouragement provided. No adverse effects of high-dose steroids identified. Continue a.c. HS Accu-Cheks and telemetry. Reviewed all available serum and CSF studies. No etiology identified. Discussed with Neurology. -12/27/2023: Continue Solu-Medrol. Will appreciate Neurology recommendations. Continue therapy. Continue DVT prophylaxis. -12/28/2023: Patient has 5/5 motor strength, sensation intact in all 4 extremities. She is on day 6 of pulse dose steroids at a 1000 mg per day. Begin to wean, decreasing Solu-Medrol to 150 mg IV q.6 hours. She remains on the wait list to [facility]. Neurology continues to provide recommendations. Her cervical myelogram demonstrates mild cervical spondylosis. -12/29/2023: The patient's bilateral leg weakness has completely resolved. She is in very happy spirits and wants to go home with home health. Prefers not to be transferred or go to acute rehab. Diagnosis to date is acute transverse myelitis of undetermined etiology. She has received 6 days of pulse dose steroids at a 1000 mg per day, an additional day of pulse dose steroids at 600 mg per day. Per Neurology recommendations she will be discharged to home with 80 mg per day of prednisone, decreased by 10 mg every 2 days then stop. She will follow-up with Dr. Montero in 6 weeks for continue management and follow-up of send out lab test. She is stable for discharge to home with home health. Discussion held on the effects, risk and benefits of prednisone. All her questions and concerns were answered to satisfaction. She was full code during the admission. Leukocytosis -procalcitonin normal. Likely due to steroid use Chronic essential hypertension -at goal -continue [employer] furosemide, spironolactone CKD stage IIIA -stable. Continue to trend daily renal function Hyperlipidemia -continue [employer] rosuvastatin 40 mg p.o. q.day JEAN PIERRE -continue CPAP at night Morbid obesity Chronic back pain Degenerative spine disease -continue [employer] gabapentin -counseling provided -pulse dose steroids as above Rheumatoid arthritis, cutaneous lupus -continue [employer] hydroxychloroquine 200 mg p.o. b.i.d. -no active symptoms Hidradenitis -continue [employer] doxycycline 100 mg p.o. b.i.d. -no active abscess GERD -continue [employer] Protonix 40 mg p.o. q.day -Living arrangements, functional status, significant history: Lives at home with spouse Note to the patient: The 21st Century Cures Act makes medical notes like these available to patients in the interest of transparency. Please be advised this is a medical document. It is intended for kbyw-ho-gnhn communication. It is written in medical language and may contain unfamiliar abbreviations or verbiage. Components may appear blunt or direct. Medical documents are intended to carry relevant information, facts as evident, and the clinical opinion of the practitioner at the time of the encounter. This note was generated by a speech recognition system and may contain inherent errors or omissions not intended by the user. Grammatical errors, random word insertions, deletions, pronoun errors and incomplete sentences are occasional consequences of this technology due to software limitations. Not all errors are caught or corrected. If there are questions or concerns about the content of this note or information contained within the body of this dictation they should be addressed directly with author for clarification. The file time of this note does not necessarily represent the time the patient was seen. Time Spent with Patient Time attestation: Total time spent providing and/or coordinating discharge services: Exam Const: General: comfortable and no acute distress Other: Obese. HENMT: Mouth: Yes moist mucous membranes Other: Crowded oropharynx, Mallampati score 4 Eyes: Pupils: Equal, round and reactive pupils present Neck: Neck: supple Resp: Effort & Inspection: normal respiratory effort Auscultation: clear to auscultation bilaterally Cardio: Rate: regular rate Rhythm: regular rhythm Heart sounds: no gallops, no murmurs and no rubs GI: GI Palp: Yes Soft to palpation and No Tenderness to palpation present (GI) Urinary Catheter: Urinary Catheter: patent and draining Neuro: Other: Starting from an inch above her umbilicus in circumferential fashion, no sensation to light touch or pain all the way down to the toes. 12/25/2023: She now has sensation to pinprick at the lower extremity distal to the knee. She has 1/5 motor strength the left hip on flexion, she is able to wiggle her left toes 12/26/2023: Left lower extremity 5/5 motor strength, sensation intact to light touch and pain. Right lower extremity 1/5 motor strength at the flexion of the right hip. Sensation absent. 12/27/2023: Sensation intact bilateral lower extremities equal. Left lower extremity 5/5 motor strength. Right lower extremity 4/5 however that is limited by her chronic pain at the right lower back 12/28/2023: Sensation intact all 4 extremities. 5/5 motor strength all 4 extremities. 12/29/2023: Sensation intact in all 4 extremities. 5/5 motor strength of 4 extremities. DS: Data Data Completed and Pending Completed studies during hospitalization: Pending at discharge 12/23/23 19:32 Cytology [PTH] Routine Labs on day of discharge: Labs from last 24 hours 12/29/23 12/29/23 12/28/23 07:23 06:07 19:42 WBC 10.3 H RBC 4.46 Hgb 14.7 Hct 41.9 MCV 93.9 MCH 33.0 MCHC 35.1 RDW 12.5 Plt Count 135 L MPV 11.9 H Immature Gran % (Auto) 0.6 H Neut % (Auto) 84.5 H Lymph % (Auto) 8.3 L [place] % (Auto) 6.5 Eos % (Auto) 0.0 Baso % (Auto) 0.1 L Lymph # (Auto) 0.86 L [place] # (Auto) 0.7 H Eos # (Auto) 0.0 Baso # (Auto) 0.0 Abs Immat Gran (auto) 0.06 H Absolute Neuts (auto) 8.7 H Absolute Nucleated RBC 0.000 Nucleated RBC % 0.0 % Immature Plt Fraction 10.9 Sodium 132 L Potassium 4.7 Chloride 99 Carbon Dioxide 28 Anion Gap 5 BUN 27 H Creatinine 0.90 Estim Creat Clear Calc 90 Estimated GFR > 60 Glucose 106 POC Capillary Glucose 109 H 200 H Calcium 8.2 L Magnesium 2.4 H Total Bilirubin 0.8 AST 24 ALT 27 Alkaline Phosphatase 136 H Total Protein 6.0 L Albumin 2.9 L B- and G-Tocopherol Procalcitonin Pending VZV IgM Antibody 12/28/23 12/28/23 12/24/23 16:24 11:21 05:25 WBC RBC Hgb Hct MCV MCH MCHC RDW Plt Count MPV Immature Gran % (Auto) Neut % (Auto) Lymph % (Auto) [place] % (Auto) Eos % (Auto) Baso % (Auto) Lymph # (Auto) [place] # (Auto) Eos # (Auto) Baso # (Auto) Abs Immat Gran (auto) Absolute Neuts (auto) Absolute Nucleated RBC Nucleated RBC % % Immature Plt Fraction Sodium Potassium Chloride Carbon Dioxide Anion Gap BUN Creatinine Estim Creat Clear Calc Estimated GFR Glucose POC Capillary Glucose 132 H 114 H Calcium Magnesium Total Bilirubin AST ALT Alkaline Phosphatase Total Protein Albumin B- and G-Tocopherol TNP Procalcitonin VZV IgM Antibody 12/24/23 05:24 WBC RBC Hgb Hct MCV MCH MCHC RDW Plt Count MPV Immature Gran % (Auto) Neut % (Auto) Lymph % (Auto) [place] % (Auto) Eos % (Auto) Baso % (Auto) Lymph # (Auto) [place] # (Auto) Eos # (Auto) Baso # (Auto) Abs Immat Gran (auto) Absolute Neuts (auto) Absolute Nucleated RBC Nucleated RBC % % Immature Plt Fraction Sodium Potassium Chloride Carbon Dioxide Anion Gap BUN Creatinine Estim Creat Clear Calc Estimated GFR Glucose POC Capillary Glucose Calcium Magnesium Total Bilirubin AST ALT Alkaline Phosphatase Total Protein Albumin B- and G-Tocopherol Procalcitonin VZV IgM Antibody 0.27 Discharge Plan Discharge Attending physician on discharge: Alanis Cavazos Consulting providers: Joshua Montero; Blaire Gaspar Discharging Clinician: Alanis Cavazos Patient Disposition: Home, Self-Care Activity: september shower Diet: as tolerated Patient Instructions: Antibiotic Form, Prednisone (By mouth) Stand Alone Forms: General Discharge Information Follow-up/Referrals: Efrain,Demetrio Sandhu MD [Primary Care Provider] - Call for Appointment Joshua Montero MD [Physician] - Call for Appointment (Call for appointment in approximately 6 weeks) Discharge Medications: New prednisone 20 mg tablet 10 mg PO .Instruction Qty: 72 0RF Rx Instructions: 80 mg by mouth per day, reduce by 10 mg every 2 days, then stop Continued spironolactone 100 mg tablet 100 mg PO DAILY triamcinolone acetonide 0.1 % cream 1 applic TOPICAL BID PRN (Reason: Skin Irritation) doxycycline monohydrate 100 mg capsule 100 mg PO BID pantoprazole 40 mg tablet,delayed release (DR/EC) 40 mg PO DAILY furosemide 20 mg tablet 20 mg PO DAILY hydroxychloroquine 200 mg tablet 200 mg PO BID albuterol sulfate 90 mcg/actuation HFA aerosol inhaler 2 inh INHALATION Q4H PRN (Reason: Shortness Of Breath Or Wheezing) ketoconazole 2 % cream 1 applic TOPICAL BID PRN (Reason: Skin Irritation) clindamycin phosphate 1 % lotion 1 applic TOPICAL DAILY PRN (Reason: Skin Irritation) rosuvastatin 40 mg tablet 40 mg PO DAILY varenicline 1 mg tablet 1 mg PO DAILY Humira(CF) Pen 40 mg/0.4 mL pen injector kit 40 mg SUBCUT [id number] Rx Instructions: newly prescribed, patient has yet to recieve aspirin [Fred Low Dose Aspirin] 81 mg Tablet,Delayed Release (Dr/Ec) 81 mg PO DAILY gabapentin 300 mg capsule 300 mg PO QHS gabapentin 100 mg capsule 100 mg PO BID Discontinued prednisone 20 mg tablet 40 mg PO DAILY Date of admission: 12/24/23 11:45 Primary Care Provider: Efrain,Demetrio Sandhu Admitting Provider: Rafael Magaña Attending physician on admission: Rafael Magaña Condition: Improved
[2023-12-29 11:38] LABS: Glucose Point of Care 115 mg/dl (65-105)
[2023-12-29 12:00] VITALS: PULSE 54
[2023-12-29 13:46] VITALS: BP 150/80; PULSE 61; RESP 16; TEMP 36.7; O2SAT 100
[2023-12-29 14:50] LABS: Procalcitonin 0.1 ng/mL
[2023-12-30 03:57] LABS: Varicella IgM Antibody 0.17
[2024-01-01 22:50] LABS: Lyme AB IgG, Immunoblot NO BANDS DETECTED; Lyme AB IgM, Immunoblot NO BANDS DETECTED
[2024-01-04 20:24] LABS: Treponema pallidum Ab FTA ABS NON-REACTIVE
== END 2023-12-29 14:35 | disposition home health service (06) | DRG 98 ==
LOC: ANHED 18:31 → ANH3MEDSUR 18:54
PROVIDERS: Internal Medicine; Psychiatry & Neurology Neurology; Admitting Provider Internal Medicine; Emergency Provider Physician Assistant; PCP Internal Medicine; Visit Provider General Practice
DX: G37.3 Acute transverse myelitis in demyelinating disease of central nervous system (principal); Z68.41 Body mass index [BMI] 40.0-44.9, adult; M54.9 Dorsalgia, unspecified; G89.29 Other chronic pain; G47.33 Obstructive sleep apnea (adult) (pediatric); R29.898 Other symptoms and signs involving the musculoskeletal system; Z20.822 Contact with and (suspected) exposure to COVID-19; E78.5 Hyperlipidemia, unspecified; I12.9 Hypertensive chronic kidney disease with stage 1 through stage 4 chronic kidney disease, or unspecified chronic kidney disease; N18.31 Chronic kidney disease, stage 3a; M06.9 Rheumatoid arthritis, unspecified; K21.9 Gastro-esophageal reflux disease without esophagitis; M51.36 Other intervertebral disc degeneration, lumbar region; J45.909 Unspecified asthma, uncomplicated; L73.2 Hidradenitis suppurativa; D72.828 Other elevated white blood cell count; T38.0X5A Adverse effect of glucocorticoids and synthetic analogues, initial encounter; L93.1 Subacute cutaneous lupus erythematosus; F17.210 Nicotine dependence, cigarettes, uncomplicated; E66.01 Morbid (severe) obesity due to excess calories; Z90.49 Acquired absence of other specified parts of digestive tract
CPT/HCPCS: 36415; 62302; 62328; 70553; 71046; 72126; 72146; 72156; 72157; 80048; 80053; 81025; 82040; 82042; 82390; 82525; 82607; 82746; 82784; 82945; 82948; 83735; 83873; 83916; 83921; 84145; 84157; 84446; 85025; 85027; 85055; 85610; 85652; 85730; 86036; 86052; 86140; 86160; 86225; 86362; 86430; 86592; 86617; 86703; 86780; 86787; 87070; 87529; 87637; 88108; 89051; 93005; 96374; 96375; 96376; 97110; 97116; 97161; 97165; 97530; 97535; 99285; A9270; A9577; G0378; G0379; G0432; J1644; J1815; J2060; J2270; J2405; J2919; J7512

== ENCOUNTER 2024-03-06 07:03 | Outpatient (CLI) | payer OTHER, SELFPAY ==
--- NOTE | 2024-03-02 09:54 | PC.NURSE ---
Pre Radiology instructions Report to the Imaging entrance on date _[id number]_ at time _0900_ for procedure Time: _0930_ YOU MAY BE MONITORED AT HOSPITAL FOR UP TO 4 HOURS AFTER YOUR PROCEDURE. A visitor will be allowed to accompany the patient into the hospital. You and your visitor will be asked to self-screen and do not enter if you have any COVID symptoms. A mask is OPTIONAL within the hospital. Patients are to have no food or drink 6 hours prior to procedure time Driving will be restricted after the procedure, you must have a person to drive you home. Labs will be drawn in preop area and once reviewed, you will be taken to radiology area for procedure. When the procedure is completed, you will be taken to outpatient where you will be monitored for several hours. You may have one visitor in this area. Other than holding anti-coagulants, patient may take other medication(s) as scheduled. Prior to your appointment date patients are instructed to hold anti-coagulants after discussing with ordering provider to stop. If unable to discontinue anti-coagulants please notify radiologist. ? No aspirin or warfarin (Coumadin) for 7 days prior to the procedure. ? No clopidogrel (Plavix), ticagrelor (Brilinta), prasugrel (Effient) or dabigatran (Pradaxa) for 5 days prior to the procedure. ? No rivaroxaban (Xarelto), apixaban (Eliquis), dipyridamole (Aggrenox or Persantine) or cilostazol (Pletal) for 2 days prior to the procedure. Medications to discontinue per physician: __Aspirin Date to take last dose: ___[id number] Pqlduhe was already aware of need to stop aspirin. Please leave all valuables, including medications, at home the day of procedure. The hospital will not accept responsibility for valuables. Wear comfortable, loose fitting clothing.? Follow any additional instructions given to you from ordering provider. Telephone instructions given to __Noma__and asked if any additional questions and then verbalized understanding. Patient advised to call scheduling provider office or registration scheduling [phone] if any additional questions.
[2024-03-02 09:57] VITALS: BMI 43.8
--- NOTE | 2024-03-02 10:20 | PC.NURSE ---
Pre Radiology instructions Report to the outpatient caesar blankenship on date _[id number]_ at time _0730_ for procedure Time: _0930_ YOU MAY BE MONITORED AT HOSPITAL FOR UP TO 4 HOURS AFTER YOUR PROCEDURE. A visitor will be allowed to accompany the patient into the hospital. You and your visitor will be asked to self-screen and do not enter if you have any COVID symptoms. A mask is OPTIONAL within the hospital. Patients are to have no food or drink 6 hours prior to procedure time Driving will be restricted after the procedure, you must have a person to drive you home. Labs will be drawn in preop area and once reviewed, you will be taken to radiology area for procedure. When the procedure is completed, you will be taken to outpatient where you will be monitored for several hours. You may have one visitor in this area. Other than holding anti-coagulants, patient may take other medication(s) as scheduled. Prior to your appointment date patients are instructed to hold anti-coagulants after discussing with ordering provider to stop. If unable to discontinue anti-coagulants please notify radiologist. ? No aspirin or warfarin (Coumadin) for 7 days prior to the procedure. ? No clopidogrel (Plavix), ticagrelor (Brilinta), prasugrel (Effient) or dabigatran (Pradaxa) for 5 days prior to the procedure. ? No rivaroxaban (Xarelto), apixaban (Eliquis), dipyridamole (Aggrenox or Persantine) or cilostazol (Pletal) for 2 days prior to the procedure. Medications to discontinue per physician: _Aspirin, patient was aware of need and stopped this on [id number] Date to take last dose: Please leave all valuables, including medications, at home the day of procedure. The hospital will not accept responsibility for valuables. Wear comfortable, loose fitting clothing.? Follow any additional instructions given to you from ordering provider. Telephone instructions given to ___Noma___and asked if any additional questions and then verbalized understanding. Patient advised to call scheduling provider office or registration scheduling [phone] if any additional questions.
--- NOTE | ~2024-03-06 | XR_ITS ---
EXAMINATION: XR lumbar puncture diagnostic DATE: 03/06/2024 10:56 INDICATION: Multiple sclerosis TECHNIQUE: The procedure including the risks and benefits was discussed with the patient. Risks discu ssed included spinal headache, cerebrospinal fluid leak, bleeding, and infection. The patient underst ood the risks and agreed to proceed. A timeout was performed to verify the patient's name, date of , and procedure to be performed. The skin overlying the L4-L5 level was prepped and draped in usual sterile fashion. Subcutaneous 1% lidocaine was used for local anesthesia. A 5 inch 22 gauge s andreas needle was advanced under fluoroscopic guidance. The needle was removed and the entry site was cleaned and dressed. There were no immediate complications. A total of 1 fluoroscopic image and one lateral radiograph were obtained. The amount of fluoroscopy time used during this procedure was 0.3 m inutes. Total DAP was 16.229 Gycm^2 The patient was taken to the nursing area for observation. FINDINGS: Real-time fluoroscopy demonstrates the needle at the L4-L5 level. Opening pressure was 22 c m water. (Normal range is variably defined as 6-20 cm water and up to 25 cm water in obese patients. Pressure >25 cm water is one of the modified Dandy criteria for idiopathic intracranial hypertension) . 15 mL of clear, colorless fluid was collected in 4 tubes. IMPRESSION: 1. Successful fluoro-guided lumbar puncture. Reviewed, dictated and finalized at location A.
[2024-03-06 08:12] VITALS: BP 122/74; PULSE 61; RESP 18; TEMP 36.7; O2SAT 99
[2024-03-06 08:17] LABS: Mean Platelet Volume 10.4 fl (7.4-10.4); Platelet Count Result 195 k/mm3 (150-375)
[2024-03-06 09:02] LABS: INR 1.1; Prothrombin Time 14.2 Seconds (11.1-14.7)
[2024-03-06 10:45] VITALS: BP 122/79; PULSE 63; RESP 18; O2SAT 98
[2024-03-06 11:09] LABS: Glucose CSF 48 mg/dL (40-70); Total Protein CSF 29 mg/dL (12-60)
[2024-03-06 11:15] VITALS: BP 119/68; PULSE 63; RESP 20; O2SAT 99
[2024-03-06 11:29] LABS: Appearance CSF Clear (Clear); CSF source CSF; Color CSF Colorless (Colorless); Lymphocytes CSF 2 % (40-80); Monocytes CSF 1 % (15-45); Nucleated Cell CSF 1 /uL (0-5); Red Blood Cell CSF 0 (0-2)
[2024-03-06] MEDS: ACETAMINOPHEN 500 MG TABLET PO (11:30)
[2024-03-06 11:45] VITALS: BP 119/70; PULSE 58; RESP 19
[2024-03-06 12:15] VITALS: BP 115/59; PULSE 65; RESP 20; TEMP 36.7
[2024-03-06 12:40] VITALS: BP 115/62; PULSE 66; RESP 18
[2024-03-13 15:30] LABS: Albumin, Serum 3.4
[2024-03-13 15:31] LABS: Immunoglobulin G, Serum 967
[2024-03-13 15:53] LABS: IgG Index, CSF 0.55; Synthesis Rate IgG, CSF -1.5
[2024-03-13 15:54] LABS: Albumin, CSF 15.3; IgG, CSF 2.4
== END 2024-03-06 12:42 | disposition home or self-care (01) ==
PROVIDERS: PCP Internal Medicine; Referring Provider Psychiatry & Neurology Neurology; Visit Provider Radiology Diagnostic Radiology
PROC: 009U3ZZ Drainage of Spinal Canal, Percutaneous Approach (ICD-10-PCS; CPT 62328; principal; 2024-03-06 09:30)
DX: Z01.818 Encounter for other preprocedural examination (principal); G35 Multiple sclerosis
CPT/HCPCS: 36415; 62328; 82040; 82042; 82784; 82945; 83873; 83916; 84157; 85049; 85610; 87070; 89051; A9270